=== PATIENT | female | born 1990 | race Caucasian/White ===

== ENCOUNTER 2021-01-18 16:24 | Outpatient (REF) | payer BC, SELFPAY ==
[2021-01-20 11:24] LABS: COVID-19 RT-PCR UVMMC Result Negative (Negative)
== END 2021-01-18 16:25 | disposition home or self-care (01) ==
LOC: LBN 16:24
PROVIDERS: Visit Provider Nurse Practitioner Family
DX: Z20.822 Contact with and (suspected) exposure to COVID-19 (principal); J00 Acute nasopharyngitis [common cold]
CPT/HCPCS: U0003

== ENCOUNTER 2021-05-15 11:37 | Outpatient (REF) | payer BC, SELFPAY ==
--- NOTE | 2021-05-15 11:15 | PAPFT_PTH ---
PATIENT: Thao Garzon LOC: [facility] U#:[id number] AGE/SX: 30/F ROOM: RE05/15/[address]: Shayla Fish NP : [id number] BED: DIS: 05/15/2021 SPEC #: [id number] RECD: 05/15/21 13:07 STATUS: ZAC REPadma #: [id number] ARSENIO: 05/15/21 11:[address]: Shayla Fish NP DEPT: [facility] Cytology RECD BY: Ambreen Ratliff ENTERED: 05/15/21 13:07 SP TYPE: PAPFT OT DR: Unknown,Unknown Tissues: 1 - CX/ENDOCX FOR PAP SMEARS Procedures: PAP THIN PREP/UVM Screening HPV DNA PROBE Comments: [id number]
== END 2021-05-15 11:38 | disposition home or self-care (01) ==
LOC: LBN 11:37
PROVIDERS: Visit Provider Nurse Practitioner Women's Health
DX: Z12.4 Encounter for screening for malignant neoplasm of cervix (principal); Z11.51 Encounter for screening for human papillomavirus (HPV)
CPT/HCPCS: 88142; 87624

== ENCOUNTER 2022-05-28 01:52 | Outpatient (CLI) | payer BC, SELFPAY ==
[2022-05-28 16:14] LABS: Abs Immature Grans 0.02 10^3/uL (0.0-0.06); Absolute Basophil Count 0.03 10^3/uL (0.0-0.2); Absolute Lymphocyte Count 1.54 10^3/uL (1.2-3.4); Absolute Monocyte Count 0.47 10^3/uL (0.1-0.8); Basophils % 0.4; Eosinophils % 2.7; HCT 37.7 % (36.0-46.0); HGB 13.3 g/dL (11.2-15.7); Immature Grans % 0.3; Lymphocytes % 20.9; MCH 29.4 pg (27.0-33.0); MCHC 35.3 % (32.0-36.0); MCV 83 fL (80-95); MPV 9.6 fL (8.0-11.0); Monocytes % 6.4; Neutrophils % 69.3; Platelet Count 224 10^3/uL (130-400); RBC 4.52 10^6/uL (3.93-5.22); RDW 11.9 % (11.7-14.6); RDW-SD 35.9 fL; WBC 7.36 10^3/uL (4.4-10.8)
[2022-05-29 20:01] LABS: Hepatitis B Surface Ag Negative (Negative)
[2022-05-29 20:31] LABS: Hepatitis C Ab w Rflx HCV PCR Negative (Negative)
[2022-05-29 20:33] LABS: HIV-1/2 Ag & Ab Screen Negative (Negative)
[2022-05-30 11:17] LABS: Varicella IgG Antibody Positive (See Note)
[2022-05-30 11:22] LABS: Rubella IgG Ab (UVM) Positive (See Note)
[2022-05-31 14:24] LABS: Syphilis IgG w/Reflex Nonreactive (Nonreactive)
== END 2022-05-28 01:53 | disposition home or self-care (01) ==
LOC: LBO 01:53
PROVIDERS: Visit Provider Advanced Practice Midwife
DX: Z34.91 Encounter for supervision of normal pregnancy, unspecified, first trimester (principal)
CPT/HCPCS: 36415; 86787; 86803; 86850; 86900; 86901; 87340; 87389; 85025; 86762; 86780

== ENCOUNTER 2022-05-28 16:00 | Outpatient (REF) | payer BC, SELFPAY ==
[2022-05-30 13:40] LABS: Chlamydia Result Negative (Negative); GC Result Negative (Negative)
== END 2022-05-28 16:01 | disposition home or self-care (01) ==
LOC: LBN 16:00
PROVIDERS: Visit Provider Advanced Practice Midwife
DX: Z34.91 Encounter for supervision of normal pregnancy, unspecified, first trimester (principal); Z3A.11 11 weeks gestation of pregnancy; Z11.3 Encounter for screening for infections with a predominantly sexual mode of transmission
CPT/HCPCS: 87491; 87591; 87086

== ENCOUNTER 2022-06-13 02:32 | Outpatient (CLI) | payer BC, SELFPAY ==
[2022-06-13 08:42] LABS: Panorama Kit Sent via Fed Ex
== END 2022-06-13 02:33 | disposition home or self-care (01) ==
LOC: LBO 02:32
PROVIDERS: Visit Provider Advanced Practice Midwife
DX: Z34.91 Encounter for supervision of normal pregnancy, unspecified, first trimester (principal); Z3A.13 13 weeks gestation of pregnancy
CPT/HCPCS: 36415

== ENCOUNTER 2022-09-27 05:01 | Outpatient (CLI) | payer BC, SELFPAY ==
[2022-09-27 11:13] LABS: HCT 32.2 % (36.0-46.0); HGB 11.3 g/dL (11.2-15.7); MCH 30.5 pg (27.0-33.0); MCHC 35.1 % (32.0-36.0); MCV 87 fL (80-95); MPV 9.3 fL (8.0-11.0); Platelet Count 145 10^3/uL (130-400); RDW 12.6 % (11.7-14.6); RDW-SD 39.1 fL; WBC 7.62 10^3/uL (4.4-10.8)
[2022-09-27 11:40] LABS: Glucose,1 Hr (Glucola) 116 mg/dL (80-140)
== END 2022-09-27 05:02 | disposition home or self-care (01) ==
LOC: LBO 05:01
PROVIDERS: Visit Provider Advanced Practice Midwife
DX: Z34.93 Encounter for supervision of normal pregnancy, unspecified, third trimester (principal); Z3A.28 28 weeks gestation of pregnancy
CPT/HCPCS: 36415; 82950; 85027

== ENCOUNTER 2023-12-26 22:55 | Outpatient (REF) | payer OTHER, SELFPAY ==
[2023-12-26 14:21] LABS: Abs Immature Grans 0.01 10^3/uL (0.0-0.06); Absolute Basophil Count 0.06 10^3/uL (0.0-0.2); Absolute Eosinophil Count 0.31 10^3/uL (0.0-0.7); Absolute Lymphocyte Count 2.45 10^3/uL (1.2-3.4); Absolute Monocyte Count 0.35 10^3/uL (0.1-0.8); Absolute Neutrophil Count 2.62 10^3/uL (1.2-6.7); Eosinophils % 5.3 %; HCT 39.2 % (36.0-46.0); HGB 13.7 g/dL (11.2-15.7); Immature Grans % 0.2 %; Lymphocytes % 42.2 %; MCHC 34.9 % (32.0-36.0); MCV 83 fL (80-95); MPV 9.9 fL (8.0-11.0); Neutrophils % 45.3 %; Platelet Count 313 10^3/uL (130-400); RBC 4.72 10^6/uL (3.93-5.22); RDW 11.6 % (11.7-14.6); RDW-SD 34.7 fL
[2023-12-26 14:26] LABS: ESR 5 mm/hr (0-20)
[2023-12-26 15:29] LABS: ALT 20 U/L (14-59); AST 15 U/L (15-37); Albumin 4.2 g/dL (3.4-5.0); Alkaline Phosphatase 67 U/L (46-116); BUN 12 mg/dL (7-18); Bilirubin, Total 0.94 mg/dL (0.2-1.0); CREATININE 0.7 mg/dL (0.55-1.02); Calcium 9.5 mg/dL (8.5-10.1); Chloride 105 mmol/L (98-107); Estimated GFR 115.59 (mL/min/1.73m2); Glucose 94 mg/dL (74-106); Potassium 4.3 mmol/L (3.5-5.1); Sodium 143 mmol/L (136-145); TSH (W/Ref FT4) 0.98 uIU/mL (0.36-3.74); Total Protein 7.4 g/dL (6.4-8.2)
[2023-12-26 15:31] LABS: C-Reactive Protein < 0.50 mg/dL (<or=0.5)
--- OUTSIDE RECORDS SUMMARY | 2023-12-26 22:56 | XMS_ITS | Encounter Summary ---
Author Organization [facility] Address [facility] [place] [address] Care Team Providers Care Director Perioperative Name Role Phone Sruthi Zurita APRN Primary Care Provider [phone] Encounter Details Date Type Department Care Team (Latest Contact Info) Description 12/18/2022 Encounter Social History Tobacco Use Types Packs/Day Years Used Date Smoking Tobacco: Never Smokeless Tobacco: Never Overall Financial Resource Strain (CARDIA) Answe r Date Recorded How hard is it for you to pa y for the very basics like food, housing, medical care, and heating? Not hard at all 11/02/2022 Hunger Vital Sign Answer Date Recorded Within the past 12 months, y ou worried that your food would run out before you got the money to buy more. Never true 11/03/19 23 Within the past 12 months, t he food you bought just didn't last and you didn't have money to get more. Never true 11/02/2022 PRAPARE - Transportation Answer Date Re corded In the past 12 months, has l ack of transportation kept you from medical appointments or from getting medications? No 10/13 In the past 12 months, has l ack of transportation kept you from meetings, work, or from getting things needed for daily living? No 11/02/2022 Housing Stability Vital Sign Answer Sergey e Recorded In the last 12 months, was t here a time when you were not able to pay the mortgage or rent on time? No 11/02/2022 In the last 12 months, how many places have you lived? 1 11/02/2022 In the last 12 months, was t here a time when you did not have a steady place to sleep or slept in a half-way (including now)? No 11/02/2022 Sex and Gender Information Value Date Recorded Sex Assigned at Not on file Gender Identity Not on file Sexual Orientation Not on file documented as of this encounter Miscellaneous Notes * Note - Alba Cheatham RN - 12/18/2022 11:55 AM EST This note was copied from a baby's chart. Services Note: S/O 09:00 Met with mom Thao this morning. ANNE Cates present and supportive. She reports baby Rey had some cluster feeding sessions overnight. She reports she is still experiencing a sad feeling that is intense a short time after baby latches on. She recalls this did occur with breast feeding her older daughter as well. 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 She also has Raynaud Syndrome and has not been experiencing nipple discomfort with breast feeding this baby. She reports some cold sensitivity to her nipples with color change and discomfort with her first baby. She reports she still has some right sided nipple pain that occurs sharply for baby's first few sucks and then resolves as feeding continues. Left side is not really having much discomfort at all. On exam right nipple face has pinpoint scabbed red area at about 1 o'clock. She is applying [employer] nipple butter and also has hydrogel pads which are both providing relief. Offered to support latch session but Thao declined and felt they would be leaving shortly. She will call out for support if she wishes. A Experienced breast feeding mom experiencing feelings of sadness a short time after baby latches on, likely dysphoric milk ejection reflex, also has Raynaud Syndrome but is not having any nipple color change with feedings thus far. P Offered support and encouragement. Reviewed management of breast engorgement symptoms and nipple pain management. Encouraged Thao to reach out for follow up visit on 6L if she felt shewould like additional support. Feeding Plan: Offer breast feeding every two to three hours at early feeding cues. 20 minutes spent providing support and education, Thao verbalized understanding of information provided. Alba Cheatham RN IBCLC [facility] Services documented in this encounter Plan of Treatment Not on file documented as of this encounter Visit Diagnoses Not on filedocumented in this encounter Care Teams Director Perioperative Relationship Specialty Start Date End Date Sruthi Zurita, DOOR BUILDER [employer] [facility] [address] PCP - General Family Medicine 07/30/22 documented as of this encounter
--- OUTSIDE RECORDS SUMMARY | 2023-12-26 22:56 | XMS_ITS | Encounter Summary ---
Author Organization [facility] Address [facility] [place] [address] Care Team Providers Care Enzyme Chemist Name Role Phone Sruthi Zurita APRN Primary Care Provider [phone] Encounter Details Date Type Department Care Team (Late st Contact Info) Description 12/18/2022 Notes Only Obstetrics and Gynecology at [facility] [place] [id number] Kate Saenz, CCMA Social History Tobacco Use Types Packs/Day Years [...] place to sleep or slept in a halfway (including now)? No 11/02/2022 Sex and Gender Information Value Date Recorded Sex Assigned at Not on file Gender Identity Not on file Sexual Orientation Not on file documented as of this encounter Progress Notes * Kate Saenz CCMA - 12/18/2022 10:31 AM EST [facility] paperwork filled out and scanned into patients chart. documented in this encounter Plan of Treatment Not on file documented as of this encounter Visit Diagnoses Not on filedocumented in this encounter Care Teams Enzyme Chemist Relationship Specialty Start Date End Date Sruthi Zurita APRN [facility] [place] [address] PCP - General Family Medicine 07/30/22 documented as of this encounter
--- OUTSIDE RECORDS SUMMARY | 2023-12-26 22:56 | XMS_ITS | Encounter Summary ---
Author Organization [facility] Address [facility] [place] [address] Care Team Providers Care Freelance Web Designer Name Role Phone Sruthi Zurita APRN Primary Care Provider [phone] Encounter Details Date Type Department Care Team (Late st Contact Info) Description 01/01/2023 Telephone [place] [phone] [facility] [place] [address] Social History Tobacco Use Types Packs/Day Years [...] place to sleep or slept in a snf (including now)? No 11/02/2022 DH IPV Inpatient Questions Answer Date Recorded Does Anyone Try to Keep You From Having Contact with Others or Doing Things Outside Your Home? no 01/18/2023 Feels Threatened by Someone no 09/2022 Feels Unsafe at Home or Work/School no 01/18/2023 Physical Signs of Abuse Present no 01/18/2023 Sex and Gender Information Value Date Recorded Sex Assigned at Not on file Gender Identity Not on file Sexual Orientation Not on file documented as of this encounter Miscellaneous Notes * Telephone Encounter - Susu Alcocer - 01/07/2023 3:00 PM EST I called and left a message for patient to call [phone] directly and schedule surgery with Dr. STEPHEN . * Telephone Encounter - Susu Alcocer - 01/01/2023 1:52 PM EST I called and left a message for patient to call [phone] directly and schedule surgery with Dr. STEPHEN. documented in this encounter Plan of Treatment Not on file documented as of this encounter Visit Diagnoses Not on filedocumented in this encounter Care Teams Freelance Web Designer Relationship Specialty Start Date End Date [place] [address] PCP - General Family Medicine 07/30/22 documented as of this encounter
--- OUTSIDE RECORDS SUMMARY | 2023-12-26 22:56 | XMS_ITS | Encounter Summary ---
Author Organization [facility] Address [facility] [place] [address] Care Team Providers Care Meteorology Teacher Name Role Phone Sruthi Zurita APRN Primary Care Provider [phone] Encounter Details Date Type Department Care Team (Latest Contact Info) Description 12/27/2022 Travel Social History Tobacco Use Types Packs/Day Years [...] place to sleep or slept in a jail (including now)? No 11/02/2022 Sex and Gender Information Value Date Recorded Sex Assigned at Not on file Gender Identity Not on file Sexual Orientation Not on file documented as of this encounter Plan of Treatment Not on file documented as of this encounter Visit Diagnoses Not on filedocumented in this encounter Care Teams Meteorology Teacher Relationship Specialty Start Date End Date Sruthi Zurita, BELT MOLDER [address] [place] [address] PCP - General Family Medicine 07/30/22 documented as of this encounter
--- OUTSIDE RECORDS SUMMARY | 2023-12-26 22:56 | XMS_ITS | Encounter Summary ---
Author Organization [facility] Address [facility] [place] [address] Care Team Providers Care Venue Attendant Name Role Phone Sruthi Zurita APRN Primary Care Provider [phone] Reason for Referral * Physical Therapy (Routine) - Closed Specialty Diagnoses / Procedures Referred By Contac t Referred To Contact Physical Therapy Diagnoses Encounter for routine follow-up Pelvic Mario Hayward MD [facility] [place] [address] [address] [place] [address] Referral ID Status Reason Start Date Expiration Date V isits Requested Visits Authorized [id number] Closed Evaluate and Treat 01/30/2023 01/30/2024 12 12 Reason for Visit * Reason Comments Care Encounter Details Date Type Department Care Team (Latest Contact Info) Description 01/30/2023 2:30 PM EST Visit Obstetrics [place] [address] Mario Hayward MD [facility] OBSTET[facility] [place] [address] Encounter for routine follow-up Social History Tobacco Use Types Packs/Day Years Used Date Smoking Tobacco: Never Smokeless Tobacco: Never Alcohol Use Standard Drinks/Week Comments Not Asked 0 (1 standard drink = 0.6 oz pur e alcohol) 2 - 4 per week [facility] Utilities Answer Date Recorded In the past 12 months has th e electric, gas, oil, or water company threatened to shut off services in your home? No 01/30/2023 Humiliation, Afraid, Rape, and Kick questionnair e Answer Date Recorded Within the last year, have y ou been afraid of your partner or ex-partner? No 01/30/2023 Within the last year, have y ou been humiliated or emotionally abused in other ways by your partner or ex-partner? No Within the last year, have y ou been kicked, hit, slapped, or otherwise physically hurt by your partner or ex-partner? No 01/30/2023 Within the last year, have y ou been raped or forced to have any kind of sexual activity by your partner or ex-partner? No 01/30/2023 Overall Financial Resource Strain (CARDIA) Answe r Date Recorded How hard is it for you to pa y for the very basics like food, housing, medical care, and heating? Not hard at all 01/30/2023 Hunger Vital Sign Answer Date Recorded Within the past 12 months, y ou worried that your food would run out before you got the money to buy more. Never true 01/31/20 Within the past 12 months, t he food you bought just didn't last and you didn't have money to get more. Never true 01/30/2023 PRAPARE - Transportation Answer Date Re corded In the past 12 months, has l ack of transportation kept you from medical appointments or from getting medications? No 01/12 In the past 12 months, has l ack of transportation kept you from meetings, work, or from getting things needed for daily living? No 01/30/2023 Housing Stability Vital Sign Answer Sergey e Recorded In the last 12 months, was t here a time when you were not able to pay the mortgage or rent on time? No 01/30/2023 In the last 12 months, how many places have you lived? 1 01/30/2023 In the last 12 months, was t here a time when you did not have a steady place to sleep or slept in a assisted (including now)? No 01/30/2023 DH IPV Inpatient Questions Answer Date Recorded [...] on file documented as of this encounter Last Filed Vital Signs Vital Sign Reading Time Taken Comments Blood Pressure 105/69 01/30/2023 2:34 PM EST Pulse 67 01/30/2023 2:34 PM EST Temperature 36.2 ??C (97.2 ??F) 01/30/2023 2:34 PM ES T Respiratory Rate 17 01/30/2023 2:34 PM EST Oxygen Saturation 99% 01/30/2023 2:34 PM EST Inhaled Oxygen Concentration - - Weight 54.3 kg (119 lb 12.8 oz) 01/30/2023 2:34 PM EST Height 157.5 cm (5' 2) 01/30/2023 2:34 PM EST Body Mass Index 21.91 01/30/2023 2:34 PM EST documented in this encounter Progress Notes * Mario Hayward MD - 01/30/2023 2:30 PM EST 32 yo now about 6 weeks s/p at 40w1d vy VAVD for deep variables. PP course has been complicated by progressive carpal tunnel syndrome. Had surgery on 01/18/23. Improved symptoms. Previously used Nuva Ring. Contraception plan: Nuva Ring Had abnormal pap 9 years ago. Received HPV vaccine. Several normal PAPs. Probably last 2-3 years. Desires to have regular [employer] perform pap smear. Interested in pospartum Pelvic floor PT - Referral placed. PAP smear deferred today. VSS, Afebrile Abd soft, NT. Uterus not palpable on abdominal exam. A/P: Doing well. Nuva Ring script sent Referral to pelvic floor PT. MD Floresita documented in this encounter Plan of Treatment Scheduled Referrals Name Type Priority Associated Diagnoses Orde r Schedule Referral to Physical Therapy Outpatient Referral Routine Encounter for routine follow-up Ordered: 01/30/2023 documented as of this encounter Visit Diagnoses Diagnosis Encounter for routine follow-up Routine follow-up documented in this encounter Care Teams Venue Attendant Relationship Specialty Start Date End Date Sruthi Zurita, CONRAD [address] [place] [address] PCP - General Family Medicine 07/30/22 documented as of this encounter
--- OUTSIDE RECORDS SUMMARY | 2023-12-26 22:56 | XMS_ITS | Encounter Summary ---
Author Organization [facility] Address [facility] [place] [address] Care Team Providers Care Animal Keeper Head Name Role Phone Sruthi Zurita APRN Primary Care Provider [phone] Encounter Details Date Type Department Care Team (Late st Contact Info) Description 12/28/2022 Notes Only Obstetrics and Gynecology at [facility] [place] [phone] Ibeth Monson LPN Social History Tobacco Use Types Packs/Day Years [...] place to sleep or slept in a group home (including now)? No 11/02/2022 Sex and Gender Information Value Date Recorded Sex Assigned at Not on file Gender Identity Not on file Sexual Orientation Not on file documented as of this encounter Progress Notes * Ibeth Gonzales CMA - 12/28/2022 1:25 PM EST Breast pump order filled out and [facility] to [facility] at [phone] Ibeth Gonzales CMA documented in this encounter Plan of Treatment Not on file documented as of this encounter Visit Diagnoses Not on filedocumented in this encounter Care Teams Animal Keeper Head Relationship Specialty Start Date End Date Sruthi Zur[place] [address] PCP - General Family Medicine 07/30/22 documented as of this encounter
--- OUTSIDE RECORDS SUMMARY | 2023-12-26 22:56 | XMS_ITS | Encounter Summary ---
Author Organization [facility] [place] [address] Care Team Providers Care Coding Quality Analyst Name Role Phone Sruthi Zurita APRN Primary Care Provider [phone] Reason for Visit * Auth/Cert (Routine) Specialty Diagnoses / Procedures Referred By Contac t Referred To Contact Diagnoses Labor and delivery, indication for care Procedures VAGINAL DELIVERY Africa Osorio MD [facility] [place] [address] [facility] Referral ID Status Reason Start Date Expiration Date Visits Re quested Visits Authorized [id number] 1 1 Encounter Details Date Type Department Care Team (Latest Contact Info) Description 12/16/2022 2:18 AM EST - 12/18/2022 11:55 AM [facility] Hospital [place] [address] Africa Osorio MD [facility] [place] [address] Vacuum-assisted vaginal delivery Discharge Disposition: Home Social History Tobacco Use Types Packs/Day Years [...] place to sleep or slept in a fdc (including now)? No 11/02/2022 Sex and Gender Information Value Date Recorded Sex Assigned at Not on file Gender Identity Not on file Sexual Orientation Not on file documented as of this encounter Last Filed Vital Signs Vital Sign Reading Time Taken Comments Blood Pressure 117/78 12/18/2022 8:46 AM EST Pulse 71 12/18/2022 8:46 AM EST Temperature 36.8 ??C (98.2 ??F) 12/18/2022 8:46 AM ES T Respiratory Rate 16 12/18/2022 8:46 AM EST Oxygen Saturation 99% 12/18/2022 8:46 AM EST Inhaled Oxygen Concentration - - Weight - - Height - - Body Mass Index - - documented in this encounter Discharge Summaries * Winsome Perez MD - 12/18/2022 11:55 AM EST Images from the original note were not included. Discharge Summary Patient Name: Thao Garzon Patient Age: 32 y.o. Language: Luxembourgish Race: White Ethnicity: Not nor Admit date: 12/16/2022 Discharge date and time: 12/18/2022 Attending Physician: No att. providers found Discharge Physician: Mario Hayward MD Care Provider: GIOVANY Referring Hospital: N/a Follow-up Recommendations for Providers: - Routine 6 week visit Inpatient Provider Contact Information: [facility] [employer] Department, Discharge Diagnoses (Hospital Problems) and Secondary Diagnoses (Chronic Problems) Active Hospital Problems Diagnosis Labor and delivery, indication for care Resolved Hospital Problems No resolved problems to display. Active Non-Hospital Problems Diagnosis Encounter for supervision of other normal , third trimester Raynaud's syndrome Dyspareunia in female Operations/Major Procedures: : CHARLES Indication for Admission: active labor History of Presentation: Thao Garzon is a 32 y.o. at 40w1d gestation being admitted for labor management. Admission History HPI: Thao presents to the [facility] due to concern for SROM. Approximately half an hour ago experienced a gush of clear fluid with some tinges of blood. Continues to leak copious amounts of clear fluid. Very much wants epidural, is flori painfully. Is scheduled for an elective induction today given advanced cervical dilation and proximity to hospital. Her has been complicated by: -- History of vacuum-assisted vaginal delivery for indeterminate status Review of Systems: Negative to complete review except as noted in the HPI. Hospital Course Including Delivery and Events The patient was admitted through OB triage for spontaneous rupture of membranes. Her cervix was checked and it was noted to be 5 cm. Due to some deep variable decelerations in the second stage of labor, a discussion was had about the use of a vacuum to assist in delivery. She consented to this and it was completed without complication. There was one pop off and two pulls. She subsequently underwent spontaneous vaginal delivery with epidural for analgesia. She had an EBL of 250 cc without complication. She delivered a liveborn male infant with APGARs of 7 and 9, and weight of 4080 gm. She had a second degree laceration that was repaired with 3-0 vicryl suture. Her course was otherwise uneventful. Her pain was well controlled with oral pain medications. She was tolerating a regular diet, was ambulating and voiding without difficulty, and was passing flatus. Her fundal exam was as expected, and her lochia was within normal limits. She was establishing breast feeding of her . Patient planned Nuva Ring at 6 weeks for contraception. She was discharged to home on PPD#2 with plans for follow up in clinic as above. Delivery Information Information for the patient's : Rey Garzon [[id number]] INFORMATION Rey Garzon 12/16/2022 8:10 AM by Vaginal, Vacuum (Extractor) Sex: male Gestational Age: 40w1d Measurements: Weight: 8 lb 15.9 oz (4080 g) APGARS One Minute Five Minutes Ten Minutes Totals: 7 9 Blood Loss: OB OR Quantitative Blood Loss Totals 12/15/22 1602 - 12/16/22 0302 None Vital signs at Discharge: BP: 117/78, Heart Rate: 71, Temp: 36.8 ??C (98.2 ??F), Resp: 16, Functional and Cognitive status: stable Important Studies and Lab Data: Labs: Last 3 wbc, hgb, hct plt Recent Labs 12/16/22 0405 11/02/22 1118 WBC 7.1 9.8* HGB 11.6* 12.2 HCT 34.6* 36.4 PLATELET 181 216 No results found for this or any previous visit (from the past 72 hour(s)). Studies: N/a Pending Studies and Lab Data: None Discharge Conditions/Prognosis: good Discharge to: Home Contraceptive Plans: Considering NuvaRing at 6 weeks Allergies at Discharge: Allergies Allergen Reactions Cephalosporins Rash NA Rash Grass Pollen Other (See Comments) Seasonal allergies, allergic rhinitis Sulfa (Sulfonamide Antibiotics) Rash Rash Other reaction(s): Rash NA Rash Sulfasalazine Rash Immunizations Given this Hospitalization: Immunization History Administered Date(s) Administered HPV, Quadrivalent 12/22/2013, 01/29/2014, 08/02/2014 Hepatitis B Vaccine, Ped/adol 03/03/1996, 05/18/1997, 05/26/1998 Hib Prp-omp 10/17/1989 Hib, Unspecified Formulation 10/17/1989 Inactivated Polio Vaccine 1988, 1988, 01/14/1989, 08/18/1993 Influenza Vaccine, Unspecified Formulation 11/16/2016 MMR Vaccine, Live 10/17/1989, 05/18/1997 Meningococcal Polysaccharide (A,C,Y,W-135) Diphtheria Toxoid Conjugate (MCV4P) 01/07/2007 Meningococcal polysaccharide (groups A, C, Y, W-135) TT conjugate 01/07/2007 Moderna Covid-19 Monovalent 12Yr+ (Master Plumber 100mcg) 02/10/2020, 03/15/2020 Td Vaccine, Adult, Unspecified Formulation 05/18/1997 Tdap Vaccine 06/30/2007 Tuberculin Skin Test, PPD 04/21/2016, 04/25/2016 Discharge Medications: Your Medications New Medications Dose Details acetaminophen 325 mg tablet Commonly known as: Tylenol Take 2 tablets by mouth every 6 hours as needed for Pain. 650 mg Refills: 0 ibuprofen 600 mg tablet Commonly known as: Advil Take 1 tablet by mouth every 6 hours as needed for Pain. 600 mg Refills: 0 Continued medications, unchanged Dose Details escitalopram 10 mg tablet Commonly known as: Lexapro Take 10 mg by mouth daily. 10 mg Refills: 0 1+1 ORAL Take by mouth. Refills: 0 Smoking Status at Discharge: Social History Tobacco Use Smoking Status Never Smokeless Tobacco Never Instructions Given to Patient at Discharge: There are no outpatient Patient Instructions on file for this admission. General Instructions Nurse Inpatient Note - Vaginal Delivery Follow-ups: ? 2 week and 6 week visit will be scheduled with your primary OB provider ? 6 week visit will be scheduled with your primary OB provider ? please call to schedule your 6 week visit with your primary OB provider Maternal Discharge Instructions Rest: Although it may seem impossible to get enough rest, simple planning will help. Plan to rest, and/or sleep when your baby does. Limiting visitors also helps. Other family members can help by doing housework, caring for other children and/or helping limit visitors. Activity: Exercise can be gradually increased following your delivery, depending on the doctor's recommendation. It is recommended that you do not swim until the vaginal bleeding stops or perform anyheavy lifting for six weeks. ???Aim to stay active for 20-30 minutes a day. When you first start exercising after childbirth, try simple exercises that help strengthen major muscle groups, including abdominal and backmuscles. Gradually add moderate- intensity exercise. Remember, even 10 minutes of exercise benefits your body. If you exercised vigorously before or you are a adult school counselor, you can work up to vigorous-intensity activity. Stop exercising if you feel pain.?? https://www.acog.org/Patients/FAQs/Wgajponu-Feyug-Fchlsasqm?IsMobileSet=false#ho w Nutrition: Your diet following the of your baby is as important as it was before the baby wasborn. Drinking a minimum of 6-8 glasses of water a day will help keep you hydrated. Continue takingyour vitamins until you are no longer . Do not attempt to lose weight during the first six weeks. Sweating. Hormonal changes following delivery frequently cause night sweats which are normal over the next 6 weeks. Sleeping on towels and using a fan may make you more comfortable. Lochia: (Flow) Your flow should be no heavier than a normal period. It will be bright red and then transition to pink, brown, yellow, and finally colorless. This may last a few weeks. If your vaginalbleeding becomes bright red again, decrease your activity. We recommend pelvic rest until your bleeding and spotting stops and your episiotomy or vaginal tearhas healed. This may take up to six weeks. Pelvic rest includes activities such as douching, use oftampons/menstrual cups or sexual intercourse. Bladder: For the next 2 weeks, empty your bladder every 2 hours while awake and at least every 4 hours at night. Perineum: For about a week continue to rinse yourself with warm water when you use the toilet. A sitz bath with Epsom salt taken 2 times a day and use of witch lee ann may help relieve soreness. Kegel exercise, done regularly throughout the day, will help tighten the perineal muscles and speed recovery. If you received any stitches, these will dissolve on their own and do not need to be removed. If you had a 3rd degree or 4th degree vaginal laceration continue taking stool softeners as recommended by the doctor. Breast Care for mothers: Practice careful positioning and frequent feeding as demonstrated in the hospital. The printed information in your packet covers this in detail. For More Information: https://www.acog.org/Patients or refer to ACOG's Your and Childbirth: Month to Month book which you may have received from the OB Clinic. Medications: Please take your medication exactly as prescribed. Read all instructions that come with your medication. Using narcotic pain medication (such as oxycodone, hydromorphone (Dilaudid), morphine, fentanyl, ortramadol) may cause addiction. While addiction is more common in people with a personal or family history of addiction, it can occur in anyone. Taking more than the prescribed amount of medication or using with alcohol or other drugs can causeyou to stop breathing resulting in coma, brain damage, or . Opioids (oxycodone, hydromorphone/Dilaudid, morphine, fentanyl, tramadol) can slow reaction time, cause drowsiness, or cloud judgement. It is unsafe for you to drive or operate heavy machinery while taking this medication. Opioids (oxycodone, hydromorphone/Dilaudid, morphine, fentanyl, tramadol) are at risk of being diverted by anyone with access to your home. Opioids should be stored in a safe and secure place, such as a locked cabinet or safe. Unused opioids (oxycodone, hydromorphone/Dilaudid, morphine, fentanyl, tramadol) should be disposedof according to the label or patient information. If there are no specific instructions, medications may be returned to a take-back location or mixed with a small amount of water and an undesirable waste substance such as coffee grounds or cat litter. If you were taking opioids like heroin, methadone, Percocet and buprenorphine during and you stopped for any period of time, you are now more sensitive to this drug. That means that your old dose will be too strong, and you will be at risk for overdose if you take it. As we all are aware, opioid use is a concern in [place] and [place]. We recommend that families with any member at risk for overdose have a prescription for naloxone to reverse an overdose. Your providers would be happy to give you one. Depression occurs in a large percentage of women. It often occurs after 2 weeks and can last weeks or months. This is different than ??? blues?? which can occur during the firstfew days after you deliver. https://www.acog.org/Patients/FAQs/-Depression Signs of depression: Feeling sad, hopeless or losing interest in daily activities. Having a hard time falling asleep or sleeping too much; feeling tired even after a good sleep. Eating too much or too little. Writing, talking or thinking about hurting yourself or someone else. Call your provider or nurse as soon as you notice any of these signs or feel overwhelmed. Emergency Resources National Suicide Hotlines: or [place]: Call/Text [facility] Mental Health Crisis Hotline: Call/Text [facility] Health Hotline: Call/Text Call your doctor or md urologist for: Seizure (call 911) Headache which isn't relieved with Tylenol Headache with visual changes Pain in your chest Shortness of breath Pain in upper right abdomen Fever more than 100.4 F Breast with hot, hard, tender areas plus flu-like symptoms including muscle aches and feeling unwell all over Increased abdominal pain, nausea, shaking chills Increased pain in the area of stitches outside your vagina Heavy bleeding that saturates a pad an hour Clots larger than an egg Red or swollen leg which is painful or warm to the touch Feeling of bladder fullness or pain Unable to urinate when feeling the urge Pain or bleeding with urination Urinary leakage without coughing or sneezing Urinary urgency or increased frequency Keep your follow up appointment. You may call the [facility] at any time for guidance or for answers to questions that come up prior to you follow up appointment. Your [facility] Provider can be reached during office hours at [facility] AFTER OFFICE HOURS for the ceramic maker demonstrator or md urologist coordinator of rehabilitation services Post- Warning Signs Most women who give recover without problems. But any woman can have complications after the of a baby. Learning to recognize these POST- warning signs and knowing what to do can save your life. These post- warning signs can become life-threatening if you don't receive medical care right away because: Pain in chest, obstructed breathing or shortness of breath (trouble catching your breath) may mean you have a blood clot in your lung or a heart problem Seizures may mean you have a condition called eclampsia Thoughts or feelings of wanting to hurt yourself or your baby may mean you have depression Bleeding (heavy), soaking more than one pad in an hour or passing an egg-sized clot or bigger may mean you have an obstetric hemorrhage Incision that is not healing, increased redness or any pus from episiotomy or C- section site may mean you have an infection Redness, swelling, warmth, or pain in the calk area of your leg may mean you have a blood clot Temperature of 100.4??F or higher, bad smelling vaginal blood or discharge may mean you have an infection Headache (very painful), vision changes, or pain in the upper right area of your belly may mean youhave high blood pressure or post preeclampsia Provider electronic signature confirms that discharge instructions were reviewed with the patient. A copy was printed and given to the patient. Future Appointments and Orders Future Appointments and Orders Future Appointments Provider Department Dept Phone 01/29/2023 10:15 AM Mario Hayward MD Obstetrics and Gynecology at [facility] Arrive at: [employer] [facility] [phone] Future Orders Complete By Expires Follow-up [ROL282 Custom] As directed Process Instructions: Scheduling Instructions: Comments: - gestational diabetic counseling with manager real estate at the time of the visit if there is a diagnosis of gestational diabetes. Questions: Discharge References/Attachments None documented in this encounter Discharge Instructions * Discharge Instructions* Jennifer Minaya RN - 12/18/2022 10:01 AM EST Images from the original note were not included. Nurse Inpatient Note - Vaginal Delivery Follow-ups: ? 2 week and 6 week visit will be scheduled with your primary OB provider ? 6 week visit will be scheduled with your primary OB provider ? please call to schedule your 6 week visit with your primary OB provider Maternal Discharge Instructions Rest: Although it may seem impossible to get enough rest, simple planning will help. Plan to rest, and/or sleep when your baby does. Limiting visitors also helps. Other family members can help by doing housework, caring for other children and/or helping limit visitors. Activity: Exercise can be gradually increased following your delivery, depending on the doctor's recommendation. It is recommended that you do not swim until the vaginal bleeding stops or perform anyheavy lifting for six weeks. ???Aim to stay active for 20-30 minutes a day. When you first start exercising after childbirth, try simple exercises that help strengthen major muscle groups, including abdominal and backmuscles. Gradually add moderate- intensity exercise. Remember, even 10 minutes of exercise benefits your body. If you exercised vigorously before or you are a adult school counselor, you can work up to vigorous-intensity activity. Stop exercising if you feel pain.?? https://www.acog.org/Patients/FAQs/Schbeiny-Slpbl-Rlrnfbczl?IsMobileSet=false#ho w Nutrition: Your diet following the of your baby is as important as it was before the baby wasborn. Drinking a minimum of 6-8 glasses of water a day will help keep you hydrated. Continue takingyour vitamins until you are no longer . Do not attempt to lose weight during the first six weeks. Sweating. Hormonal changes following delivery frequently cause night sweats which are normal over the next 6 weeks. Sleeping on towels and using a fan may make you more comfortable. Lochia: (Flow) Your flow should be no heavier than a normal period. It will be bright red and then transition to pink, brown, yellow, and finally colorless. This may last a few weeks. If your vaginalbleeding becomes bright red again, decrease your activity. We recommend pelvic rest until your bleeding and spotting stops and your episiotomy or vaginal tearhas healed. This may take up to six weeks. Pelvic rest includes activities such as douching, use oftampons/menstrual cups or sexual intercourse. Bladder: For the next 2 weeks, empty your bladder every 2 hours while awake and at least every 4 hours at night. Perineum: For about a week continue to rinse yourself with warm water when you use the toilet. A sitz bath with Epsom salt taken 2 times a day and use of witch lee ann may help relieve soreness. Kegel exercise, done regularly throughout the day, will help tighten the perineal muscles and speed recovery. If you received any stitches, these will dissolve on their own and do not need to be removed. If you had a 3rd degree or 4th degree vaginal laceration continue taking stool softeners as recommended by the doctor. Breast Care for mothers: Practice careful positioning and frequent feeding as demonstrated in the hospital. The printed information in your packet covers this in detail. For More Information: https://www.acog.org/Patients or refer to ACOG's Your and Childbirth: Month to Month book which you may have received from the OB Clinic. Medications: Please take your medication exactly as prescribed. Read all instructions that come with your medication. Using narcotic pain medication (such as oxycodone, hydromorphone (Dilaudid), morphine, fentanyl, ortramadol) may cause addiction. While addiction is more common in people with a personal or family history of addiction, it can occur in anyone. Taking more than the prescribed amount of medication or using with alcohol or other drugs can causeyou to stop breathing resulting in coma, brain damage, or . Opioids (oxycodone, hydromorphone/Dilaudid, morphine, fentanyl, tramadol) can slow reaction time, cause drowsiness, or cloud judgement. It is unsafe for you to drive or operate heavy machinery while taking this medication. Opioids (oxycodone, hydromorphone/Dilaudid, morphine, fentanyl, tramadol) are at risk of being diverted by anyone with access to your home. Opioids should be stored in a safe and secure place, such as a locked cabinet or safe. Unused opioids (oxycodone, hydromorphone/Dilaudid, morphine, fentanyl, tramadol) should be disposedof according to the label or patient information. If there are no specific instructions, medications may be returned to a take-back location or mixed with a small amount of water and an undesirable waste substance such as coffee grounds or cat litter. If you were taking opioids like heroin, methadone, Percocet and buprenorphine during and you stopped for any period of time, you are now more sensitive to this drug. That means that your old dose will be too strong, and you will be at risk for overdose if you take it. As we all are aware, opioid use is a concern in [place] and [place]. We recommend that families with any member at risk for overdose have a prescription for naloxone to reverse an overdose. Your providers would be happy to give you one. Depression occurs in a large percentage of women. It often occurs after 2 weeks and can last weeks or months. This is different than ??? blues?? which can occur during the firstfew days after you deliver. https://www.acog.org/Patients/FAQs/-Depression Signs of depression: Feeling sad, hopeless or losing interest in daily activities. Having a hard time falling asleep or sleeping too much; feeling tired even after a good sleep. Eating too much or too little. Writing, talking or thinking about hurting yourself or someone else. Call your provider or nurse as soon as you notice any of these signs or feel overwhelmed. Emergency Resources [place] Suicide Hotlines: or [place]: Call/Text [facility] Mental Health Crisis Hotline: Call/Text [facility] Health Hotline: Call/Text Call your doctor or md urologist for: Seizure (call 911) Headache which isn't relieved with Tylenol Headache with visual changes Pain in your chest Shortness of breath Pain in upper right abdomen Fever more than 100.4 F Breast with hot, hard, tender areas plus flu-like symptoms including muscle aches and feeling unwell all over Increased abdominal pain, nausea, shaking chills Increased pain in the area of stitches outside your vagina Heavy bleeding that saturates a pad an hour Clots larger than an egg Red or swollen leg which is painful or warm to the touch Feeling of bladder fullness or pain Unable to urinate when feeling the urge Pain or bleeding with urination Urinary leakage without coughing or sneezing Urinary urgency or increased frequency Keep your follow up appointment. You may call the [facility] at any time for guidance or for answers to questions that come up prior to you follow up appointment. Your [facility] Provider can be reached during office hours at [facility] AFTER OFFICE HOURS for the ceramic maker demonstrator or md urologist coordinator of rehabilitation services Post- Warning Signs Most women who give recover without problems. But any woman can have complications after the of a baby. Learning to recognize these POST- warning signs and knowing what to do can save your life. These post- warning signs can become life-threatening if you don't receive medical care right away because: Pain in chest, obstructed breathing or shortness of breath (trouble catching your breath) may mean you have a blood clot in your lung or a heart problem Seizures may mean you have a condition called eclampsia Thoughts or feelings of wanting to hurt yourself or your baby may mean you have depression Bleeding (heavy), soaking more than one pad in an hour or passing an egg-sized clot or bigger may mean you have an obstetric hemorrhage Incision that is not healing, increased redness or any pus from episiotomy or C- section site may mean you have an infection Redness, swelling, warmth, or pain in the calk area of your leg may mean you have a blood clot Temperature of 100.4??F or higher, bad smelling vaginal blood or discharge may mean you have an infection Headache (very painful), vision changes, or pain in the upper right area of your belly may mean youhave high blood pressure or post preeclampsia Provider electronic signature confirms that discharge instructions were reviewed with the patient. A copy was printed and given to the patient. documented in this encounter Medications at Time of Discharge Medication Sig Dispensed Refills Start Date End Date ibuprofen (Advil) 600 mg tablet Take 1 tablet by mouth every 6 hours as needed for Pain. 12/18/2022 escitalopram (Lexapro) 10 mg tablet Take 10 mg by mouth daily. 10/12/2022 vit/iron fum/folic ac ( 1+1 ORAL) Take by mouth. acetaminophen (Tylenol) 325 mg tablet Take 2 tablets by mouth every 6 hours as needed for Pain. 12/18/2022 documented as of this encounter Progress Notes * Winsome Perez MD - 12/18/2022 6:43 AM EST Vaginal Delivery Note Patient ID: Thao Garzon is a 32 y.o. PPD#2 after VAVD at 40w1d gestation. Delivery otherwise uncomplicated. S: Thao is feeling well this AM. Pain: well controlled with oral medications Diet: tolerating regular diet without n/v Ambulating: without assistance Voiding: without problems Lochia: minimal; improved yesterday afternoon O: Last value Range last 24 hrs Temperature Temp: 37.1 ??C (98.8 ??F) Temp: [36.7 ??C (98.1 ??F)-37.1 ??C (98.8 ??F)] Heart Rate Heart Rate: 71 Heart Rate: [64-71] Blood Pressure BP: 112/71 BP: (111-112)/(71-74) Respiratory Rate Resp: 16 Resp: [16-18] SpO2 SpO2: 100 % SpO2: [99 %-100 %] No intake or output data in the 24 hours ending 12/18/22 0643 Exam: Gen: NAD Abdomen: soft, undus firm 2cm below umbilicus. Extremities: nontender, no LE edema. Neuro: grossly intact Labs: Recent Labs 12/16/22 0405 WBC 7.1 HGB 11.6* HCT 34.6* PLATELET 181 Assessment/Plan: Thao Garzon is a 32 y.o. s/p VAVD, doing well this morning. General Care Pt meeting appropriate milestones. Continue routine care. EBL 250. Pt asymptomatic for acute blood loss anemia. Continue to monitor for signs or symptoms of worsening anemia. VTE prophylaxis: ambulating Immunization needs: Rh +, rubella immune is going well Contraception plan: natural family planning; contemplating starting NuvaRing at 6 weeks Anticipate discharge on PPD#2 This patient was seen and discussed on rounds. Winsome Perez MD, PGY4 12/18/2022 * Marisol Durbin RN - 12/17/2022 7:02 AM EST Thao did well overnight, VSS, bleeding normal, taking motrin/tylenol for pain. Some blister damage to nipples. Worked on getting a deeper latch overnight. Encouraged the pt to call for feeds. WCTM. * Hazel Medina MD - 12/17/2022 6:29 AM EST Vaginal Delivery Note Patient ID: Thao Garzon is a 32 y.o. PPD#1 after VAVD at 40w1d gestation. Delivery otherwise uncomplicated. S: Thao is feeling well this AM. Pain: well controlled with oral medications, but noting some hand swelling Diet: tolerating regular diet without n/v Ambulating: without assistance Voiding: without problems Lochia: moderate, no blood clots O: Last value Range last 24 hrs Temperature Temp: 36.8 ??C (98.2 ??F) Temp: [36.4 ??C (97.5 ??F)-36.8 ??C (98.2 ??F)] Heart Rate Heart Rate: 59 Heart Rate: [59-79] Blood Pressure BP: 118/70 BP: (112-129)/(68-87) Respiratory Rate Resp: 16 Resp: [15-18] SpO2 SpO2: 97 % SpO2: [97 %-98 %] Intake/Output Summary (Last 24 hours) at 12/17/2022 0630 Last data filed at 12/16/2022 1100 Gross per 24 hour Intake 1300 ml Output 975 ml Net 325 ml Exam: Constitutional: Pleasant and conversant, appears well, NAD Cardiac: regular rate, well perfused Pulmonary: No increased work of breathing HEENT: normocephalic, atraumatic GI: Non-distended Abdomen: soft, NT/ND, no rebound or guarding, fundus firm 2cm below umbilicus. Extremities: nontender, no LE edema. Mild BL hand edema Neuro: grossly intact Labs: Recent Labs 12/16/22 0405 WBC 7.1 HGB 11.6* HCT 34.6* PLATELET 181 Assessment/Plan: Thao Garzon is a 32 y.o. s/p , doing well this morning. General Care Pt meeting appropriate milestones. Continue routine care. EBL 250. Pt asymptomatic for acute blood loss anemia. Continue to monitor for signs or symptoms of worsening anemia. VTE prophylaxis: ambulating Immunization needs: Rh +, rubella immune is going well Contraception plan: natural family planning Anticipate discharge on PPD#1-2 This patient was seen and discussed on rounds. Hazel Eivers, MD PGY-1 12/17/2022 Associated attestation - Mario Hayward MD - 12/18/2022 6:54 AM EST Patient seen, chart reviewed, discussed with team and agree with resident note. Doing well. Anticipate discharge home tomorrow. MD Floresita * Kulwant Blum MD - 12/16/2022 3:56 AM EST Intrapartum Progress Note S: Thao continues to report intermittent and sharp pain even with contractions, even with epidural in place . O: Last value Range last 8 hrs Temperature Temp: 36.6 ??C (97.9 ??F) Temp: [36.6 ??C (97.9 ??F)] Heart Rate Heart Rate: 91 Heart Rate: [78-118] Blood Pressure BP: 102/78 BP: (89-132)/(53-78) Respiratory Rate Resp: 22 Resp: [22] SpO2 SpO2: 96 % SpO2: [96 %] Cervical Exam: Dilation: 7 (12/16/22 0346) Effacement: 100 Station: +1 OB Examiner: Kulwant Blum FHR Baseline 125 /Moderate variability/ + accels/no decels [place]: Ctx q2-3 mins A/P: .32 y.o. at 40w1d in spontaneous labor, in active phase, will consider re-paging anesthesia for further epidural relief. Continue with expectant management anticipate Labor course and assessment: Cat 1 GBS status: neg Analgesia: epidural PPH risk: low Patient seen and discussed with Dr. Osorio, attending OBGYN Kulwant Blum MD, PGY3 Obstetrics and Gynecology 12/16/2022 Associated attestation - Africa Osorio MD - 12/16/2022 5:21 AM EST FHT and labor course reviewed. Agree with plan for expectant management Agree with plan to re-contact Anesthesia if patient still uncomfortable over the next 30 minutes. AFRICA OSORIO MD documented in this encounter H&P Notes * Kulwant Blum MD - 12/16/2022 2:46 AM EST Obstetrical Term Admission Note Thao Garzon is a 32 y.o. at 40w1d gestation being admitted for labor management. HPI: Thao presents to the [facility] due to concern for SROM. Approximately half an hour ago experienced a gush of clear fluid with some tinges of blood. Continues to leak copious amounts of clear fluid. Very much wants epidural, is flori painfully. Is scheduled for an elective induction today given advanced cervical dilation and proximity to hospital. Her has been complicated by: -- History of vacuum-assisted vaginal delivery for indeterminate status Review of Systems: Negative to complete review except as noted in the HPI. Obstetric Review of Systems Total Weight Gain this : 12.4 kg (27 lb 4.8 oz) Movement: normal Contractions: regular, every 3-4 minutes Leaking: approximately 2am? Bleeding: none Preeclampsia signs and symptoms: None Active Hospital Problems Diagnosis Labor and delivery, indication for care Resolved Hospital Problems No resolved problems to display. Active Non-Hospital Problems Diagnosis Encounter for supervision of other normal , third trimester Raynaud's syndrome Dyspareunia in female No past medical history on file. No past surgical history on file. OB History 2 Para 1 Term 1 AB Living 1 SAB IAB Ectopic Multiple Live Births 1 # Outc Date GA Lbr Doug/2nd Wgt Sex Del Anes PTL Lv 1 Term 04/2020 40w6d 03:59 / 00:28 3.355 kg (7 lb 6.3 oz) F Vag-Vacuum EPI No Living 2 Current Medications Prior to Admission Medication Sig Dispense Refill Last Dose escitalopram (Lexapro) 10 mg tablet Take 10 mg by mouth daily. vit/iron fum/folic ac ( 1+1 ORAL) Take by mouth. Allergies Allergen Reactions Cephalosporins Rash NA Rash Grass Pollen Other (See Comments) Seasonal allergies, allergic rhinitis Sulfa (Sulfonamide Antibiotics) Rash Rash Other reaction(s): Rash NA Rash Sulfasalazine Rash No family history on file. Social History Occupational History Not on file Tobacco Use Smoking status: Never Smokeless tobacco: Never Vaping Use Vaping Use: Never used Substance and Sexual Activity Alcohol use: Not on file Drug use: Not on file Sexual activity: Not on file Immunization History Immunization History Administered Date(s) Administered HPV, Quadrivalent 12/22/2013, 01/29/2014, 08/02/2014 Hepatitis B Vaccine, Ped/adol 03/03/1996, 05/18/1997, 05/26/1998 Hib Prp-omp 10/17/1989 Hib, Unspecified Formulation 10/17/1989 Inactivated Polio Vaccine 1988, 1988, 01/14/1989, 08/18/1993 Influenza Vaccine, Unspecified Formulation 11/16/2016 MMR Vaccine, Live 10/17/1989, 05/18/1997 Meningococcal Polysaccharide (A,C,Y,W-135) Diphtheria Toxoid Conjugate (MCV4P) 01/07/2007 Meningococcal polysaccharide (groups A, C, Y, W-135) TT conjugate 01/07/2007 Moderna Covid-19 Monovalent 12Yr+ (Master Plumber 100mcg) 02/10/2020, 03/15/2020 Td Vaccine, Adult, Unspecified Formulation 05/18/1997 Tdap Vaccine 06/30/2007 Tuberculin Skin Test, PPD 04/21/2016, 04/25/2016 Last Set of Vitals: There were no vitals taken for this visit. Physical Exam Gen: AAO, breathing thru ctx Cardio: nl rhythm, S1, S2, no M/C/R/G Pulm: CTA BL, no W/C/R Abd: soft, NT, ND, gravid Ext: warm, well-perfused, no SNEHAL or calf tenderness Neuro: grossly intact Uterine Size: S=D Clinical EFW: 8# Sterile Speculum: not indicated Cervix Exam: 5/100/0/soft/ant/cephalic Pelvis: proven to 7#6 Presentations: confirmed cephalic by BSUS Heart Rate Interpretation: Baseline: 135, Variability: moderate, Accels: yes, Decels: none, [place]: difficult to trace ABO/RH AB Pos, neg Hgb/Hct 12.2/36.4 Platelets 216k Varicella Immune Rubella Immune Syphillis GC/Chlam Neg, Neg Urine Culture HepBsAg Neg HepC Neg HIV Neg 1 hr GTT wnl 3 hr GTT GBS Neg Most Recent Growth Ultrasound 07/30/2022 detailed morph Normal anatomy EFW 407g Variable presentation Posterior placenta Assessment & Plan Thao Garzon is a 32 y.o. at 40w1d being admitted for labor management Heart Rate Assessment: Category 2 (no accels, not yet full 20 mins NST) Labor State: active labor Labor management: expectant management GBS Management: negative, no ppx required Hemorrhage Risk: low Contraception: discussion deferred given active labor and desire for epidural This patient was seen and discussed with Dr. Osorio, Attending PLANT MAINTENANCE ENGINEER. Kulwant Blum MD, PGY3 Obstetrics and Gynecology 12/16/2022 Associated attestation - Africa Osorio MD - 12/16/2022 4:11 AM EST I have seen and evaluated the patient and reviewed the above history with Dr. Blum. I agree with thedetails as written. The assessment and plan were formulated in discussion with me and I agree with them as documented. 32 year old at 40w1d presents in spontaneous labor at term with spontaneous rupture of membranes with clear fluid. PNC at [facility] and recent transfer to with plan to deliver here. PMHx: Raynaud's, ow negative No PSHx Past OB: presented in spontaneous labor at term. Progressed rapidly to full dilation. Used epidural. Pushed for about 10 min, had vacuum assisted vaginal due to changes in heart tracing. Exam here with normal blood pressure and vital signs Clinical EFW 3200 gm FHT 130, moderate monika, +accels Cvx as above Ctx q3 min Agree with plan for admission for labor management and epidural as desired. Anticipate . MD AFRICA KRUSE MD documented in this encounter Miscellaneous Notes * Plan of Care - Jennifer Minaya RN - 12/18/2022 11:31 AM EST Pt discharged home in stable condition. VSS, fundus, lochia WDL. Pt verbalizes understanding of printed discharge instructions and when to notify the provider. Pt agrees to follow-up. Pt ambulated off unit with support person. * Plan of Care - Alexsandra Montague RN - 12/18/2022 5:33 AM EST OUTCOME EVALUATION NOTE: OUTCOME SUMMARY: Patient has been doing well overnight. Bonding with baby and independently. VSS and lochia remains WNL. Pain well controlled and managed per plan. Voiding well independently. Family-centered care provided. PLAN MOVING FORWARD: Continue to assess VS, fundus, and lochia per orders and PRN. Treat pain as needed. Assist with and encourage bonding/rooming-in. INDIVIDUALIZED FALL PREVENTION INTERVENTIONS: Patient-specific fall risk factors per assessment: [current deficits]: None. Assistance [level of assistance required for transfers and ambulation]: Independent. Supervision [direct monitoring required during toileting and ADLs]: Independent. Will call prn for help OOB if feeling dizzy or weak. Surveillance [continuous indirect monitoring]: Rounding by RN. Call jordan within reach. Aware of when to call nurse. Patient-specific fall prevention interventions for sensory deficits provided, if applicable: [X] N/A CPG GOAL OUTCOME EVALUATION: * Note - Alba Cheatham RN - 12/17/2022 4:30 PM EST This note was copied from a baby's chart. ASSESSMENT INPATIENT Encounter Date/Time: 12/17/2022 / 12:00 Baby's name: Ashley Le : 12/16/[birth year]22 Time of : 8:10 AM Mode of Delivery: Vaginal, Vacuum (Extractor) Gestational Age: Gestational Age: 40w1d Baby age: 32 hours Birthweight: 8 lb 15.9 oz (4080 g) Weights since : Patient Vitals for the past 168 hrs: Weight 12/17/22 0300 3.89 kg (8 lb 9.2 oz) 12/16/22 0810 4.08 kg (8 lb 15.9 oz) Overall weight loss: -5% MATERNAL INFO: Thao Garzon [id number] 1990 G 2 P 2 Significant History: Previous experience: Yes--BF her previous baby for 9 months. Initial challenges with needed to pump to offer supplementation as baby was jaundiced and re-admitted for phototherapy. She also had early mastitis and struggled with latching baby on her right side after that. Breast Surgery: None Breast Changes During : Yes Breast Exam : Size: Medium large Shape: Rounded Venous Pattern: Within Normal Limits Milk Production: Colostral Phase Normal Encouraged breast massage and manual expression of milk to help baby remove the thicker colostrum with nursing sessions. Nipple Exam : Normal larger size Color: Vanderwagen/brown Compressible: Yes Trauma: Right side has line of compression with small blisters noted to nipple face, has been more painful than left, typically more uncomfortable as baby first latches on and discomfort lessens as baby feeds. Left slight redness slight latch discomfort when baby first latches on that improves as baby feeds Nipple Care Management: Work to achieve an asymmetric chin led latch making sure baby's lower lip and gum line are farther out on the maternal areolar area and not right at the base of the maternal nipple. Nipple Wound Care: 1. Cleanse nipples 2-3 times per day with mild soap, rinse well and pat dry 2. Apply thin layer of Earth Mama or natural ointment containing Calendula to nipple cracks after cleansing and after each or breast pumping session. There is no need to wash ointment off nipples prior to feeding or pumping. 3. Apply hydrogel pad to nipples after ointment for protection and to promote healing, remove hydrogel pads and rinse gel residue from maternal nipples with warm water and blot dry gently, then latchbaby. May re-apply hydrogel pads for 24 hours. 4. Notify your provider if breasts become hot, reddened, painful, your temperature rises above 100.5 or you experience flu-like symptoms (body aches, headache, fatigue). OBSERVATION: INFANT ASSESSMENT: Oral Motor Examination/Function: Mouth: Normal Jaw: Normal Lips: Normal tends to tuck lips under gum line at latch, encouraged Thao to gently flange them outwards. Gums: Normal Tongue: Normal resting position Palate: Normal with slightly high palatal arch Frenulum: Not assessed this session, it does not appear to be anteriorly placed. Coordination of Infant Suck: Smooth/rhythmic Position: Right: Laid back self attachment, cradle Left: Laid back self attachment, cradle Rooting: Normal Attachment: Adequate Swallow: Normal/Coordination Suck:Swallow Ratio: WNL for current colostrum supply Sucking Burst Pattern: Nutritive: Mature WNL Thao reports she has feelings of sadness as her baby begins his breast feeding sessions. She reports she had these feelings with her first baby as well. Discussed this may a dysphoric milk ejection reflex and likely is related to her dopamine levels decreasing as she experiences milk letdown Provided handout on D-DELFINO from the web-site D-DELFINO.org which discusses ways to help ease those symptoms such as drinking ice water when latching baby during the milk letdown phase, distraction, focusing on baby and breast feeding goals. This site also recommended vitamin B complex, vitamin D, Probioticsand Magnesium supplementation so recommended Thao speak to her obstetric provider for recommendations. PATIENT EDUCATION AND RECOMMENDATIONS: Benefits of frequent maternal- Skin to Skin (STS) contact at early feeding cues every 2 - 3 hours, awaken as needed Optimal positioning: [id number]-bk-[id number] positioning Zevv-bg-clkte technique Nutritive vs non-nutritive sucking Importance of consistently breaking suction, if infant does not self-detach Breast massage and manual expression techniques reviewed and encouraged around breast feeding sessions. Breast massage during , alternated with breast compression during pauses to help keep baby engaged in feedings if he becomes sleepy Alternative stimulation techniques/waking techniques/consoling techniques Principles of baby-led feedings/finish first breast first/attempt to BF on both sides at each feed (assess interest/satiety cues) Ventral/Recumbent with infants self-attachment encouraged to help Thao achieve a deeper asymmetric chin led latch Strategies to manage physiological engorgement Written contact information for [facility] Services prn Pamphlets Provided Feeding Log Your Guide to Breast Massage and Hand Expression Breast/Chest Engorgement Cracked or Abraded nipples [facility] Services Card with Community Resources On-going Concerns: Maternal history of Raynaud's Syndrome, taking Escitalopram and vitamins during .Mom verbalizing feelings of sadness as baby first latches on at breast feeding sessions that subsides as baby feeds, had this issue with her older baby as wells suspect Dysphoric Milk Ejection Reflex. Vacuum assisted vaginal delivery due to non-reassuring state- though baby delivered rapidly per parents, SROM clear amniotic fluid but baby was bulb suctioned and then deep suctioned for large amount of meconium stained secretions. Sore maternal nipples - improved comfort with deeper latch Monitor infant growth and nutrition closely Discharge Planning: -Follow-up with infant's PCP after discharge -VNA follow-up PRN -[facility] Services post-discharge, Mother will call if she desires further assistance -Local IBCLC support after discharge home, prn, parents are from [facility] -Feeding Plan: Offer breast feeding every two to three hours at early feeding cues Mom does not want to pump her breast milk for Le. Does not have a breast pump for use at home but knows she is eligible for one through insurance if she changes her mind. Offered support and education around dysphoric milk ejection reflex. -Keep a Feeding Log the first few weeks: record times/duration, pumping volumes, any supplement given, and infant stools/wet diapers; this journal can be helpful to review with the careprovider, VNA or reservoir engineering consultant. -Report difficulty waking, poor nursing and/or irritability to your provider 40 minutes were spent with this family, providing assessment, assistance, education, and support. Mother voices understanding of education and recommendations. Alba Cheatham RN, IBCLC [facility] Services * L&D Delivery Note - Winsome Perez MD - 12/16/2022 8:56 AM EST Vaginal Delivery Note Thao Garzon is a 32 y.o. year old woman at 40w1d weeks gestational age, who was admittedon 12/15 in spontaneous labor with spontaneous rupture of membranes. Her was otherwise notable for hx of VAVD. Her labor course was uncomplicated. She used epidural for analgesia. She was found to be complete at 0740 with the presenting part at +1 station. The FHR during the second stage was notable for some deep variables. Discussed benefits of vacuum with patient and family including shortening length of second stage due to FHR concerns. Patient agreed with procedure. center maker hand and ICN team notified. The head position was found to be +3. The Kiwi suction cup was applied over the sagittal suture about 3cm in front of the posterior fontenelle toward the face. Vacuum pressure was created with hand pump and established at 500mm Hg. The edge of the vacuum cup was carefully examined, and no maternal tissue was entrapped under the cup. With the left hand applying counter pressure on the vacuumcup to prevent pop-off, right hand applied gentle downward traction in coordination with uterine contraction and maternal pushing. Progressive descent was noted with each pull and the handle of the vacuum device was gradually elevated when the perineum began to bulge. There was 1 pop-off and 2 pulls. The cup was removed after the head delivery. Total time of vacuum application was less than 1 minute. The infant's head was delivered in a controlled fashion. There was no nuchal cord. The body was delivered without incident. Delivery occurred at 0810. A viable male infant was placed on maternal chest and had APGARS of 7 and 9 at 1 and 5 minutes and had a weight of 4080g. The cord was clamped in 2 places and transected. Cord blood was taken and cord gases were obtained. The fundus became firm with massage and pitocin. The placenta delivered spontaneously at 0816 and a 3-vessel cord was noted. Inspection of the vagina and perineum revealed a 2nd degree laceration which was repaired with 3-0 vicryl suture. The sulci were examined and found to be intact. No complications. Estimated blood loss was performed because amniotic fluid was not quantified immediately after delivery. EBL 250mL immediately following the delivery. Total blood loss including blood loss is pending. The patient was in stable condition after delivery. The remained in stable condition at the bedside. Dr. Vasquez, attending physician was present for the entire delivery without conflicting clinical responsibilities. Winsome Perez MD PGY4 12/16/2022 Information for the patient's : Ashley Garzon [[id number]] DELIVERY SUMMARY FOR Ashley Garzon (please note there is a separate summary for each fetus) 12/16/2022 8:10 AM by Vaginal, Vacuum (Extractor) Sex: male Gestational Age: 40w1d Labor Events labor?: No GBS colonized: negative steroids: None Rupture identifier: Rupture 1 Rupture date/time: 12/16/2022 0200 Rupture type: spontaneous rupture of membranes Fluid color: clear Labor onset type: spontaneous onset of labor Augmentation: None Labor onset date/time: 12/16/2022 0300 Labor Event Times Labor onset date/time: 12/16/2022 030 Dilation complete date/time: 12/16/2022 0740 Start pushing date/time: 12/16/2022 0747 Mother Delivery Perineal lacerations: 2nd Repaired: Yes Surgical or additional est. blood loss (mL): 0 Combined est. blood loss (mL): 0 Repair suture: Synthetic Delayed Absorbable Number of repair packets: 1 OB OR Quantitative Blood Loss Totals 12/16/220 - 12/16/22 1124 [facility] Hospital Encounter 85 mL Vaginal [facility] Hospital Encounter 340 mL Total 425 Delivery ([place]) Delivery Date: 12/16/22 Delivery Time: 8:10:00 AM Sex: Male Presentation: Vertex Position: Right Occiput Anterior Attempted ?: No Delivery Type: Operative Vaginal Delivery Type (Specific): Vaginal, Vacuum (Extractor) Major Indications - Operative Delivery: non-reassuring state Contributing Factors - Operative Vaginal: none Pre Vaginal Count?: Yes Post Vaginal Count?: Yes Count Correct?: Yes Total Number of Pulls:: 2 Total Time Vacuum Applied: 1 minute Numberof Popoffs: 1 Shoulder Dystocia Shoulder dystocia present?: No Delivery Information Delivery Location: delivery room Delivering Clinician: Winsome Perez MD ICN Staff Present: Yes Other Personnel: Provider Role Qing Grant, station engineer Nurse Dian Vasquez MD [employer]ressed [employer] Equipment Mechanic Marietta Carey, station engineer Assist Leidy Ivy, station engineer Nurse Anesthesia Method: Epidural Cord Vessels: 3 Vessels Complications: None Gases Sent?: Yes Cord Insertion: eccentric Assessment & APGARS Living status: Living Apgars 1 Minute: 5 Minute: 10 Minute 15 Minute 20 Minute Skin Color: 0 1 Heart Rate: 2 2 Reflex Irritability: 2 2 Muscle Tone: 2 2 Respiratory Effort: 1 2 Total: 7 9 Apgars Assigned By: RADHA URIARTE APRN Resuscitation Method: Suctioning Suctioning Method: bulb syringe, NG catheter Resuscitation Comment: Term infant born wtih HR>100, initial cry, placed on mother's chest, cordcut, placed on warmer, dried, stimulated & bulb suctioned. Deep suctioned for large amount meconium stained secretions. [place]. No open areas seen on scalp, no crepitous felt over clavicles. Placedback skin to skin with mother Maternal Feeding and Skin to Skin Maternal Choice for [place](s) Feeding on Admission: Skin to skin initiated date/time: 12/16/2022 Skin to skin with: Mother Reason skin to skin not initiated: [place] Acuity Medications [place] Medications Given: vitamin K, erythromycin Measurements Weight: 4080 g Length: 0.533 m Head circumference: 0.35 m Placenta Date and Time: 12/16/2022 8:16:00 AM Removal: Spontaneous Appearance: Intact Labor Length No data filed Associated attestation - Dian Vasquez MD - 12/16/2022 8:03 PM EST I was present for the entire delivery and repair and agree with above. Thao was found to be fully and began pushing. Upon pushing, recurrent deep variable decelerations were noted with slow returnto baseline. Given recurrent decels, vacuum assisted delivery was recommended. Thao and her partner agreed. Remainder of delivery uncomplicated. Dian Vasquez MD documented in this encounter Plan of Treatment Not on file documented as of this encounter Procedures Procedure Name Priority Date/Time Associated Diagnosis Comments SPECIMEN TO PATHOLOGY Routine 12/16/2022 8:56 AM EST TYPE AND SCREEN VALIDITY STAT 12/16/2022 4:05 AM EST ABORH RECHECK STATUS STAT 12/16/2022 4:05 AM EST HEMOGRAM STAT 12/16/2022 4:05 AM EST DIFFERENTIAL, AUTOMATED STAT 12/16/2022 4:05 AM EST ABO/RH TYPING STAT 12/16/2022 4:05 AM EST CBC (WITH DIFF) STAT 12/16/2022 4:05 AM EST ANTIBODY SCREEN STAT 12/16/2022 4:05 AM EST TYPE AND SCREEN ([facility]) STAT 12/16/2022 4:05 AM EST documented in this encounter Results * Specimen to Pathology (12/16/2022 8:56 AM EST) AP Specimen 12/16/2022 8:56 AM EST 12/16/2022 8:56 AM EST Narrative [facility] - 12/16/2022 8:56 AM EST Specimen requisition ordered. ??Separate Pathology report to follow Africa Osorio MD PATHOLOGY/CYTOLOGY O RDERABLES [facility] [place] [address] * Type and Screen Validity (12/16/2022 4:05 AM EST) T&S only valid at [facility] Comment:This Type and Screen result is only valid at the [facility] Blood 12/16/2022 4:05 AM EST 12/16/2022 4:21 AM EST Narrative Resulting Agency Comment Spec In Lab Kulwant Blum MD BLOOD BANK LAB ORDER YUKO Performing Organization Address City/[facility]/ZIP Co de Phone Number [facility] [place] [address] * ABORH Recheck Status (12/16/2022 4:05 AM EST) ABORH Type Recheck Completed [facility] Blood 12/16/2022 4:05 AM EST 12/16/2022 4:21 AM EST Narrative Resulting Agency Comment Spec In Lab Kulwant Blum MD BLOOD BANK LAB ORDER YUKO Performing Organization Address City/[facility]/ZIP Co de Phone Number [facility] [place] [address] * Antibody screen (12/16/2022 4:05 AM EST) Ab Screen Interp Negative [facility] Expires at 2359 on: 12/19/2022 [facility] Blood 12/16/2022 4:05 AM EST 12/16/2022 4:21 AM EST Narrative Resulting Agency Comment Spec In Lab Kulwant Blum MD BLOOD BANK LAB ORDER YUKO Performing Organization Address City/[facility]/[place] [address] * ABO/Rh Typing (12/16/2022 4:05 AM EST) ABORH Type AB Pos [facility] Blood 12/16/2022 4:05 AM EST 12/16/2022 4:21 AM EST Narrative Resulting Agency Comment Spec In Lab Kulwant lBum MD BLOOD BANK LAB ORDER YUKO Performing Organization Address [facility] Co de Phone Number [facility] [place] [address] * Differential, Automated (12/16/2022 4:05 AM EST) Neutrophil % 57.0 % [facility] Neutrophil Absolute 4.04 1.70 - 6.10 x10(3)/[facility] Lymph % 35.6 % [facility] Lymphocytes Abs 2.5 0.9 - 3.2 x10(3)/[facility] Monocyte % 5.6 % [facility] Monocyte Abs 0.4 0.3 - 0.9 x10(3)/[facility] Eos % 1.1 % [facility] Eosinophils Abs 0.1 0.0 - 0.4 x10(3)/[facility] Basophil % 0.4 % [facility] Baso Absolute 0.0 0.0 - 0.1 x10(3)/[facility] Immature Gran % 0.30 % [facility] Comment: Immature granulocytes(IG's)percentage and absolute count will include metamyelocytes, myelocytes, and promyelocytes. Blood smears from CBCs yielding IG's will be scanned manually for concordance. If this scan disagrees with the automated IG or if promyelocytes are noted, a manual differential will be performed. Immature Gran Absolute 0.02 0.00 - 0.04 x10(3)/mcL [facility] Blood 12/16/2022 4:05 AM EST 12/16/2022 4:20 AM EST Narrative Resulting Agency Comment Spec In Lab Kulwant Blum MD HEMATOLOGY ORDERABLE S [facility] [place] [address] * (ABNORMAL) Hemogram (12/16/2022 4:05 AM EST) White Blood Cell 7.1 4.0 - 9.5 x10(3)/mc L [facility] Red Blood Cell 4.36 4.00 - 5.21 x10(6)/mc L [facility] Hemoglobin 11.6(L) 11.7 - 15.5 g/dL [facility] Hematocrit 34.6(L) 35.7 - 45.8 % [facility] Mean Cell Volume 79.4(L) 82.6 - 94.4 fL [facility] Mean Cell Hemoglobin 26.6(L) 27.1 - 32.0 pg [facility] Mean Cell Hemoglobin Concentration 33.5 31.7 - 35.0 g/dL [facility] Platelet 181 145 - 357 x10(3)/mc L [facility] RDW Standard Deviation 37.3 37.0 - 46.0 fL [facility] RDW coefficient of variation 13.3 11.5 - 14.1 % [facility] Mean Platelet Volume 10.5 7.6 - 12.9 fL [facility] NRBC% auto 0.0 % [facility] NRBC Absolute 0.000 0.000 - 0.000 x10(3)/mc L [facility] Blood 12/16/2022 4:05 AM EST 12/16/2022 4:20 AM EST Narrative Resulting Agency Comment Spec In Lab Kulwant Blum MD HEMATOLOGY ORDERABLE S [facility] [place] [address] documented in this encounter Visit Diagnoses Diagnosis Labor and delivery, indication for care- Primary Unspecified indication for care or intervention related to labor and delivery, unspecified as to episode of care Vacuum-assisted vaginal delivery documented in this encounter Admitting Diagnoses Diagnosis Labor and delivery, indication for care Unspecified indication for care or intervention related to labor and delivery, unspecified as to episode of care documented in this encounter Administered Medications Inactive Administered Medications - up to 3 most recent administrations Medication Order MAR Action Action Date Dose Rate Site acetaminophen (Tylenol) tablet 650 mg 650 mg, Oral, EVERY 6 HOURS PRN, Starting on Sat12/16/22 at 0855, Until Sat12/18/22 at 1355, Pain, Maximum dose of acetaminophen is 4,000 mg from all sources in 24 hours. Both acetaminophen and ibuprofen, if ordered, should be given even when other ordered pain medications are indicated., Routine Given 12/18/2022 11:28 AM EST 650 mg Given 12/18/2022 5:21 AM EST 650 mg Given 12/17/2022 3:11 PM EST 650 mg escitalopram (Lexapro) tablet 10 mg 10 mg, Oral, DAILY, First dose on Sat12/17/22 at 0900, Until Discontinued, Routine Given 12/17/2022 8:56 PM EST 10 mg fentaNYL (pf) (2 mcg/mL), BUpivacaine (pf) 0.1% in sodium chloride 0.9% 250 mL epidural Epidural, Epidural Type: Continuous + PCEA, Continuous Rate: 12 mL/hr, PCEA Dose: 6 mL, PCEA Frequency: Every 20 minutes, 1 Hour Limit: 24 mL/hr, Maximum rate for continuous infusion is 14 mL per hour Maximum intermittent bolus is 12 mL Continuous = basal rate for epidural infusion PCEA (Patient Controlled Epidural Analgesia) = bolus from infusion delivered after patient presses demand button PIEB (Programmed Intermittent Epidural Bolus) = bolus from infusion delivered on a programmed frequency New Bag 12/16/2022 3:16 AM EST 250 mLs ibuprofen (Advil) tablet 600 mg 600 mg, Oral, EVERY 6 HOURS PRN, Starting on Sat12/16/22 at 0856, Until Sat12/18/22 at 1355, Pain, Administer orally with milk or food to minimize GI irritation. Maximum dose of 3,200 mg from all sources in 24 hours Both acetaminophen and ibuprofen, if ordered, should be given even when other ordered pain medications are indicated, Routine Given 12/18/2022 8:58 AM EST 600 mg Given 12/17/2022 9:02 PM EST 600 mg Given 12/17/2022 1:44 PM EST 600 mg lactated Ringers 500 mL IV bolus at 500 mL/hr, Intravenous, ONCE PRN, 1 dose, Starting on 12/16/22 at 0244, Until Sat12/16/22 at 0345, Prior to epidural placement or concerning heart rate pattern or maternal condition. New Bag 12/16/2022 2:45 AM EST 500 mL/hr lactated ringers infusion 100 mL/hr, Intravenous, CONTINUOUS, Starting on 12/16/22 at 0345, Until Sat12/16/22 at 0855, Maximum 125 mL in one hour. New Bag 12/16/2022 6:57 AM EST 100 mL/hr 100 mL/hr New Bag 12/16/2022 3:45 AM EST 100 mL/hr 100 mL/hr ondansetron (pf) (Zofran) (2 mg/mL) injection 4 mg 4 mg, Intravenous, EVERY 8 HOURS PRN, Starting on Sat12/16/22 at 1109, Until 12/18/22 at 1355, Nausea, Routine Given 12/16/2022 11:27 AM EST 4 mg oxytocin (Pitocin) (0.06 units/mL) in sodium chloride 0.9% 500 mL infusion 30 Units (500 mL), Intravenous, Administer over 1 Hours, ONCE PRN, 1 dose, Starting on 12/16/22 at 0244, Until 12/16/22 at 0855, At the discretion of the provider following delivery., . , Routine New Bag 12/16/2022 8:13 AM EST 30 Units polyethylene glycoL (Miralax) packet 17 g 17 g, Oral, DAILY, First dose on 12/16/22 at 0945, Until Discontinued, Routine documented in this encounter Active and Recently Administered Medications Due to Daylight Saving Time, this section may contain times in both EDT and EST. Scheduled Medication Order 12/16/2022 12/17/2022 12/18/2022 escitalopram (Lexapro) tablet 10 mg 10 mg, Oral, DAILY, First dose on 12/17/22 at 0900, Until Discontinued, Routine 2055 (Given - Provider: Alexsandra Montague RN) polyethylene glycoL (Miralax) packet 17 g 17 g, Oral, DAILY, First dose on 12/16/22 at 0945, Until Discontinued, Routine 0945 (Hold - Provider: Qing Grant RN - Reason: Patient/family refused) 0900 (Not Given - Provider: Keena Lam RN - Reason: Patient/family refused) 0858 (Not Given - Provider: Jennifer Minaya RN - Reason: Patient/family refused) Continuous Medication Order 12/16/2022 12/17/2022 12/18/2022 fentaNYL (pf) (2 mcg/mL), BUpivacaine (pf) 0.1% in sodium chloride 0.9% 250 mL epidural (CANCELED)(Linked Group 1) Epidural, Epidural Type: Continuous + PCEA, Continuous Rate: 12 mL/hr, PCEA Dose: 6 mL, PCEA Frequency: Every 20 minutes, 1 Hour Limit: 24 mL/hr, Maximum rate for continuous infusion is 14 mL per hour Maximum intermittent bolus is 12 mL Continuous = basal rate for epidural infusion PCEA (Patient Controlled Epidural Analgesia) = bolus from infusion delivered after patient presses demand button PIEB (Programmed Intermittent Epidural Bolus) = bolus from infusion delivered on a programmed frequency 0316 (New Bag - Provider: Leonel Nolasco RN)0834 (Stopped - Provider: Qing Grant RN) lactated ringers infusion (CANCELED) 100 mL/hr, Intravenous, CONTINUOUS, Starting on 12/16/22 at 0345, Until 12/16/22 at 0855, Maximum 125 mL in one hour. 0345 (New Bag - Provider: Leonel Nolasco RN)0657 (New Bag - Provider: Leonel Nolasco RN)0855 (Stopped - Provider: Qing Grant RN) PRN Medication Order 12/16/2022 12/17/2022 12/18/2022 acetaminophen (Tylenol) tablet 650 mg 650 mg, Oral, EVERY 6 HOURS PRN, Starting on 12/16/22 at 0855, Until 12/18/22 at 1355, Pain, Maximum dose of acetaminophen is 4,000 mg from all sources in 24 hours. Both acetaminophen and ibuprofen, if ordered, should be given even when other ordered pain medications are indicated., Routine 1555 (Given - Provider: Keena Lam RN)2304 (Given - Provider: Marisol Durbin, [place]) 0656 (Given - Provider: Marisol Durbin, [place])1511 (Given - Provider: Keena Lam RN) 0521 (Given - Provider: Alexsandra Montague, RN)1128 (Given - Provider: Jennifer Minaya, RN) ibuprofen (Advil) tablet 600 mg 600 mg, Oral, EVERY 6 HOURS PRN, Starting on 12/16/22 at 0856, Until Sat12/18/22 at 1355, Pain, Administer orally with milk or food to minimize GI irritation. Maximum dose of 3,200 mg from all sources in 24 hours Both acetaminophen and ibuprofen, if ordered, should be given even when other ordered pain medications are indicated, Routine 1127 (Discarded - Provider: Qing Grant RN)1138 (Given - Provider: Qing Grant RN)1834 (Given - Provider: Keena Lam RN) 0204 (Given - Provider: Marisol Durbin RN)0914 (Given - Provider: Keena Lam RN)1344 (Given - Provider: Kenia Duffy RN)2102 (Given - Provider: Alexsandra Montague, [place]) 0858 (Given - Provider: Jennifer Minaya, [place]) lactated Ringers 500 mL IV bolus (COMPLETED) at 500 mL/hr, Intravenous, ONCE PRN, 1 dose, Starting on Sat12/16/22 at 0244, Until Sat12/16/22 at 0345, Prior to epidural placement or concerning heart rate pattern or maternal condition. 0245 (New Bag - Provider: Leonel Nolasco, [place])0345 (Stopped - Provider: Leonel Nolasco, [place]) ondansetron (pf) (Zofran) (2 mg/mL) injection 4 mg 4 mg, Intravenous, EVERY 8 HOURS PRN, Starting on 12/16/22 at 1109, Until Sat12/18/22 at 1355, Nausea, Routine 1127 (Given - Provider: Qing Grant RN) oxytocin (Pitocin) (0.06 units/mL) in sodium chloride 0.9% 500 mL infusion (CANCELED) 30 Units (500 mL), Intravenous, Administer over 1 Hours, ONCE PRN, 1 dose, Starting on 12/16/22 at 0244, Until 12/16/22 at 0855, At the discretion of the provider following delivery., . , Routine 0813 (New Bag - Provider: Qing Grant RN)0855 (Stopped - Provider: Qing Grant RN - Comment: Time automatically adjusted from order being discontinued) Linked Groups Order Group 1: fentaNYL (pf) (2 mcg/mL), BUpivacaine (pf) 0.1% in sodium chloride 0.9% 250 mL epidural (CANCELED)Jump to med Epidural, Epidural Type: Continuous + PCEA, Continuous Rate: 12 mL/hr, PCEA Dose: 6 mL, PCEA Frequency: Every 20 minutes, 1 Hour Limit: 24 mL/hr, Maximum rate for continuous infusion is 14 mL per hour Maximum intermittent bolus is 12 mL Continuous = basal rate for epidural infusion PCEA (Patient Controlled Epidural Analgesia) = bolus from infusion delivered after patient presses demand button PIEB (Programmed Intermittent Epidural Bolus) = bolus from infusion delivered on a programmed frequency And Neuraxial shift total and Settings verification (CANCELED) Epidural, 2 Times Daily- Neuraxial Shift Total, First dose on 12/16/22 at 0600, Until Discontinued And Neuraxial (Epidural) martinez (CANCELED) Epidural, CONTINUOUS PRN, Starting on 12/16/22 at 0313, Until 12/16/22 at 0855 documented in this encounter Care Teams Coding Quality Analyst Relationship Specialty Start Date End Date Sruthi Zurita, MANAGER OF OPERATIONS [place] [place] [address] PCP - General Family Medicine 07/30/22 documented as of this encounter
--- OUTSIDE RECORDS SUMMARY | 2023-12-26 22:56 | XMS_ITS | Encounter Summary ---
Author Organization [facility] [place] [address] Care Team Providers Care Labor Relations Representative Name Role Phone Sruthi Zurita APRN Primary Care Provider [phone] Reason for Visit * Auth/Cert (Routine) Specialty Diagnoses / Procedures Referred By Contac t Referred To Contact Diagnoses Labor and delivery, indication for care Procedures VAGINAL DELIVERY Rosa Isela Montemayor MD [facility] [address] OBSTET[place]ICS [place] [address] [facility] Referral ID Status Reason Start Date Expiration Date Visits Re quested Visits Authorized [id number] 1 1 Encounter Details Date Type Department Care Team (Late st Contact Info) Description 12/16/2022 3:11 AM EST Anesthesia [place] [address] Tomas Watts MD [facility] [place] [address] Anesthesia Record Procedure Summary Procedure Name Responsible Anesthesiologist Anesthesia Start Time Anesthesia Stop Time Labor Analgesia (proc) Events Date Time Event Comment 12/16/2022 0300 AN Verify 0311 Labor Neuraxial Meds * Agents No agents on file. * Blood No blood administrations on file. Lines, Drains, and Airways Type Details Placement Removal Supraglottic Mask Ventilation: Ea sy (1); LMA Type: iGel; LMA Size: 3; Inserted by: KERRIE Villeda 01/18/23 1027 by Jennifer Headley CRNA Incision 01/18/23; 1033; Righ t, anterior; wrist 01/18/23 1033 by Aster Webb, [place] Incision 01/18/23; 1044; Left , anterior; wrist 01/18/23 1044 by Aster Webb RN Epidural 12/16/22; 0300 (jyotsna jain via procedure documentation); Taken out by anesthesia; 12/16/22; 1600 12/16/22 0300 by Tomas Watts MD 12/16/22 1600 by Keena Lam RN documented in this encounter Social History Tobacco Use Types Packs/Day Years [...] place to sleep or slept in a custodial (including now)? No 11/02/2022 Sex and Gender Information Value Date Recorded Sex Assigned at Not on file Gender Identity Not on file Sexual Orientation Not on file documented as of this encounter OR Notes * Anesthesia Postprocedure Evaluation - Richard Juarez MD - 12/18/2022 10:50 AM EST Department of Anesthesiology Post-procedure Note Patient: Thao Garzon Procedure Summary Date: 12/16/22 Room / Location: Anesthesia Start: Anesthesia Stop: Procedure: Labor Analgesia (proc) Diagnosis: Scheduled Providers: Responsible Provider: Anesthesia Type: epidural ASA Status: 2 All Anesthesia Providers: No anesthesia staff entered. Vitals Value Taken Time BP Temp Pulse Resp SpO2 Pain Level Patient Location: Floor Level of Consciousness: Awake and Alert Pain Management: Satisfactory Analgesia PONV: None Cardiovascular Status: At Baseline and Hemodynamically Stable Respiratory Status: At Baseline and Room Air Postoperative Fluid Status: Intravascular EUvolemia Possible Anesthetic Complications: NONE apparent at time of evaluation Final Primary Anesthesia Type: Epidural (The anesthetic type performed was the same as planned.) Comments: No complaints today. Denies headache or residual motor / sensory deficits. Ambulating andvoiding without difficulty. Insertion site without warmth, erythema, tenderness, induration, fluctuance or discharge. Richard Juarez MD * Anesthesia Preprocedure Evaluation - Tomas Watts MD - 12/16/2022 3:14 AM EST Pre-Anesthesia Evaluation for: Thao Garzon a 32 y.o. female. * No procedures listed * Patient Active Problem List Diagnosis Date Noted ??? *Labor and delivery, indication for care 12/16/2022 ??? Encounter for supervision of other normal , third trimester 11/02/2022 ??? Raynaud's syndrome 03/04/2018 ??? Dyspareunia in female 01/11/2017 No past medical history on file. No past surgical history on file. Social History Tobacco Use ??? Smoking status: Never ??? Smokeless tobacco: Never Substance Use Topics ??? Alcohol use: Not on file Social History Substance and Sexual Activity Drug Use Not on file Allergies Allergen Reactions ??? Cephalosporins Rash NA Rash ??? Grass Pollen Other (See Comments) Seasonal allergies, allergic rhinitis ??? Sulfa (Sulfonamide Antibiotics) Rash Rash Other reaction(s): Rash NA Rash ??? Sulfasalazine Rash Medications: MAR and/or home medications have been reviewed. Physical Exam: Preprocedure Vitals Current as of 12/16/22 0314 No BP, pulse, respiration, SpO2, or temperature recorded. Height: 157.5 cm (5' 2) (11/02/22) Weight: 62.3 kg (137 lb 4.8 oz) (12/14/22) BMI: 25.11 IBW: 50.1 kg (110 lb 7.8 oz) Airway Assessment: Mallampati: I TM distance: >3 FB Neck ROM: full Cardiovascular Assessment: system normal Pulmonary Assessment: Dental Assessment: - normal exam Misc Assessment: Last Filed Perioperative Cognitive Screening None Anesthesia Plan: ASA 2 epidural, 32 yo female 40 wks in labor requesting labor epidural. Informed Consent: Anesthesia Screening * Anesthesia Procedure Notes - Tomas Watts MD - 12/16/2022 3:12 AM EST Associated Order(s): Neuraxial for Labor Only Procedure: Labor Analgesia Neuraxial Block Labor Analgesia Type: Epidural The patient was greeted. The sedation plan, its benefits, risks and alternatives were discussed with the patient. The patient has consented to the procedure. The medical history and chart were reviewed. The timeout was performed. Start time: 12/16/2022 3:00 AM End time: 12/16/2022 3:12 AM Patient Location: [facility] Patient Prep Position: Sitting Prep: Patient Draped, Hand Hygiene, Hat, Mask, Sterile Gloves and Povidone-iodine Injection technique: continuous Procedure Technique Level of needle insertion: L3-4 Needle approach: midline Needle Type: Tuohy Gauge: 17 Needle length: 3.5 in Needle insertion depth when VIVIENNE achieved: 4 cm Technique for Loss of Resistance: VIVIENNE saline A 19G Flex-Tip epidural catheter was inserted into the space Catheter at skin depth: 9 cm Dressing/Secured with: Chlorhexidine Tegaderm Number of attempts: 1 Test dose Lidocaine 1.5% w/Epinephrine 1:2000,000 3mL Events/Notes Events: None Performed by: Resident/PRICING ACTUARY: Richard Juarez MD Attending Physician: Tomas Watts MD Authorized by: Tomas Watts MD ~~~~~~~~~~~~~~~~~~~~~~~~~~~~~~~~~~~~~~~~~~~~~~~~~~~~~~~~~~~~ documented in this encounter Plan of Treatment Not on file documented as of this encounter Procedures Procedure Name Priority Date/Time Associated Diagnosis Comments [id number] Routine 12/16/2022 3:12 AM EST documented in this encounter Results * [id number] (12/16/2022 3:12 AM EST) Narrative Tomas Watts MD - 12/16/2022 3:12 AM EST Tomas Watts MD ? 12/16/2022 ??3:12 AM Procedure: ?? Labor Analgesia Neuraxial Block Labor Analgesia Type: Epidural The patient was greeted. The sedation plan, its benefits, risks and alternatives were discussed with the patient. ??The patient has consented to the procedure. ??The medical history and chart were reviewed. ??The timeout was performed. Start time: 12/16/2022 3:00 AM End time: 12/16/2022 3:12 AM Patient Location: [facility] Patient Prep Position: Sitting Prep: Patient Draped, Hand Hygiene, Hat, Mask, Sterile Gloves and Povidone-iodine Injection technique: continuous Procedure Technique Level of needle insertion: L3-4 Needle approach: midline Needle Type: Tuohy Gauge: 17 Needle length: 3.5 in Needle insertion depth when VIVIENNE achieved: 4 cm Technique for Loss of Resistance: VIVIENNE saline A 19G Flex-Tip epidural catheter was inserted into the space Catheter at skin depth: 9 cm Dressing/Secured with: Chlorhexidine Tegaderm Number of attempts: 1 Test dose Lidocaine 1.5% w/Epinephrine 1:2000,000 3mL Events/Notes Events: ??None Performed by: ?? Resident/PRICING ACTUARY: ? Richard Juarez MD ?? Attending Physician: ? Tomsa Watts MD Authorized by: Tomas Watts MD ?? ~~~~~~~~~~~~~~~~~~~~~~~~~~~~~~~~~~~~~~~~~~~~~~~~~~~~~~~~~~~~ Tomas Watts MD [employer] [facility] documented in this encounter Visit Diagnoses Not on filedocumented in this encounter Care Teams Labor Relations Representative Relationship Specialty Start Date End Date Sruthi Zurita APRN [address] [place] [address] PCP - General Family Medicine 07/30/22 documented as of this encounter
--- OUTSIDE RECORDS SUMMARY | 2023-12-26 22:56 | XMS_ITS | Encounter Summary ---
Author Organization [facility] Address [facility] [place] [address] Care Team Providers Care Bottling Machine Operator Name Role Phone Sruthi Zurita APRN Primary Care Provider [phone] Reason for Visit * Reason Comments Post Op 01/18/2023 [facility] Encounter Details Date Type Department Care Team (Late st Contact Info) Description 01/30/2023 1:40 PM EST Office Visit [place] [id number] Tamiko Dalton PA [facility] [place] [address] S/P bilateral endoscopic carpal tunnel release 01/18/23 Dr. Stephen Social History Tobacco Use Types Packs/Day Years Used Date Smoking Tobacco: Never Smokeless Tobacco: Never Alcohol Use Standard Drinks/Week Comments Not Asked 0 (1 standard drink = 0.6 oz pur e alcohol) 2 - 4 per week [facility] Utilities Answer Date Recorded In the past 12 months has [employer], oil, or water [employer] threatened to shut off services in your [...] money to buy more. Never true 01/31/20 23 Within the past 12 months, t [...] slept in a halfway (including now)? No 01/30/2023 IPV Inpatient Questions Answer Date Recorded Does [...] Sign Reading Time Taken Comments Blood Pressure - - Pulse - - Temperature - - Respiratory Rate - - Oxygen Saturation - - Inhaled Oxygen Concentration - - Weight 52.2 kg (115 lb) 01/30/2023 1:47 PM EST Height 157.5 cm (5' 2) 01/30/2023 1:47 PM EST Body Mass Index 21.03 01/30/2023 1:47 PM EST documented in this encounter Progress Notes * Tamiko Dalton PA - 01/30/2023 1:40 PM EST PATIENT NAME: Thao Garzon AGE: 32 y.o. MR#: [id number] DATE OF VISIT: 01/30/2023 DATE OF SURGERY: 01/18/2023 SURGERY DESCRIPTION: Endoscopic bilateral carpal tunnel decompressions SURGEON: Dr. Stephen CHIEF COMPLAINT: 12 days S/P above procedure HISTORY OF PRESENT ILLNESS: Ms. Garzon is a 32 y.o. female who presents 12 days s/p the above procedures for office follow up. She has been doing well since surgery. She is not having much pain at this point. She has noticed some soreness over the volar aspect of her left forearm, but this has beentolerable. Her carpal tunnel symptoms have completely resolved. Ms. Garzon denies fever or chills. PHYSICAL EXAM: Ms. Garzon is a 32 y.o. female who is in no apparent distress, alert, and cooperative. Inspection: Healing surgical incisions without evidence of infection ROM/Strength: She is able to flex and extend all of her digits without triggering or significant stiffness. Wrist range of motion remains intact. She has some slight discomfort over the volar aspect of the left wrist over the flexor tendons. She also has some mild pillar pain and repair tech weakness bilat erally. Neurovascular: She no longer has any numbness or tingling in the median distribution bilaterally. Hands are well-perfused SURVEY RESPONSES: 01/30/2023 [facility] Surgical Postop Visit PROMIS-10 General Health Very Good PROMIS-10 Quality of Life Excellent PROMIS-10 Physical Health Very Good PROMIS-10 Mental Health Very Good PROMIS-10 Social Activity Very Good PROMIS-10 Everyday Activities Mostly PROMIS-10 Pain 3 PROMIS-10 Fatigue Mild PROMIS-10 Social Roles Very Good PROMIS-10 Anxious or Depressed Rarely PROMIS PHYSICAL HEALTH SCORE 50.8 PROMIS MENTAL HEALTH SCORE 56 Problems with surgical incision/wound after surgery No Gone to ER since knee surgery No Admitted to hospital since recent ortho surgery No Additional surgery on same body part No Satisfaction with Treatment Satisfied Choose Same Treatment Again Definitely yes ASSESSMENT: 12 days s/p above procedure PLAN: The patient's sutures were removed today and Steri-strips were applied without complication. Now that her suture has been removed, she may continue with ROM and gradual return to activity. She may shower and get the incision wet. She was instructed to perform scar massage over the incision. If the patient feels that she is having difficulty with pain or stiffness, we will refer her for formal hand therapy as needed. We discussed that pain over the palm and forearm and repair tech weakness are common after carpal tunnel surgery and should continue to improve over time. If this continues to persist we can arrange for hand therapy as needed. Overall, she is very pleased with her outcome. The patient understands to contact us if she has any other questions or concerns. The patient will follow up as needed. The above documentation was completed using [employer] voice recognition software. documented in this encounter Plan of Treatment Not on file documented as of this encounter Visit Diagnoses Diagnosis S/P bilateral endoscopic carpal tunnel release 01/18/23 Dr. Stephen Other postprocedural status documented in this encounter Care Teams Bottling Machine Operator Relationship Specialty Start Date End Date Sruthi Zurita APRN [address] [place] [address] PCP - General Family Medicine 07/30/22 documented as of this encounter
--- OUTSIDE RECORDS SUMMARY | 2023-12-26 22:56 | XMS_ITS | Encounter Summary ---
Author Organization [facility] Address [facility] [place] [address] Care Team Providers Care Apparel Designer Name Role Phone Sruthi Zurita APRN Primary Care Provider [phone] Encounter Details Date Type Department Care Team (Late st Contact Info) Description 12/31/2022 [place] [address] Fallon Mcclelland PA [facility] [place] [address] Bilateral hand numbness Social History Tobacco Use Types Packs/Day Years [...] place to sleep or slept in a prison (including now)? No 11/02/2022 Sex and Gender Information Value Date Recorded Sex Assigned at Not on file Gender Identity Not on file Sexual Orientation Not on file documented as of this encounter Plan of Treatment Not on file documented as of this encounter Visit Diagnoses Diagnosis Bilateral hand numbness Disturbance of skin sensation documented in this encounter Care Teams Apparel Designer Relationship Specialty Start Date End Date Sruthi Zurita [place] [address] PCP - General Family Medicine 07/30/22 documented as of this encounter
--- OUTSIDE RECORDS SUMMARY | 2023-12-26 22:56 | XMS_ITS | Encounter Summary ---
Author Organization [facility] Address [facility] [place] [address] Care Team Providers Care Smudger Name Role Phone Sruthi Zurita APRN Primary Care Provider [phone] Reason for Referral * Consultation (Routine) - Closed Specialty Diagnoses / Procedures Referred By Contac t Referred To Contact Orthopaedics Diagnoses Carpal tunnel syndrome, bilateral Mario Hayward MD [facility] OBSTET[place] [address] [facility] [address] [place] [address] Referral ID Status Reason Start Date Expiration Date V isits Requested Visits Authorized [id number] Closed Consult, Test & Treat 12/25/2022 12/25/2023 1 1 Encounter Details Date Type Department Care Team (Late st Contact Info) Description 12/25/2022 Orders Only Obstetrics [place] [phone] Mario Hayward MD [facility] OBSTETRICS [place] [address] Carpal tunnel syndrome, bilateral Social History Tobacco Use Types Packs/Day Years [...] place to sleep or slept in a long-term (including now)? No 11/02/2022 Sex and Gender Information Value Date Recorded Sex Assigned at Not on file Gender Identity Not on file Sexual Orientation Not on file documented as of this encounter Plan of Treatment Scheduled Referrals Name Type Priority Associated Diagnoses Orde r Schedule Referral to Hand Clinic Outpatient Referral Routine Carpal tunnel syndrome, bilateral Ordered: 12/25/2022 documented as of this encounter Visit Diagnoses Diagnosis Carpal tunnel syndrome, bilateral Carpal tunnel syndrome documented in this encounter Care Teams Smudger Relationship Specialty Start Date End Date Sruthi Zurita [place] [address] PCP - General Family Medicine 07/30/22 documented as of this encounter
--- OUTSIDE RECORDS SUMMARY | 2023-12-26 22:56 | XMS_ITS | Encounter Summary ---
[place] [address] Care Team Providers Care Buffing Wheel Presser Name Role Phone Sruthi Zurita APRN Primary Care Provider [phone] Reason for Visit * Auth/Cert (Routine) Specialty Diagnoses / Procedures Referred By Lane whitehead Referred To Contact Diagnoses Carpal tunnel syndrome, bilateral Bilateral hand numbness carpal tunnel syndrome bilateral Procedures PRO ENDOSCOPIC WRIST SURG RELEASE TRANSVERSE CARPAL LIGAMENT ENDOSCOPY WRIST W/ RELEASE TRANSVERSE CARPAL LIGAMENT (WRVU 6.39) Christopher Stephen MD [facility] [place] [address] [facility] Referral ID Status Reason Start Date Expiration Date Visits Re quested Visits Authorized [id number] 1 1 Encounter Details Date Type Department Care Team (Late st Contact Info) Description 01/18/2023 10:21 AM EST Anesthesia Event [place] [address] David Le MD [facility] [place] [address] Milton Cardozo MD [facility] [place] [address] Anesthesia Record Procedure Summary Procedure Name Responsible Anesthesiologist Anesthesia Start Time Anesthesia Stop Time ENDOSCOPY WRIST W/ RELEASE TRANSVERSE CARPAL LIGAMENT (WRVU 6.39) (Bilateral: Wrist) David Le MD 01/18/23 1021 01/18/23 1101 Events Date Time Event Comment 01/18/2023 0956 1021 AN Verify 1021 Start 1021 An Start Data 1026 An Induction 1027 An Intubation 1029 Anesthesia Ready 1034 Procedure Start 1057 an stop data 1101 Recovery or ICU Handoff Bee ent care was transferred to the destination unit staff after review of the patient's medical history, current anesthetic/surgical status and plan, according to the Provider Handoff Checklist. 1101 Stop Meds Name Total Midazolam 2 mg fentaNYL 50 mcg IV Lidocaine 50 mg Propofol 250 mg Propofol INF 114.84 mg Dexmedetomidine 4 mcg Dexamethasone 8 mg Ondansetron 8 mg ePHEDrine 15 mg lactated ringers infusion 0 mL * Agents Name O2 * Blood No blood administrations on file. Lines, Drains, and Airways Type Details Placement Removal Supraglottic Mask Ventilation: Angel duncan (1); LMA Type: iGel; LMA Size: 3; Inserted by: KERRIE Villeda 01/18/23 1027 by Jennifer Headley CRNA Incision 01/18/23; 1033; Righ t, anterior; wrist 01/18/23 1033 by Aster Webb, [place] Incision 01/18/23; 1044; Left , anterior; wrist 01/18/23 1044 by Aster Webb RN PIV 01/18/23; 1017; prps-glt-krejvh catheter system; 22 gauge; great saphenous vein (medial side of leg), left; Dr. Le; distraction, tolerated well, appears comfortable, intradermal injection; 01/18/23; 1149 01/18/23 1017 by Lorena Galeas V RN 01/18/23 1149 by Hazel Quiroga, RN documented in this encounter Social History [...] in a half-way (including now)? No 11/02/2022 DH IPV Inpatient [...] OR Notes * Anesthesia Postprocedure Evaluation - David Le MD - 01/18/2023 1:50 PM EST Department of Anesthesiology Post-procedure Note Patient: Thao Garzon Procedure Summary Date: 01/18/23 Room / Location: [facility] [place] OR [address] [place] [address] OSC Anesthesia Start: 1021 Anesthesia Stop: 110 Procedure: ENDOSCOPY WRIST W/ RELEASE TRANSVERSE CARPAL LIGAMENT (WRVU 6.39) (Bilateral: Wrist) Diagnosis: Bilateral hand numbness (carpal tunnel syndrome bilateral) Surgeons: Christopher Stephen MD Responsible Provider: David Le MD Anesthesia Type: general ASA Status: 2 All Anesthesia Providers: Anesthesiologist: David Le MD NURSE RESEARCHER: Jennifer Headley CRNA Vitals Value Taken Time BP 135/68 01/18/23 1145 Temp 36 ??C (96.8 ??F) 01/18/23 1059 Pulse 66 01/18/23 1146 Resp 16 01/18/23 1145 SpO2 95 % 01/18/23 1145 Pain Level 0 01/18/23 1145 Vitals shown include unfiled device data. Patient Location: PACU/[facility] Level of Consciousness: Awake and Alert Pain Management: Satisfactory Analgesia PONV: None Cardiovascular Status: At Baseline and Hemodynamically Stable Respiratory Status: At Baseline and Room Air Postoperative Fluid Status: Intravascular EUvolemia Possible Anesthetic Complications: NONE apparent at time of evaluation Final Primary Anesthesia Type: General (The anesthetic type performed was the same as planned.) Comments: * Anesthesia Preprocedure Evaluation - David Le MD - 01/18/2023 9:54 AM EST Pre-Anesthesia Evaluation for: Thao Garzon a 32 y.o. female. Procedure(s): ENDOSCOPY WRIST W/ RELEASE TRANSVERSE CARPAL LIGAMENT (WRVU 6.39) Patient Active Problem List Diagnosis Date Noted S/P bilateral endoscopic carpal tunnel release 01/18/23 Dr. Stephen 01/18/2023 Bilateral hand numbness 12/27/2022 Labor and delivery, indication for care 12/16/2022 Encounter for supervision of other normal , third trimester 11/02/2022 Raynaud's syndrome 03/04/2018 Dyspareunia in female 01/11/2017 History reviewed. No pertinent past medical history. History reviewed. No pertinent surgical history. Social History Tobacco Use Smoking status: Never Smokeless tobacco: Never Substance Use Topics Alcohol use: Not on file Social History Substance and Sexual Activity Drug Use Not on file Allergies Allergen Reactions Cephalosporins Rash NA Rash Grass Pollen Other (See Comments) Seasonal allergies, allergic rhinitis Sulfa (Sulfonamide Antibiotics) Rash Rash Other reaction(s): Rash NA Rash Sulfasalazine Rash Medications: MAR and/or home medications have been reviewed. Physical Exam: Preprocedure Vitals Current as of 01/18/23 0954 BP: 148/66 Pulse: 83 Resp: 18 SpO2: 97 Temp: 37 ??C (98.6 ??F) Height: 157.5 cm (5' 2) (01/18/23) Weight: 52.2 kg (115 lb) (01/18/23) BMI: 21.03 IBW: 50.1 kg (110 lb 7.8 oz) Last edited 01/18/23 09 by CL Airway Assessment: Mallampati: I TM distance: >3 FB Neck ROM: full Cardiovascular Assessment: system normal Pulmonary Assessment: unlabored breathing Dental Assessment: - normal exam Misc Assessment: IV access: Peripheral line Last Filed Perioperative Cognitive Screening None Anesthesia Plan: ASA 2 general, with a(n) intravenous induction Thao Garzon is a 32 y.o. female who presents for bilateral carpal tunnel release PMH: sean. Anesth Hx: recent labor epidural for (12/2022). METS > 4, denies card/pulm hx or symptoms. Labs: 12/16/22 11/02/22 0405 1118 WBC 7.1 9.8* HGB 11.6* 12.2 HCT 34.6* 36.4 PLATELET 181 216 No results for input(s): NA, K, CL, CO2, BUN, CREATININE in the last 7068 hours. No results for input(s): AST, ALT, ALKPHOS, BILITOT, BILIDIR in the last 7068 hours. No results for input(s): PT, INR, PTT in the last 168 hours. Lab Results Component Value Date ABORH AB Pos 12/16/2022 Pt is appropriately NPO Anesthetic Plan GA with LMA Standard ASA monitors, IV access Region - Other Informed Consent: Anesthetic plan and risks discussed with patient. Plan discussed with attending. Anesthesia Screening documented in this encounter Plan of Treatment Not on file documented as of this encounter Visit Diagnoses Not on filedocumented in this encounter Administered Medications Inactive Administered Medications - up to 3 most recent administrations Medication Order MAR Action Action Date Dose Rate Site dexAMETHasone (Decadron) injection Intravenous, PRN, Starting on Sat01/18/23 at 1029, Until Sat01/18/23 at 1103, Anesthesia Intra-op, Routine Given 01/18/2023 10:29 AM EST 8 mg dexmedeTOMIDine (Precedex) (4 mcg/mL) bolus injection (Anesthsia) Intravenous, PRN, Starting on Sat01/18/23 at 1036, Until Sat01/18/23 at 1103, Anesthesia Intra-op, Routine Given 01/18/2023 10:36 AM EST 4 mcg ePHEDrine sulfate (5 mg/mL) multi-dose injection Intravenous, PRN, Starting on Sat01/18/23 at 1040, Until Sat01/18/23 at 1103, Anesthesia Intra-op, Routine Given 01/18/2023 10:41 AM EST 5 mg Given 01/18/2023 10:40 AM EST 10 mg fentaNYL (pf) (50 mcg/mL) multi-dose injection Intravenous, PRN, Starting on Sat01/18/23 at 1034, Until Sat01/18/23 at 1103, Anesthesia Intra-op, Routine Given 01/18/2023 10:36 AM EST 25 mcg Given 01/18/2023 10:34 AM EST 25 mcg lactated ringers infusion 1,000 mL, at 100 mL/hr, Intravenous, CONTINUOUS, Starting on Sat01/18/23 at 1015, Until Sat01/18/23 at 1152, Day of Surgery (Day of Procedure) Restarted 01/18/2023 10:21 AM EST New Bag 01/18/2023 10:17 AM EST 1,000 mLs 100 mL/hr lidocaine (pf) (Xylocaine) (20 mg/mL) 2% injection syringe Intravenous, PRN, Starting on Sat01/18/23 at 1026, Until Sat01/18/23 at 1103, Anesthesia Intra-op, Routine Given 01/18/2023 10:26 AM EST 50 mg midazolam (pf) (Versed) (1 mg/mL) multi-dose injection Intravenous, PRN, Starting on Sat01/18/23 at 1025, Until Sat01/18/23 at 1103, Anesthesia Intra-op, Routine Given 01/18/2023 10:25 AM EST 2 mg ondansetron (pf) (Zofran) (2 mg/mL) injection Intravenous, PRN, Starting on Sat01/18/23 at 1029, Until Sat01/18/23 at 1103, Anesthesia Intra-op, Routine Given 01/18/2023 10:44 AM EST 4 mg Given 01/18/2023 10:29 AM EST 4 mg propofoL (Diprivan) (10 mg/mL) infusion Intravenous, CONTINUOUS PRN, Starting on Sat01/18/23 at 1029, Until Sat01/18/23 at 1103, Anesthesia Intra-op, Routine Rate/Dose Change 01/18/2023 10:41 AM EST 100 mcg/kg/min 31.32 mL/hr Rate/Dose Change 01/18/2023 10:34 AM EST 200 mcg/kg/min 62 .64 mL/hr New Bag 01/18/2023 10:29 AM EST 100 mcg/kg/min 31.32 mL /hr propofoL (Diprivan) 10 mg/mL bolus injection (Anesthesia) Intravenous, PRN, Starting on Sat01/18/23 at 1026, Until Sat01/18/23 at 1103, Anesthesia Intra-op Given 01/18/2023 10:34 AM EST 50 mg Given 01/18/2023 10:26 AM EST 200 mg documented in this encounter Care Teams Buffing Wheel Presser Relationship Specialty Start Date End Date Sruthi Zurita, MEDICAL RECORDS ANALYST [place] [address] PCP - General Family Medicine 07/30/22 documented as of this encounter
--- OUTSIDE RECORDS SUMMARY | 2023-12-26 22:56 | XMS_ITS | Clinical Summary ---
Author Organization [facility] Address [facility] [place] [address] Care Team Providers Care Production Zone Leader Name Role Phone Sruthi Zurita APRN Primary Care Provider [phone] Allergies Active Allergy Reactions Criticality Noted Date Comments Cephalosporins Rash Low 01/23/2016 NA Rash Grass Pollen Other (See Comments) Low 03/04/2018 Seasonal allergies, allergic rhinitis Sulfa (Sulfonamide Antibiotics) Rash Low 01/23/2016 Rash Other reaction(s): Rash NA Rash Sulfasalazine Rash Low 02/14/2015 Medications Medication Sig Dispensed Refills Start Date End Date Status escitalopram (Lexapro) 10 mg tablet Take 10 mg by mouth daily. 10/12/2022 Active vit/iron fum/folic ac ( 1+1 ORAL) Take by mouth. A ctive acetaminophen (Tylenol) 325 mg tablet Take 2 tablets by mouth every 6 hours as needed for Pain. 12/18/2022 Active Additional Information Patient not taking.Reported on 01/30/2023 ibuprofen (Advil) 600 mg tablet Take 1 tablet by mouth every 6 hours as needed for Pain. 12/18/2022 Active etonogestreL-ethinyl estradioL (NuvaRing) 0.12-0.015 mg/24 hr Ring Insert vaginally and leave in place for 3 consecutive weeks, then remove for 1 week. 1 each 12 01/30/2023 Active Active Problems Problem Noted Date Diagnosed Date S/P bilateral endoscopic car pal tunnel release 01/18/23 Dr. Stephen 01/18/2023 Bilateral hand numbness 12/27/2022 Labor and delivery, indication for care 12/17/19 Raynaud's syndrome 03/04/2018 Dyspareunia in female 01/11/2017 Overview (07/30/2022): Overview: Resolved Problems Problem Noted Date Diagnosed Date Resolved Date Encounter for supervision of other normal , third trimester 11/02/2022 02/17/2023 Immunizations Name Administration Dates Next Due Covid-19 Monovalent (Moderna Spikevax) 12yrs+ (2150-2323) 03/15/2020,02/10/2020 HPV, Quadrivalent (Gardasil) 08/02/2014,01/30/20 14,12/22/2013 Hepatitis B Pediatric/Adoles cant (Engerix-B, Recombivax) 05/26/1998,05/18/1997,03/03/1996 Hib PRP-OMP Conjugate (PedvaxHIB) 10/17/1989 Hib, Unspecified Formulation 10/17/1989 Influenza Unspecified Formulation 11/16/2016 MMR Vaccine LIVE 05/18/1997,10/17/1989 Meningococcal ACWY Polysacch aride Conjugate (MenQuadfi) 01/07/2007 Meningococcal ACWY Polysacch aride Conjugate (Menactra) 01/07/2007 Polio Inactivated (IPOL) 08/18/1993,05/1988,1988,08/30 Td Adult, Unspecified Formulation 05/18/1997 Tdap (Adacel, Boostrix) 06/30/2007 Tuberculin Skin Test, PPD 04/25/2016,04/21/2016 Social History Tobacco Use Types Packs/Day Years Used Date Smoking Tobacco: Never Smokeless Tobacco: Never Tobacco Cessation:Counseling Given: Not Answered Alcohol Use Standard Drinks/Week Comments Not Asked 0 (1 standard drink = 0.6 oz pur e alcohol) 2 - 4 per week [facility] Utilities Answer Date Recorded In the past 12 months has e [employer], gas, oil, or water [employer] threatened to shut off services in your [...] on file Sexual Orientation Not on file Last Filed Vital Signs Vital Sign Reading [...] Mass Index 21.91 01/30/2023 2:34 PM EST Plan of Treatment Health Maintenance Due Date Last Done Comments HIV screen 2006 Hepatitis C Screening 2006 Tetanus/Diphtheria/Pertussis Vaccines (3 - Td or Tdap) 06/29/2017 06/30/2007, 05/18/1997 HPV test 2018 PAP Smear 2018 Covid-19 Vaccine (3 - 2023-2 5 season) 2023 03/15/2020, 02/10/2020 Influenza (Flu) vaccine (1 o f 1 - Influenza standard series) 10/13/2023 11/16/2016 Hepatitis B vaccine (0-59 yrs) Completed 0 05/26/1998, 05/18/1997, 03/03/1996 HPV vaccine Completed 08/02/2014, 01/11, 12/22/2013 Advance Directives * Attempt Cardiopulmonary Resuscitation - Inpatient (Latest Code Status on File) Date Activated Date Inactivated Comments 12/16/2022 11:14 AM 12/18/2022 2:00 PM Question Answer Comments Code Status decision made by: Patient * Attempt Cardiopulmonary Resuscitation - Inpatient Date Activated Date Inactivated Comments 12/16/2022 2:45 AM 12/16/2022 8:55 AM Question Answer Comments Code Status decision made by: Patient Care Teams Production Zone Leader Relationship Specialty Start Date End Date Sruthi Zurita, SEALING MACHINE OPERATOR [address] [place] [address] PCP - General Family Medicine 07/30/22
--- OUTSIDE RECORDS SUMMARY | 2023-12-26 22:56 | XMS_ITS | Encounter Summary ---
Author Organization [facility] Address [facility] [place] [address] Care Team Providers Care Grant Specialist Name Role Phone Sruthi Zurita APRN Primary Care Provider [phone] Encounter Details Date Type Department Care Team (Late st Contact Info) Description 12/16/2022 Telephone Obstetrics [place] [address] Kulwant Blum MD [facility] DR OBSTETRICS & [place] [address] Social History Tobacco Use Types Packs/Day Years [...] place to sleep or slept in a chcf (including now)? No 11/02/2022 Sex and Gender Information Value Date Recorded Sex Assigned at Not on file Gender Identity Not on file Sexual Orientation Not on file documented as of this encounter Miscellaneous Notes * Telephone Encounter - Kulwant Blum MD - 12/16/2022 2:06 AM EST Telephone Phone Note Thao Garzon is a 32 y.o. at 40w1d who calls with concern that she has broken her water. Has felt a gush a fluid mixed in with some blood. Is 1 minute away from Emergency Room. Advised patient will see [facility]. Kulwant Blum MD, PGY3 Obstetrics and Gynecology 12/16/2022 documented in this encounter Plan of Treatment Not on file documented as of this encounter Visit Diagnoses Not on filedocumented in this encounter Care Teams Grant Specialist Relationship Specialty Start Date End Date Sruthi Zurita [place] [address] [place] [address] PCP - General Family Medicine 07/30/22 documented as of this encounter
--- OUTSIDE RECORDS SUMMARY | 2023-12-26 22:56 | XMS_ITS | Encounter Summary ---
Author Organization [facility] Address [facility] [place] [address] Care Team Providers Care Dog Breeder Name Role Phone Sruthi Zurita APRN Primary Care Provider [phone] Encounter Details Date Type Department Care Team (Late st Contact Info) Description 12/31/2022 Telephone Orthopaedics at [facility] [place] [id number] Fallon Mcclelland PA [facility] DR ORTHOPAED[place] [address] Social History Tobacco Use Types Packs/Day Years [...] encounter Miscellaneous Notes * Telephone Encounter - Fallon Mcclelland PA - 12/31/2022 4:05 PM EST ----- Message from Tiffani Winston sent at 12/28/2022 4:26 PM EST ----- Regarding: FW: Surgery Contact: ----- Message ----- From: Thao Garzon Sent: 12/28/2022 1:29 PM EST To: [facility] Subject: Surgery Matias Lehman, I???ve decided to go ahead with the surgery. I would like to do both hands at once. I am just wondering if I can still breastfeed after the meds I will be getting for the surgery? Or if there???s a period of time when my son will have to bottle feed. I???m fine with either, just trying to plan. Let me know what other information you need from me! Thao documented in this encounter Plan of Treatment Not on file documented as of this encounter Visit Diagnoses Diagnosis Bilateral hand numbness Disturbance of skin sensation documented in this encounter Care Teams Dog Breeder Relationship Specialty Start Date End Date Sruthi Zurita APRN [address] [place] [address] PCP - General Family Medicine 07/30/22 documented as of this encounter
--- OUTSIDE RECORDS SUMMARY | 2023-12-26 22:56 | XMS_ITS | Encounter Summary ---
Author Organization [facility] Address [facility] [place] [address] Care Team Providers Care Master Control Engineer Name Role Phone Sruthi Zurita APRN Primary Care Provider [phone] Encounter Details Date Type Department Care Team (Latest Contact Info) Description 12/14/2022 Travel Social History Tobacco Use Types Packs/Day [...] place to sleep or slept in a alf (including now)? No 11/02/2022 Comments Yes Sex and Gender Information Value Date Recorded Sex Assigned at Not on file Gender Identity Not on file Sexual Orientation Not on file documented as of this encounter Plan of Treatment Not on file documented as of this encounter Visit Diagnoses Not on filedocumented in this encounter Care Teams Master Control Engineer Relationship Specialty Start Date End Date Sruthi Zurita, CONRAD [address] [place] [address] PCP - General Family Medicine 07/30/22 documented as of this encounter
--- OUTSIDE RECORDS SUMMARY | 2023-12-26 22:56 | XMS_ITS | Encounter Summary ---
[facility] Organization [facility] [place] [address] Care Team Providers Care Industrial Machine System Technician Name Role Phone Sruthi Zurita APRN Primary Care Provider [phone] Reason for Visit * Auth/Cert (Routine) Specialty Diagnoses / Procedures Referred By Lane t Referred To Contact Diagnoses Carpal tunnel syndrome, bilateral Bilateral hand numbness carpal tunnel syndrome bilateral Procedures PRO ENDOSCOPIC WRIST SURG RELEASE TRANSVERSE CARPAL LIGAMENT ENDOSCOPY WRIST W/ RELEASE TRANSVERSE CARPAL LIGAMENT (WRVU 6.39) Lyly Stephen MD [facility] [place] [address] [facility] Referral ID Status Reason Start Date Expiration Date Visits Re quested Visits Authorized [id number] 1 1 Encounter Details Date Type Department Care Team (Latest Contact Info) Description 01/18/2023 9:23 AM EST - 01/18/2023 11:58 AM [facility] Hospital Encounter [place] [address] Lyly Stephen MD [facility] [place] [address] Bilateral hand numbness Discharge Disposition: Home Social History Tobacco Use [...] place to sleep or slept in a detention (including now)? No 11/02/2022 DH IPV Inpatient [...] Sign Reading Time Taken Comments Blood Pressure 135/68 01/18/2023 11:45 AM EST Pulse 65 01/18/2023 11:45 AM EST Temperature 36 ??C (96.8 ??F) 01/18/2023 10:59 AM EST Respiratory Rate 16 01/18/2023 11:45 AM EST Oxygen Saturation 95% 01/18/2023 11:45 AM EST Inhaled Oxygen Concentration - - Weight 52.2 kg (115 lb) 01/18/2023 9:55 AM EST Height 157.5 cm (5' 2) 01/18/2023 9:55 AM EST Body Mass Index 21.03 01/18/2023 9:55 AM EST documented in this encounter Discharge Instructions * Discharge Instructions* Lorena Galeas RN - 01/18/2023 10:06 AM EST Moderate Sedation You may have received medication before and/or during your procedure, which affects your judgement and reaction time. Do not drive, operate machinery, drink alcoholic beverages, or make any legal decisions for 24 hours. Be careful on stairs, as you may be unsteady on your feet. You may eat a regular diet as tolerated. Do not smoke if you are alone. IV site -- slight redness, or tenderness is normal, you can use a warm compress. If tenderness and redness increases or foul drainage occurs, please contact your M. D. Questions or problems after 5pm or on a weekend: Call the [facility] cell room operator and ask for the physician transportation superintendent covering for your doctor. * Patient Instructions* Lima Erickson PA - 01/18/2023 8:08 AM EST Orthopaedic Hand Surgery Same Day Discharge Instructions: General Activities Diet: Start light and progress as tolerated. No alcoholic beverages on the day of surgery or while taking narcotics. If taking narcotics, make sure you are getting plenty of fluids and fiber. In general, care should be taken the first several days following surgery to limit strenuous activity. You want to avoid any activities that you may lose your balance, slip, trip, fall or re-injure your surgery. You may shower tomorrow. Cover your dressing/cast with a plastic bag to keep it dry. No driving while taking narcotic medications or wearing a device (splint, cast, sling, brace) that limits joint mobility. When you feel you can safely control your vehicle and respond to unpredictable situations you may resume driving. Hand Use Decreased sensation for several hours following surgery is often from the local anesthesia used during the procedure. This will resolve on its own. If a regional anesthetic was used, wear your sling until you regain full function of your limb, andkeep a close eye on the positioning of your arm and hand. When you have regained function and sensation you may then remove the sling. Do not use your operative hand for any lifting, pushing or pulling. You may move your elbow and shoulder as tolerated. Gentle exercises with any exposed fingers are encouraged and gently opening and closing the digits will keep the joints flexible. Specific activities and exercises will be discussed at your first postoperative visit. Ice and elevation Some swelling is expected after surgery. Ice and elevation are the best remedies to reduce swellingand pain. Keep your hand properly elevated above the level of the heart i.e., fingers above palm, palm above the wrist, wrist above the elbow. Use pillows to increase elevation. Intermittently apply ice to the outside of the dressing for 20 minutes 6-8 times a day. You will want to ice and elevate for 5-7 days after surgery or as long as it hurts. For proper elevation while walking around place your surgical hand on your opposite shoulder. Dressing/ Wound: The post-op dressing, splint or cast is a very important part of your treatment. If you have any questions please call us for clarification. If your dressing becomes wet or damaged please call the office. No creams, lotions or ointments on your incision. Keep your dressing on and dry for 48 hours then you may remove. Cover your suture/incision with a Band-Aid and change as needed. Keep your incision clean and dry until follow-up appointment. Pain Management If tolerated, please take Tylenol three times a day in conjunction with the narcotic as they complement each other. Once pain is better controlled, you may simply take extra strength Tylenol, one to two tablets every six hours as needed. Do not exceed 3,000 mg in 24 hours. To minimize constipation, drink plenty of fluids, eat a high fiber diet with plenty of fruits and vegetables, and take a stool softener or laxative as needed. You may take an anti-inflammatory medication such as Ibuprofen/Advil/Motrin or Naproxen/Aleve. Refer to the medication bottles for daily allowance and dosing. Discontinue if it causes stomach upset. Contact Information: During clinic hours M-F 8-4:30 please call [phone] If it is after 5:00PM on a weekday or a weekend and it is of an urgent nature please call [phone] and ask for the on-call orthopaedic resident. Call if: You have a fever greater than 101 F or experience chills Increased drainage from incision Redness or extreme swelling around incision Increased pain or change in pain that is not controlled with elevation, ice and your pain medication. Any questions concerns related to surgery Future Appointments Date Time Provider Department Center 01/30/2023 1:40 PM Tamiko Dalton PA [facility] ORTH 3A [facility] 01/30/2023 2:30 PM Mario Hayward MD [facility] OBG 5L [facility] documented in this encounter Medications at Time [...] as of this encounter Progress Notes * Hazel Quiroga RN - 01/18/2023 11:52 AM EST Patient arrived to post op with LMA airway in place, and on 6L O2 via simple mask. Airway removed at 1115. Once awake patient denies having any pain or nausea, and tolerated sips of PO fluids. Dressings on RUE and LUE are clean dry and intact, and CMST bilaterally are WNL- warm exposed fingers, brisk cap refill and intact sensation. IV removed prior to d/c, and replaced with pressure, gauze and aband-aid. Discharge instructions and medications reviewed with patient and , Darryn. All questions answered and written copy of AVS and ice packs sent home with patient. Patient ambulated to car for discharge accompanied by [facility] staff member. documented in this encounter H&P Notes * Lyly Stephen MD - 01/18/2023 10:06 AM EST I met Thao Duran in the preoperative holding area. She has bilateral severe carpal tunnel syndrome with progressive weakness and severe dysesthesias. She was offered the options of corticosteroid injection or simply observation and splinting but she strongly prefers to treat this with carpal tunnel decompression. This was partially based on the fact that her mother had a similar presentation during which led to long-term problems because she did not have her carpal tunnel syndrome addressed at the time. She is aware that her carpal tunnel releases will likely be done endoscopically although there is a possibility that an open procedure may need to be done. She is aware that with such surgery there are potential risks which include but are not limited to infection,neurovascular or tendon injury, incomplete or no relief of neurogenic symptoms, pillar pain, field organizer weakness, and recurrence of carpal tunnel syndrome. Her questions were solicited and answered and shewishes to proceed with bilateral carpal tunnel decompressions to be done today. Source Note - Fallon Mcclelland PA - 12/27/2022 1:00 PM EST Images from the original note were not included. PATIENT NAME: Thao Garzon AGE: 32 y.o. MR#: [id number] DATE OF VISIT: 12/27/2022 DATE OF INJURY/ONSET: 2 months CHIEF COMPLAINT: Bilateral hand numbness HISTORY OF PRESENT ILLNESS: Ms. Garzon is a right hand dominant 32 y.o. female who comes into clinic today for evaluation of bilateral hands. The patient has a history significant for giving on12/16/22. The patient reports bilateral hand numbness involving digits 1-4 bilaterally. She reports difficulty with fine motor and field organizer strength weakness. The symptoms developed approximately 2 months ago with continued worsening. She reports worsening at night and with driving a car. She has tried splinting on 1 occasion without improvement. Medications and Allergies were reviewed in [facility] PAST MEDICAL HX: No past medical history on file. PAST SURGICAL HX: No past surgical history on file. FAMILY HX: No family history on file. SOCIAL HX: Social History Occupational History Not on file Tobacco Use Smoking status: Never Smokeless tobacco: Never Vaping Use Vaping Use: Never used Substance and Sexual Activity Alcohol use: Not on file Drug use: Not on file Sexual activity: Not on file ROS: Constitutional: Denies fevers, chills Respiratory: Denies shortness of breath, cough Cardiac: Denies chest pain, palpitations GI: denies abdominal pain, nausea, vomiting Skin: Denies new rashes or lesions Neuro: Positive for numbness, tingling, and weakness Musculoskeletal: as above in HPI 12/27/2022 General Health, Prior Treatments, PreExisting Condition, Health Habits, About You PROMIS-10 General Health Excellent PROMIS-10 Quality of Life Very Good PROMIS-10 Physical Health Very Good PROMIS-10 Mental Health Very Good PROMIS-10 Social Activity Very Good PROMIS-10 Everyday Activities Mostly PROMIS-10 Pain 4 PROMIS-10 Fatigue Mild PROMIS-10 Social Roles Very Good PROMIS-10 Anxious or Depressed Rarely PROMIS PHYSICAL SCORE (range 16-68) 47.7 PROMIS MENTAL SCORE (range 21-68) 53.3 Treatments Tried Heat and ice therapy Brace Over the counter anti-inflammatory drugs (e.g Advil, Aspirin, Aleve) Alzheimers or dementia No Cirrohosis or liver disease No HIV/AIDS No Pain in more than one joint in legs No Back or neck pain No Heart attack No Heart failure No Unclog/bypass leg arteries No Stroke, blood clot, TIA No Asthma Yes Take medication for asthma No Emphysema, chronic bronchities, or COPD No Stomach ulcers/peptic ulcer disease No Diabetes No Poor kidney function No Rheumatic condtions No Cancer No Weight (lbs) 110 Height (feet) 5 feet Height (Inches) 2 BMI 20.12 (Normal) Ever used tobacco products No Ever used alcoholic beverages Yes Alcohol frequency Never WHO - Alcohol Advice 0 (You are at low risk of health and other problems from your current pattern of use.) Live Alone No Marital situation Schooling 4 - year college Combined Household Income $75,000 or more # People Supported 3 Slovenian, , No, not Slovenian// Race White Health Literacy Extremely Currently working Yes Current job situation Part-time for other reasons Employment status before injury Currently working Returned to previous employment Yes Working at same capacity as before injury No Spending time in inpatient rehab facility No Rate overall condition today 8 No data to display No data to display PHYSICAL EXAM: Ms. Garzon is a 32 y.o. female General appearance: in no acute distress, alert, cooperative Psych: cooperative with exam, appropriate Head: normocephalic, atraumatic EENT: EOMI grossly intact Neck: supple, trachea midline Cardiac: regular rate and rhythm by peripheral pulse Lungs: non-labored respirations Musculoskeletal: BUE Inspection: No thenar atrophy. Palpation: No tenderness to palpation ROM: Full finger and wrist range of motion. Orthopedic testing: Positive Tinel's, Liam's, Phalen's bilaterally. Neurovascular: SGILT R/M/U/Ax nerve distributions; AIN/PIN/U nerves fire; 2+ radial pulse ASSESSMENT: Bilateral carpal tunnel syndrome PLAN: -Patient was counseled that this is most consistent with carpal tunnel syndrome. She was counseled that we can get confirmatory testing with either an EMG with neurology versus a median nerve ultrasound, although given her CTS 6 score of 21.5, this is extremely likely to be carpal tunnel syndrome. The patient was counseled on management options including nocturnal carpal tunnel bracing versus a trial of a corticosteroid injection of the carpal tunnel on 1 side versus surgical carpal tunnel release. After extensive discussion of benefits and risks of each of the above listed options and answering the patient's questions, the patient would like to continue to consider her options and will letus know when she makes a decision. She was counseled that her symptoms may improve on their own given that she is 10 days . - She will return for follow up PRN. - The patient understands to contact us if they have any other questions or concerns. Fallon Mcclelland PA-C Department of Orthopaedics [facility] * Lima Erickson PA - 01/18/2023 10:06 AM EST Patient Name: Thao Garzon Patient Age: 32 y.o. Birthdate: 1990 Admit date: 01/18/2023 Attending Physician: Lyly Stephen MD Pre-op H&P: The patient's history and physical exam have been reviewed and completed. There has been no interval change from that of the pre-operative history and physical exam done within the last 30 days. Physical Exam: General: NAD CV: RRR Pulm: Non-labored respiration. Chest rise equal bilaterally. Operative site: Marked Patient eligible to proceed to the OR as planned. MADHU Kruse, 01/18/2023, 1006 documented in this encounter Miscellaneous Notes * Op Note - Lyly Stephen MD - 01/18/2023 10:33 AM EST [facility] Operative Note Patient Name: Thao Garzon : [id number] MR#: [id number] Case Date: 01/18/2023 Surgeon: Surgeon(s) and Role: * Lyly Stephen MD - Primary * Lima Erickson PA - Physician Clamp Operator Preoperative diagnosis: Bilateral carpal tunnel syndrome Postoperative diagnosis: Bilateral carpal tunnel syndrome Procedures: Endoscopic bilateral carpal tunnel decompressions Anesthesia: General/local OPERATIVE INDICATION: The patient is a 32 y.o.-year-old Female with peripartum carpal syndrome withsevere and progressive symptoms which have been refractory to conservative treatment. She was brought to the operating room for endoscopic bilateral carpal tunnel decompressions. This procedure was done with a physicians assistant district attorney because there was no qualified resident available to assist. SUMMARY OF PROCEDURE: After general anesthesia was performed, the patient's bilateral upper extremities were prepped with Hibiclens scrub and ChloraPrep. Her arms were draped in a sterile fashion. A preoperative time-out was performed as per [facility] protocol. Right carpal tunnel decompression was done first. Her right arm was then exsanguinated with an Esmarch bandage. A brachial tourniquet was inflated to 220 mmHg. A transverse incision was made at the palmar wrist crease in line with the ring finger ray. Subcutaneous spreading was performed in a blunt fashion down to the level of the investing fascia of the palmar surface of the forearm. Throughout this dissection, care was taken to avoid injury to subcutaneous neurovascular structures. The investing fascia was incised. It was elevated as a distally based flap which allowed for entry into the carpal tunnel. A synovial elevator was then used to dissect synovium from the undersurface of the transverse carpal ligament. A hamate finder was inserted into the carpal tunnel to confirm the proper level of entry. The MicroAire endoscopic carpal tunnel releasedevice was inserted into the carpal tunnel. It was passed distally until the distal edge of the transverse carpal ligament was well visualized. The blade was elevated and the device was withdrawn, transecting the transverse carpal ligament. The device was reinserted and complete release of the transverse carpal ligament was confirmed. Under direct vision, the investing fascia at of the palmar surface of forearm was released well proximal to the wrist incision site using tenotomy scissors. The incision was irrigated and was closed with 4-0 nylon suture. 5mL of 2% lidocaine with epinephrine buffered with sodium bicarbonate was injected over the median nerve at the level of the wrist as well as over the palmar side of the patient's right hand. A sterile soft dressing was applied. The tourniquet was released with a total tourniquet time of 4 minutes. All digits rapidly became pink and warm with brisk capillary refill. Endoscopic left carpal tunnel decompression was done next. Her left arm was then exsanguinated withan Esmarch bandage. A brachial tourniquet was inflated to 220 mmHg. A transverse incision was made at the palmar wrist crease in line with the ring finger ray. Subcutaneous spreading was performed yessi blunt fashion down to the level of the investing fascia of the palmar surface of the forearm. Thro ughout this dissection, care was taken to avoid injury to subcutaneous neurovascular structures. The investing fascia was incised. It was elevated as a distally based flap which allowed for entry into the carpal tunnel. A synovial elevator was then used to dissect synovium from the undersurface of the transverse carpal ligament. The hamate finder was inserted into the carpal tunnel to confirm theproper level of entry. The MicroAire endoscopic carpal tunnel release device was inserted into the carpal tunnel. It was passed distally until the distal edge of the transverse carpal ligament was well visualized. The blade was elevated. The device was withdrawn, transecting the transverse carpal ligament. The device was reinserted and complete release of the transverse carpal ligament was confirmed. Under direct vision, the investing fascia at of the palmar surface of forearm was released wellproximal to the wrist incision site using tenotomy scissors. The incision was irrigated and was closed with 4-0 nylon suture. 5mL of 2% lidocaine with epinephrine buffered with sodium bicarbonate wasinjected over the median nerve at the level of the wrist as well as over the palmar side of the patient's right hand. A sterile soft dressing was applied. The tourniquet was released with a total tourniquet time of 4 minutes. All digits rapidly became pink and warm with brisk capillary refill. She was then extubated and transferred to the recovery room in stable condition. Estimated blood loss was minimal. IV fluid replacement was 600 mL of crystalloid. She tolerated the procedures well without apparent complications. Attestation: Case Date: 01/18/2023 I performed this procedure without the involvement of a resident. LYLY STEPHEN MD 01/18/2023 * Brief Op Note - Lyly Stephen MD - 01/18/2023 10:12 AM EST Brief Operative Note Patient Name: Thao Garzon : [id number] MR#: [id number] Case Date: 01/18/2023 Surgeon: Surgeon(s) and Role: * Lyly Stephen MD - Primary * Lima Erickson PA - Physician Clamp Operator Preoperative diagnosis: Bilateral carpal tunnel syndrome Postoperative diagnosis: Bilateral carpal tunnel syndrome Procedure(s) (LRB): ENDOSCOPY WRIST W/ RELEASE TRANSVERSE CARPAL LIGAMENT (WRVU 6.39) (Bilateral) Modifiers: : MADHU/CONRAD assistant district attorney surgeon (no qualified resident available) Anesthesia: General/local Complications: None Intake: 600cc crystalloid Output: Estimated Blood Loss: None Drains: None Specimens removed during surgery: None Disposition: awakened from anesthesia, extubated and taken to the recovery room in a stable condition, having suffered no apparent untoward event. Condition: doing well without problems Attestation: Case Date: 01/18/2023 I performed this procedure without the involvement of a resident. documented in this encounter Plan of Treatment Not on file documented as of this encounter Procedures Procedure Name Priority Date/Time Associated Diagnosis Comments Endoscopic Wrist Surg Release Transverse Carpal Ligament (66586) 01/18/2023 10:20 AM EST Bilateral hand numbness ARTHROSCOPY WRIST W/ RELEASE TRANSVERSE CARPAL LIGAMENT Routine 01/18/2023 9:37 AM EST Bilateral hand numbness documented in this encounter Visit Diagnoses Diagnosis Bilateral hand numbness Disturbance of skin sensation S/P bilateral endoscopic carpal tunnel release 01/18/23 Dr. Stephen Other postprocedural status documented in this encounter Administered Medications Inactive Administered Medications - up to 3 most recent administrations Medication Order MAR Action Action Date Dose Rate Site lactated ringers infusion 1,000 mL, at 100 mL/hr, Intravenous, CONTINUOUS, Starting on Sat01/18/23 at 1015, Until Sat01/18/23 at 1152, Day of Surgery (Day of Procedure) Restarted 01/18/2023 10:21 AM EST New Bag 01/18/2023 10:17 AM EST 1,000 mLs 100 mL/hr documented in this encounter Active and Recently Administered Medications Times are shown in EST. Continuous Medication Order 01/16/2023 01/17/2023 01/18/2023 lactated ringers infusion (CANCELED) 1,000 mL, at 100 mL/hr, Intravenous, CONTINUOUS, Starting on Sat01/18/23 at 1015, Until Sat01/18/23 at 1152, Day of Surgery (Day of Procedure) 1017 (New Bag - Prov ider: Lorena Aleman RN)1020 (Paused - Provider: Jennifer Headlye CRNA - Comment: Switch to gravity)1021 (Restarted - Provider: Jennifer Headley CRNA) PRN Medication Order 01/16/2023 01/17/2023 01/18/2023 lidocaine-EPINEPHrine (pf) (2% - 1:200,000) injection (CANCELED) PRN, Starting on Sat01/18/23 at 1047, Until Sat01/18/23 at 1402, Intra-Operative (Intra-Procedure), Routine 1047 (Given - Provid er: Lyly Stephen MD - Comment: 2 mL sodium bicarb mixed with 20 mL 2% lido with epi 1:200,000) sodium bicarbonate 8.4 % (1 meq/ml) IV solution (CANCELED) PRN, Starting on Sat01/18/23 at 1033, Until Sat01/18/23 at 1402, Intra-Operative (Intra-Procedure), Routine 1047 (Given - Provid er: Lyly Stephen MD - Comment: 2 mL sodium bicarb mixed with 20 mL 2% lido with epi 1:200,000) documented in this encounter Care Teams Industrial Machine System Technician Relationship Specialty Start Date End Date Sruthi Zurita, BATTER MIXER [facility] [place] [address] PCP - General Family Medicine 07/30/22 documented as of this encounter
--- OUTSIDE RECORDS SUMMARY | 2023-12-26 22:56 | XMS_ITS | Encounter Summary ---
[facility] Organization [facility] [place] [address] Care Team Providers Care Tapper Shank Name Role Phone Sruthi Zurita APRN Primary Care Provider [phone] Reason for Visit * Auth/Cert (Routine) Specialty Diagnoses / Procedures Referred By Lane whitehead Referred To Contact Diagnoses Carpal tunnel syndrome, bilateral Bilateral hand numbness carpal tunnel syndrome bilateral Procedures PRO ENDOSCOPIC WRIST SURG RELEASE TRANSVERSE CARPAL LIGAMENT ENDOSCOPY WRIST W/ RELEASE TRANSVERSE CARPAL LIGAMENT (WRVU 6.39) Lyly Stephen MD [facility] [place] [address] [facility] Referral ID Status Reason Start Date Expiration Date Visits Re quested Visits Authorized [id number] 1 1 Encounter Details Date Type Department Care Team (Late st Contact Info) Description 01/18/2023 10:41 AM EST - 01/18/2023 11:51 AM EST Surgery [place] [address] Lyly Stephen MD [facility] [place] [address] ENDOSCOPY WRIST W/ RELEASE TRANSVERSE CARPAL LIGAMENT (WRVU 6.39) Social History Tobacco Use Types Packs/Day Years [...] place to sleep or slept in a senior living (including now)? No 11/02/2022 DH IPV Inpatient [...] 5pm or on a weekend: Call the [facility] single ending machine operator and ask for the physician division supervisor covering for your doctor. * Patient Instructions* [...] During clinic hours M-F 8-4:30 please call [phone] If it is after 5:00PM on a weekday or a weekend and it is of an urgent nature please call [phone] and ask for the on-call orthopaedic resident. [...] Center 01/30/2023 1:40 PM Tamiko Dalton PA [facility] ORTH 3A [facility] 01/30/2023 2:30 PM Mario Hayward MD [facility] OBG 5L [facility] documented in this encounter Medications at Time [...] 01/18/2023 10:06 AM EST I met Thao Garzon in the preoperative holding area. She has [...] no relief of neurogenic symptoms, pillar pain, telecommunications network planner weakness, and recurrence of carpal tunnel syndrome. Her questions were solicited and answered and shewishes to proceed with bilateral carpal tunnel decompressions to be done today. Source Note - Fallon Mcclelland PA - 12/27/2022 1:00 PM EST Images from the original note were not included. PATIENT NAME: Thao Garzon AGE: 32 y.o. MR#: [id number] DATE OF VISIT: 12/27/2022 DATE OF INJURY/ONSET: [...] She reports difficulty with fine motor and telecommunications network planner strength weakness. The symptoms developed approximately 2 [...] $75,000 or more # People Supported 3 Niuean, , No, not Niuean// Race White Health Literacy Extremely Currently working [...] concerns. Fallon Mcclelland PA-C Department of Orthopaedics [facility] * Lima Erickson PA - 01/18/2023 [...] Stephen MD - 01/18/2023 10:33 AM EST [facility] Operative Note Patient Name: Thao Garzon : [id number] MR#: [id number] Case Date: 01/18/2023 Surgeon: Surgeon(s) and Role: * Lyly Stephen MD - Primary * Lima Erickson PA - Physician Door Opener Preoperative diagnosis: Bilateral carpal tunnel syndrome Postoperative [...] This procedure was done with a physicians embroidery assistant because there was no qualified resident available to assist. SUMMARY OF PROCEDURE: After general anesthesia was performed, the patient's bilateral upper extremities were prepped with Hibiclens scrub and ChloraPrep. Her arms were draped in a sterile fashion. A preoperative time-out was performed as per [facility] protocol. Right carpal tunnel decompression was done [...] Operative Note Patient Name: Thao Garzon : [id number] MR#: [id number] Case Date: 01/18/2023 Surgeon: Surgeon(s) and Role: * Lyly Stephen MD - Primary * Lima Erickson PA - Physician Door Opener Preoperative diagnosis: Bilateral carpal tunnel syndrome Postoperative diagnosis: Bilateral carpal tunnel syndrome Procedure(s) (LRB): ENDOSCOPY WRIST W/ RELEASE TRANSVERSE CARPAL LIGAMENT (WRVU 6.39) (Bilateral) Modifiers: : MADHU/CONRAD embroidery assistant surgeon (no qualified resident available) Anesthesia: General/local [...] Endoscopic Wrist Surg Release Transverse Carpal Ligament (02412) 01/18/2023 10:20 AM EST Bilateral hand numbness ARTHROSCOPY WRIST W/ RELEASE TRANSVERSE CARPAL LIGAMENT Routine 01/18/2023 9:37 AM EST Bilateral hand numbness documented in this encounter Visit Diagnoses Diagnosis Bilateral hand numbness Disturbance of skin sensation S/P bilateral endoscopic carpal tunnel release 01/18/23 Dr. Stephen Other postprocedural status Bilateral hand numbness Disturbance of skin sensation documented in this encounter Administered Medications Inactive [...] 10:17 AM EST 1,000 mLs 100 mL/hr lidocaine-EPINEPHrine (pf) (2% - 1:200,000) injection PRN, Starting on Sat01/18/23 at 1047, Until Sat01/18/23 at 1402, Intra-Operative (Intra-Procedure), Routine Given 01/18/2023 10:47 AM EST 8 mLs 19- Surgical Site sodium bicarbonate 8.4 % (1 meq/ml) IV solution PRN, Starting on Sat01/18/23 at 1033, Until Sat01/18/23 at 1402, Intra-Operative (Intra-Procedure), Routine Given 01/18/2023 10:47 AM EST 2 mEq 19- Surgical Site documented in this encounter Active and Recently Administered Medications Times are shown in EST. Continuous Medication Order 01/16/2023 01/17/2023 01/18/2023 lactated ringers infusion (CANCELED) 1,000 mL, at 100 mL/hr, Intravenous, CONTINUOUS, Starting on Sat01/18/23 at 1015, Until Sat01/18/23 at 1152, Day of Surgery (Day of Procedure) 1017 (New Bag - Prov ider: Lorena Aleman RN)1020 (Paused - Provider: Jennifer Headley CRNA - Comment: Switch to gravity)1021 (Restarted [...] 1:200,000) documented in this encounter Care Teams Tapper Shank Relationship Specialty Start Date End Date Sruthi Zurita, FILM RENTAL CLERK [facility] [place] [address] PCP - General Family Medicine 07/30/22 documented as of this encounter
--- OUTSIDE RECORDS SUMMARY | 2023-12-26 22:56 | XMS_ITS | Encounter Summary ---
Author Organization [facility] Address [facility] [place] [address] Care Team Providers Care Manifest/Order Organizer Print Orders Name Role Phone Sruthi Zurita APRN Primary Care Provider [phone] Encounter Details Date Type Department Care Team (Latest Contact Info) Description 01/30/2023 Travel Social History Tobacco Use Types Packs/Day Years Used Date Smoking Tobacco: Never Smokeless Tobacco: Never Alcohol Use Standard Drinks/Week Comments Not Asked 0 (1 standard drink = 0.6 oz pur e alcohol) 2 - 4 per week [facility] Utilities Answer Date Recorded In the past 12 months has [employer], gas, oil, or water [employer] threatened to shut off services in your [...] place to sleep or slept in a longterm (including now)? No 01/30/2023 DH IPV Inpatient [...] on filedocumented in this encounter Care Teams Manifest/Order Organizer Print Orders Relationship Specialty Start Date End Date Sruthi Zurita, BUTTONHOLE MACHINE OPERATOR [employer] [facility] [place] [address] PCP - General Family Medicine 07/30/22 documented as of this encounter
--- OUTSIDE RECORDS SUMMARY | 2023-12-26 22:56 | XMS_ITS | Encounter Summary ---
Author Organization [facility] Address [facility] [place] [address] Care Team Providers Care 21 Dealer Name Role Phone Sruthi Zurita APRN Primary Care Provider [phone] Reason for Visit * Reason Comments Establish Care BILAT CTS * Consultation (Routine) - Closed Specialty Diagnoses / Procedures Referred By Lane t Referred To Contact Orthopaedics Diagnoses Carpal tunnel syndrome, bilateral Mario Hayward MD [facility] OBSTETRICS [place] [address] [facility] Orthopaedics [address] [place] [address] Referral ID Status Reason Start Date Expiration Date V isits Requested Visits Authorized [id number] Closed Consult, Test & Treat 12/25/2022 12/25/2023 1 1 Encounter Details Date Type Department Care Team (Late st Contact Info) Description 12/27/2022 1:00 PM EST Office [place] [phone] [facility] ORTHOPAEDIC [place] [address] Bilateral hand numbness Social History Tobacco Use [...] place to sleep or slept in a [place] [facility] [place] (including now)? No 11/02/2022 Sex and Gender [...] - Inhaled Oxygen Concentration - - Weight 49.9 kg (110 lb) 12/27/2022 12:55 PM EST Height 157.5 cm (5' 2) 12/27/2022 12:55 PM EST Body Mass Index 20.12 12/27/2022 12:55 PM EST documented in this encounter Progress Notes * Fallon Mcclelland PA - 12/27/2022 1:00 PM EST Images from the original note were not included. PATIENT NAME: Thao Garzon AGE: 32 y.o. MR#: [id number] DATE OF VISIT: 12/27/2022 DATE OF INJURY/ONSET: [...] She reports difficulty with fine motor and wellfield technician strength weakness. The symptoms developed approximately 2 [...] $75,000 or more # People Supported 3 Belgian, , No, not Belgian// Race White Health Literacy Extremely Currently working [...] concerns. Fallon Mcclelland PA-C Department of Orthopaedics [facility] documented in this encounter Plan of Treatment Scheduled Referrals Name Type Priority Associated Diagnoses Orde r Schedule Referral to Hand Clinic Outpatient Referral Routine Carpal tunnel syndrome, bilateral Ordered: 12/25/2022 documented as of this encounter Visit Diagnoses Diagnosis Bilateral hand numbness Disturbance of skin sensation documented in this encounter Care Teams 21 Dealer Relationship Specialty Start Date End Date Sruthi Zurita, ATTACHER [address] [place] [address] PCP - General Family Medicine 07/30/22 documented as of this encounter
--- OUTSIDE RECORDS SUMMARY | 2023-12-26 22:57 | XMS_ITS | Encounter Summary ---
Author Organization [facility] Address [address] [place] [address] Care Team Providers Care Straight Line Press Setter Name Role Phone Unavailable Primary Care Provider Unavailabl e Encounter Details Date Type Department Care Team (Late st Contact Info) Description 11/01/2020 Lab Requisition [facility] Pathology & Laboratory Medicine - [facility] [address] [place] [address] Outr Resulting Lab, Provider Social History Tobacco Use Types Packs/Day Years Used Date Smoking Tobacco: Never Assessed Comments Unknown Sex and Gender Information Value Date Recorded Sex Assigned at Not on file Legal Sex Female 15:26 EDT Gender Identity Not on file Sexual Orientation Not on file documented as of this encounter Plan of Treatment Not on file documented as of this encounter Procedures Procedure Name Priority Date/Time Associated Diagnosis Comments HEPATITIS B SURFACE ANTIBODY Routine 11/01/2020 10:29 EDT VARICELLA IGG ANTIBODY Routine 11/01/2020 10:29 EDT documented in this encounter Results * HEPATITIS B SURFACE ANTIBODY (11/01/2020 10:29 EDT) Hep B Surface Ab, Quantitative 132.8 See Note mIU/mL 11/02/2020 8:45 EDT [facility] Comment: Reference Range for Hep B Surface Ab, Quant: Positive: >= 10.0 mIU/mL Negative: ??< 10.0 mIU/mL Patient is presumed to be immune to infection with Hepatitis B Virus. Hep B Surface Ab, Qualitative Positive See Note 11/02/2020 8:45 EDT [facility] Comment: Reference Range for Hep B Surface Ab, Qual: Unvaccinated: ??Negative Vaccinated: ??Positive Blood VENOUS BLOOD / Unknown 11/01/2020 10:29 EDT 11/01/2020 21:57 EDT us Provider Outr Resulting Lab CHEMISTRY & BLOOD GA S ORDERABLES Final Result Performing Organization Address [facility] Co de Phone Number [facility] [address] [place] [address] * VARICELLA IGG ANTIBODY (11/01/2020 10:29 EDT) Varicella IgG Ab Positive See Note 11/02/2020 10:08 EDT [facility] Comment:Presence of detectab le Varicella Zoster virus IgG antibodies. Blood VENOUS BLOOD / Unknown 11/01/2020 10:29 EDT 11/01/2020 21:57 EDT us Provider Outr Resulting Lab IMMUNOLOGY AND SEROL OGY ORDERABLES Final Result Performing Organization Address City/[facility]/ZIP Co de Phone Number [facility] [address] [place] [address] documented in this encounter Visit Diagnoses Not on filedocumented in this encounter
--- OUTSIDE RECORDS SUMMARY | 2023-12-26 22:57 | XMS_ITS | Encounter Summary ---
Author Organization [facility] Address [address] [place] [address] Care Team Providers Care Inspector Final Assembly Electrical Name Role Phone Unavailable Primary Care Provider Unavailabl e Encounter Details Date Type Department Care Team (Late st Contact Info) Description 05/29/2022 Lab Requisition [facility] Pathology & Laboratory Medicine - [facility] [address] [place] [address] Outr Resulting Lab, Provider Social History Tobacco [...] Procedure Name Priority Date/Time Associated Diagnosis Comments RUBELLA IGG ANTIBODY Routine 05/28/2022 15:50 EDT VARICELLA IGG ANTIBODY Routine 05/28/2022 15:50 EDT documented in this encounter Results * VARICELLA IGG ANTIBODY (05/28/2022 15:50 EDT) Varicella IgG Ab Positive See Note 05/30/2022 11:14 EDT [facility] Comment:Presence of detectab le Varicella Zoster virus IgG antibodies. Blood VENOUS BLOOD / Unknown 05/28/2022 15:50 EDT 05/29/2022 17:35 EDT us Provider Outr Resulting Lab IMMUNOLOGY AND SEROL OGY ORDERABLES Final Result [facility] [address] [place] [address] * RUBELLA IGG ANTIBODY (05/28/2022 15:50 EDT) Rubella IgG Ab Positive See Note 05/30/2022 11:18 EDT [facility] Comment:Positive for IgG ant ibodies to Rubella virus. Blood VENOUS BLOOD / Unknown 05/28/2022 15:50 EDT 05/29/2022 17:35 EDT us Provider Outr Resulting Lab CHEMISTRY & BLOOD GA S ORDERABLES Final Result [facility] [address] [place] [address] documented in this encounter Visit Diagnoses Not on filedocumented in this encounter
--- OUTSIDE RECORDS SUMMARY | 2023-12-26 22:57 | XMS_ITS | Encounter Summary ---
Author Organization [facility] Address [address] [place] [address] Care Team Providers Care Platform Supervisor Name Role Phone Unavailable Primary Care Provider Unavailabl e Encounter Details Date Type Department Care Team (Late st Contact Info) Description 11/02/2020 Lab Requisition [facility] Pathology & Laboratory Medicine - [facility] [address] [place], [place] [address] Outr Resulting Lab, Provider Social History Tobacco [...] Procedure Name Priority Date/Time Associated Diagnosis Comments QUANTIFERON MITOGEN (PERFORMABLE) Today 11/01/2020 10:29 EDT QUANTIFERON TB2 (PERFORMABLE) Today 11/01/2020 10:29 EDT QUANTIFERON TB1 (PERFORMABLE) Today 11/01/2020 10:29 EDT QUANTIFERON NIL (PERFORMABLE) Today 11/01/2020 10:29 EDT QUANTIFERON INTERPRETATION (PERFORMABLE) Today 11/01/2020 10:29 EDT QUANTIFERON TB GOLD PLUS Routine 11/01/2020 10:29 EDT documented in this encounter Results * QUANTIFERON INTERPRETATION (PERFORMABLE) (11/01/2020 10:29 EDT) Quantiferon Interpretation Negative Negative 11/03/2020 11:52 EDT [facility] Comment:No interferon-gamma response to M. tuberculosis antigens was detected. ??Infection with M. tuberculosis is unlikely. A single negative result does not exclude infection with M. tuberculosis. ??In patients at high risk for M. tuberculosis infection, a second test should be considered. TB1 Ag minus Nil 0.00 IU/ml 11/04/19 11:52 EDT [facility] TB2 Ag minus Nil 0.01 IU/mL 11/04/19 11:52 EDT [facility] Blood VENOUS BLOOD / Unknown 11/01/2020 10:29 EDT 11/03/2020 11:27 EDT Narrative [facility] - 11/03/2020 11:52 EDT Results were obtained with the [employer] QuantiFERON-TB Gold Plus CLIA. New platform in use 10/19/2020 us Provider Outr Resulting Lab IMMUNOLOGY AND SEROL OGY ORDERABLES Final Result Performing Organization Address [facility] Co de Phone Number [facility] [address] [place] [phone] * QUANTIFERON MITOGEN (PERFORMABLE) (11/01/2020 10:29 EDT) Blood VENOUS BLOOD / Unknown 11/01/2020 10:29 EDT 11/02/2020 21:33 EDT us Provider Outr Resulting Lab IMMUNOLOGY AND SEROL OGY ORDERABLES Final Result Performing Organization Address [facility] Co de Phone Number [facility] [address] [place] [address] * QUANTIFERON TB2 (PERFORMABLE) (11/01/2020 10:29 EDT) Blood VENOUS BLOOD / Unknown 11/01/2020 10:29 EDT 11/02/2020 21:33 EDT us Provider Outr Resulting Lab IMMUNOLOGY AND SEROL OGY ORDERABLES Final Result Performing Organization Address City/[facility]/ZIP Co de Phone Number [facility] [address] [place] [phone] * QUANTIFERON TB1 (PERFORMABLE) (11/01/2020 10:29 EDT) Blood VENOUS BLOOD / Unknown 11/01/2020 10:29 EDT 11/02/2020 21:33 EDT us Provider Outr Resulting Lab IMMUNOLOGY AND SEROL OGY ORDERABLES Final Result Performing Organization Address [facility] Co de Phone Number [facility] [address] [place] [address] * QUANTIFERON NIL (PERFORMABLE) (11/01/2020 10:29 EDT) Blood VENOUS BLOOD / Unknown 11/01/2020 10:29 EDT 11/02/2020 21:34 EDT us Provider Outr Resulting Lab IMMUNOLOGY AND SEROL OGY ORDERABLES Final Result Performing Organization Address City/[facility] Co de Phone Number [facility] [address] [place] [address] documented in this encounter Visit Diagnoses Not on filedocumented in this encounter
--- OUTSIDE RECORDS SUMMARY | 2023-12-26 22:57 | XMS_ITS | Referral Summary ---
Author Organization [facility] Address [address] [place] [address] Care Team Providers Care Upfitter Name Role Phone Unavailable Primary Care Provider Unavailabl e Social History Tobacco Use Types Packs/Day Years Used Date Smoking Tobacco: Never Assessed Comments Unknown Sex and Gender Information Value Date Recorded Sex Assigned at Not on file Legal Sex Female 15:26 EDT Gender Identity Not on file Sexual Orientation Not on file Plan of Treatment Not on file Procedures Procedure Name Priority Date/Time Associated Diagnosis Comments HEPATITIS C AB W REFLEX TO HCV RNA BY PCR Routine 05/28/2022 15:50 EDT from Last 3 Months or Most Recently Relevant to Health Maintenance Results * HEPATITIS C AB W REFLEX TO HCV RNA BY PCR (05/28/2022 15:50 EDT) Hep C Antibody Negative Negative 05/29/2022 20:26 EDT [facility] Blood VENOUS BLOOD / Unknown 05/28/2022 15:50 EDT 05/29/2022 17:35 EDT us Provider Outr Resulting Lab CHEMISTRY & BLOOD GA S ORDERABLES Final Result [facility] [address] [place] [address] from Last 3 Months or Most Recently Relevant to Health Maintenance
--- OUTSIDE RECORDS SUMMARY | 2023-12-26 22:57 | XMS_ITS | Encounter Summary ---
Author Organization [facility] Address [facility] [place] [address] Care Team Providers Care Ict Security Specialist Name Role Phone Sruthi Zurita APRN Primary Care Provider [phone] Encounter Details Date Type Department Care Team (Late st Contact Info) Description 11/21/2022 Orders Only Obstetrics [place] [id number] Mario Hayward MD [facility] [address] OBSTETRICS [place] [address] care in third trimester Social History Tobacco Use Types Packs/Day Years [...] as of this encounter Visit Diagnoses Diagnosis care in third trimester documented in this encounter Care Teams Ict Security Specialist Relationship Specialty Start Date End Date Sruthi Zurita APRN [address] [place] [address] PCP - General Family Medicine 07/30/22 documented as of this encounter
--- OUTSIDE RECORDS SUMMARY | 2023-12-26 22:57 | XMS_ITS | Encounter Summary ---
Author Organization [facility] Address [facility] [place] [address] Care Team Providers Care Gis Manager Name Role Phone Sruthi Zurita APRN Primary Care Provider [phone] Encounter Details Date Type Department Care Team (Latest Contact Info) Description 11/02/2022 Travel Social History Tobacco Use Types Packs/Day [...] place to sleep or slept in a [facility] (including now)? No 11/02/2022 Comments Yes Sex and Gender Information Value Date Recorded Sex Assigned at Not on file Gender Identity Not on file Sexual Orientation Not on file documented as of this encounter Plan of Treatment Not on file documented as of this encounter Visit Diagnoses Not on filedocumented in this encounter Care Teams Gis Manager Relationship Specialty Start Date End Date Sruthi Zurita, CONRAD [address] [place] [address] PCP - General Family Medicine 07/30/22 documented as of this encounter
--- OUTSIDE RECORDS SUMMARY | 2023-12-26 22:57 | XMS_ITS | Encounter Summary ---
Author Organization [facility] Address [facility] [place] [address] Care Team Providers Care Associate Professor Of Automation Name Role Phone Sruthi Zurita APRN Primary Care Provider [phone] Reason for Visit * Reason Comments Initial Visit Encounter Details Date Type Department Care Team (Late st Contact Info) Description 11/02/2022 10:15 AM EDT Initial Obstetrics [place] [address] Mario Hayward MD [facility] OBSTET[place] [address] GA: 33w6d Social History Tobacco Use Types Packs/Day Years Used Date Smoking Tobacco: Never Smokeless Tobacco: Never Tobacco Cessation:Counseling Given: Not Answered Overall Financial Resource Strain (CARDIA) Answe r [...] place to sleep or slept in a fci (including now)? No 11/02/2022 Comments Yes Sex and Gender Information Value Date Recorded Sex Assigned at Not on file Gender Identity Not on file Sexual Orientation Not on file documented as of this encounter Last Filed Vital Signs Vital Sign Reading Time Taken Comments Blood Pressure 100/60 11/02/2022 10:29 AM EDT Pulse - - Temperature - - Respiratory Rate - - Oxygen Saturation - - Inhaled Oxygen Concentration - - Weight 60 kg (132 lb 4.8 oz) 11/02/2022 10:29 AM EDT Height 157.5 cm (5' 2) 11/02/2022 10:30 AM EDT Body Mass Index 24.2 11/02/2022 10:29 AM EDT documented in this encounter Progress Notes * Mario Hayward MD - 11/02/2022 10:15 AM EDT Transfer of care from [place], [place] for this 32 yo at 33w6d Pt has received care at [facility], but wants to deliver here. Seen here after detailedmorphology US on 07/30/22. has generally been going well. Good activity. No bleeding or leaking fluid. Reports bilateral hand symptoms: numbness and weakness. A/P: Normal at 33w6d with likely transient carpal tunnel syndrome. 1) Need recent records from [place] 2) T+S, Hemogram 3) RTO 2 weeks. 4) Consider wrist splints at night for carpal tunnel syndrome. (Pt may have access to this). MD Floresita documented in this encounter Plan of Treatment Not on file documented as of this encounter Results * (ABNORMAL) Hemogram (11/02/2022 11:18 AM EDT) White Blood Cell 9.8(H) 4.0 - 9.5 x10(3)/mc L [facility] Red Blood Cell 4.34 4.00 - 5.21 x10(6)/mc L [facility] Hemoglobin 12.2 11.7 - 15.5 g/dL [facility] Hematocrit 36.4 35.7 - 45.8 % [facility] Mean Cell Volume 83.9 82.6 - 94.4 fL [facility] Mean Cell Hemoglobin 28.1 27.1 - 32.0 pg [facility] Mean Cell Hemoglobin Concentration 33.5 31.7 - 35.0 g/dL [facility] Platelet 216 145 - 357 x10(3)/mc L [facility] RDW Standard Deviation 37.2 37.0 - 46.0 fL [facility] RDW coefficient of variation 12.2 11.5 - 14.1 % [facility] Mean Platelet Volume 10.0 7.6 - 12.9 fL [facility] NRBC% auto 0.0 % [facility] NRBC Absolute 0.000 0.000 - 0.000 x10(3)/ L [facility] Blood 11/02/2022 11:1 8 AM EDT 11/02/2022 11:25 AM EDT Narrative Resulting Agency Comment Spec In Lab Mario Hayward MD HEMATOLOGY ORDERABLE S Performing Organization Address City/State/[facility] Co de Phone Number [facility] [place] [address] documented in this encounter Visit Diagnoses Diagnosis , unspecified gestational age Supervision of normal first , antepartum documented in this encounter Care Teams Associate Professor Of Automation Relationship Specialty Start Date End Date Sruthi Zurita, MICA SPREADER [address] [place] [address] PCP - General Family Medicine 07/30/22 documented as of this encounter
--- OUTSIDE RECORDS SUMMARY | 2023-12-26 22:57 | XMS_ITS | Encounter Summary ---
Author Organization [facility] Address [address] [place] [address] Care Team Providers Care Certified Medication Technician Name Role Phone Unavailable Primary Care Provider Unavailabl e Encounter Details Date Type Department Care Team (Late st Contact Info) Description 05/29/2022 Lab Requisition [facility] Pathology & Laboratory Medicine - [facility] [address], [place] [address] Outr Resulting Lab, Provider Social History Tobacco [...] Procedure Name Priority Date/Time Associated Diagnosis Comments HIV 1/2 ANTIGEN AND ANTIBODY, 4TH GENERATION Routine 05/28/2022 15:50 EDT documented in this encounter Results * HIV 1/2 ANTIGEN AND ANTIBODY, 4TH GENERATION (05/28/2022 15:50 EDT) HIV 1 and 2 Antibody/p24 Antigen, 4th Generation Negative Negative 05/29/2022 20:29 EDT [facility] Comment:If acute HIV-1 infec tion is suspected in a high risk patient, submit plasma specimen for HIV-1 RNA quantitation test. Blood VENOUS BLOOD / Unknown 05/28/2022 15:50 EDT 05/29/2022 17:35 EDT Narrative [facility] - 05/29/2022 20:29 EDT Fourth Generation assay performed on the Siemens Centaur XPT. us Provider Outr Resulting Lab IMMUNOLOGY AND SEROL OGY ORDERABLES Final Result [facility] [address] [place] [address] documented in this encounter Visit Diagnoses Not on filedocumented in this encounter
--- OUTSIDE RECORDS SUMMARY | 2023-12-26 22:57 | XMS_ITS | Encounter Summary ---
Author Organization [facility] Address [facility] [place] [address] Care Team Providers Care Dye Automation Operator Name Role Phone Sruthi Zurita APRN Primary Care Provider [phone] Encounter Details Date Type Department Care Team (Latest Contact Info) Description 11/28/2022 Travel Social History Tobacco Use Types Packs/Day [...] in a halfway (including now)? No 11/02/2022 Comments Yes Sex and Gender Information Value Date Recorded Sex Assigned at Not on file Gender Identity Not on file Sexual Orientation Not on file documented as of this encounter Plan of Treatment Not on file documented as of this encounter Visit Diagnoses Not on filedocumented in this encounter Care Teams Dye Automation Operator Relationship Specialty Start Date End Date Sruthi Zurita, CONRAD [address] [place] [address] PCP - General Family Medicine 07/30/22 documented as of this encounter
--- OUTSIDE RECORDS SUMMARY | 2023-12-26 22:57 | XMS_ITS | Encounter Summary ---
Author Organization [facility] Address [address] [place] [address] Care Team Providers Care Child Care Center Administrator Name Role Phone Unavailable Primary Care Provider Unavailabl e Encounter Details Date Type Department Care Team (Late st Contact Info) Description 05/16/2021 Lab Requisition [facility] Pathology & Laboratory Medicine - [facility] [address] [place] [address] Shayla Fish, INVESTIGATIONS CONSULTANT [address] [place] [address] Encounter for other general examination Social History Tobacco Use Types Packs/Day Years [...] Procedure Name Priority Date/Time Associated Diagnosis Comments PAP TEST Today 05/15/2021 11:15 EDT Encounter for other general examination HPV DNA DETECTION WITH GENOTYPING, PCR Today 05/15/2021 11:15 EDT Encounter for other general examination documented in this encounter Results * HUMAN PAPILLOMAVIRUS (HPV) DETECTION-HIGH RISK TYPES (05/15/2021 11:15 EDT) HPV other High Risk types, PCR Negative Negative 05/22/2021 10:44 EDT [facility] Comment:No E6 or E7 mRNA is detected from HPV types 16,18,31,33,35,39,45,51,52,56,58,59,66, and 68 by collection correspondent mediated amplification. Papanicolaou smear specimen (specimen) CERVIX UTERI STRUCTURE / Unknown 05/15/2021 11:15 EDT 05/18/2021 13:08 EDT Yumaezekiel Fish INVESTIGATIONS CONSULTANT MICROBIOLOGY - GENERAL OR DERABLES Final Result [facility] [address] [place] [address] * PAP TEST (05/15/2021 11:15 EDT) Specimens A. Cervix and/or Endocervix , ThinPrep Imaging System with Manual Evaluation 05/22/2021 10:44 EDT [facility] Specimen Adequacy Satisfactory for Evaluation - transformation zone component present 05/22/2021 10:44 EDT [facility] General Categorization Negative for intraepithelial lesion or malignancy 05/22/2021 10:44 T [facility] Descriptive Diagnosis Fungal organisms present morphologically consistent with Janene species. 05/22/2021 10:44 T [facility] Attestation . 05/22/2021 10:44 T [facility] at 1044 Clinical History See below 05/23/19 10:44 T [facility] HPV The result for the Human Papillomavirus (HPV) Detection-High Risk Types is Negative. No E6 or E7 mRNA is detected from HPV types 16,18,31,33,35,39 ,45,51,52,56,58,5 9,66, and 68 by collection correspondent mediated amplification.Ольга ting was performed on specimen [id number] and was resulted on 05/19/2021 1449 EDT by STARR, LAB INSTRUMENT RESULTS IN 05/22/2021 10:44 EDT [facility] Performing Lab [facility] 05/22/2021 10:44 T [facility] Scanned Images 05/22/2021 10:44 T [facility] Papanicolaou smear specimen (specimen) CERVIX UTERI STRUCTURE / Unknown 05/15/2021 11:15 EDT 05/16/2021 10:53 EDT us Shayla Fish APRN PATHOLOGY ORDERABLES Stefany l Result [facility] [address] [place] [address] documented in this encounter Visit Diagnoses Diagnosis Encounter for other general examination documented in this encounter
--- OUTSIDE RECORDS SUMMARY | 2023-12-26 22:57 | XMS_ITS | Encounter Summary ---
Author Organization [facility] [place] [place] [address] Care Team Providers Care Branding Specialist Name Role Phone Sruthi Zurita APRN Primary Care Provider [phone] Encounter Details Date Type Department Care Team (Late st Contact Info) Description 10/08/2022 Telephone Obstetrics [place] [phone] Monica Washington RN Social History Tobacco Use Types Packs/Day Years Used Date Smoking Tobacco: Never Assessed Comments Yes Sex and Gender Information Value Date Recorded Sex Assigned at Not on file Gender Identity Not on file Sexual Orientation Not on file documented as of this encounter Miscellaneous Notes * Telephone Encounter - Monica Washington RN - 10/08/2022 10:00 AM EDT Return TC to Thao Garzon 32 y.o. relating to new symptoms. Thao reports new swelling that she's noticed in the last week. 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 She is using compression stockings, restingwith her feet elevated, and drinking plenty of water. Denies headaches, vision changes, and RUQ pain. Thao reports consistently low blood pressures (100-110/60-70) and doesn't feel that this is related to her blood pressure, although she will check her pressure at work when she works next. She declines BP check in office at this time. Thao also reports feeling dehydrated often, and reports pain with urination that feels like lightening crotch. Denies burning with urination or difficulty emptying. Discussed UTI symptoms. Thao feels that this might be ligaments stretching rather than a UTI, although she will continue to monitor symptoms and update the clinic if she has worsening symptoms. Adequate movement, denies LOF and vaginal bleeding. Thao will call the clinic with any further concerns. Message sent to scheduling to be placed on the cancellation list for an earlier NOB appt for transfer of care. documented in this encounter Plan of Treatment Not on file documented as of this encounter Visit Diagnoses Not on filedocumented in this encounter Care Teams Branding Specialist Relationship Specialty Start Date End Date Sruthi Zurita APRN [address] [place] [address] PCP - General Family Medicine 07/30/22 documented as of this encounter
--- OUTSIDE RECORDS SUMMARY | 2023-12-26 22:57 | XMS_ITS | Encounter Summary ---
[place] [address] Care Team Providers Care Boat Repairer Name Role Phone Sruthi Zurita APRN Primary Care Provider [phone] Encounter Details Date Type Department Care Team (Late st Contact Info) Description 10/31/2022 Telephone Obstetrics [place] [phone] Yesenia Marcus Social History Tobacco Use Types Packs/Day Years [...] on filedocumented in this encounter Care Teams Boat Repairer Relationship Specialty Start Date End Date Sruthi Zurita [place] [address] PCP - General Family Medicine 07/30/22 documented as of this encounter
--- OUTSIDE RECORDS SUMMARY | 2023-12-26 22:57 | XMS_ITS | Encounter Summary ---
Author Organization [facility] [place] [address] Care Team Providers Care Sheet Rock Nailer Name Role Phone Sruthi Zurita APRN Primary Care Provider [phone] Encounter Details Date Type Department Care Team (Latest Contact Info) Description 07/30/2022 Travel Social History Tobacco Use Types Packs/Day [...] on filedocumented in this encounter Care Teams Sheet Rock Nailer Relationship Specialty Start Date End Date Sruthi Zurita [place] [address] [place] [address] PCP - General Family Medicine 07/30/22 documented as of this encounter
--- OUTSIDE RECORDS SUMMARY | 2023-12-26 22:57 | XMS_ITS | Encounter Summary ---
Author Organization [facility] [place] [address] Care Team Providers Care Production Grip Name Role Phone Sruthi Zurita APRN Primary Care Provider [phone] Encounter Details Date Type Department Care Team (Late st Contact Info) Description 11/20/2022 Telephone Obstetrics [place] [phone] Jodi Rojas RN Social History Tobacco Use Types Packs/Day [...] in a fdc (including now)? No 11/02/2022 Comments Yes Sex and Gender Information Value Date Recorded Sex Assigned at Not on file Gender Identity Not on file Sexual Orientation Not on file documented as of this encounter Miscellaneous Notes * Telephone Encounter - Jodi Rojas RN - 11/20/2022 4:18 PM EDT TC to Thao Ramirezor to let her know that we have the RSV vaccine in the clinic now. Left voicemail message instructing patient call [phone], choose option 1, then option 1 again to speak with a internal control specialist who can help her get scheduled for an appointment. documented in this encounter Plan of Treatment Not on file documented as of this encounter Visit Diagnoses Not on filedocumented in this encounter Care Teams Production Grip Relationship Specialty Start Date End Date Sruthi Zurita APRN [facility] [place] [address] PCP - General Family Medicine 07/30/22 documented as of this encounter
--- OUTSIDE RECORDS SUMMARY | 2023-12-26 22:57 | XMS_ITS | Encounter Summary ---
Author Organization [facility] Address [address] [place] [address] Care Team Providers Care Web User Experience Strategist Name Role Phone Unavailable Primary Care Provider Unavailabl e Encounter Details Date Type Department Care Team (Late st Contact Info) Description 01/19/2021 Lab Requisition [facility] Pathology & Laboratory Medicine - [facility] [address] [place] [address] Outr Resulting Lab, Provider Social History Tobacco [...] Procedure Name Priority Date/Time Associated Diagnosis Comments ZZCOVID-19 TEST [facility] PCR Today 01/18/2021 16:00 EST COVID-19 TESTING Routine 01/18/2021 16:0 0 EST documented in this encounter Results * COVID-19 TEST [facility] PCR (01/18/2021 16:00 EST) Swab 01/18/2021 16:0 0 EST 01/19/2021 17:06 EST us Provider Outr Resulting Lab MICROBIOLOGY - GENER AL ORDERABLES Final Result [facility] [address] [place] [address] * COVID-19 TESTING (01/18/2021 16:00 EST) COVID-19 rt-PCR Result Negative Negative 01/20/2021 11:16 EST [facility] Comment: This test has not been FDA cleared or approved. This test has been authorized by FDA under an EUA for use by authorized laboratories. This test has been authorized only for detection of nucleic acid from 2019-nCoV, not for any other viruses or pathogens. This test is only authorized for the duration of the declaration that circumstances exist justifying the authorization of emergency use of in vitro diagnostic tests for detection and/or diagnosis of 2019-nCoV under section 564(b)(1) of Act, 21 U.S.C ?? 360bbb-3(b) (1), unless the authorization is terminated or revoked sooner. Negative results do not preclude 2019-nCoV infection and should not be used as the sole basis for treatment or other patient management decisions. Negative results must be combined with clinical observations, patient history, and epidemiological information. Testing was performed using the mustapha SARS-CoV-2 assay ([employer] on the Mustapha 6800 System Performing Lab Mustapha [address] [facility] 01/20/2021 11:16 EST [facility] Swab 01/18/2021 16:0 0 EST 01/19/2021 17:06 EST us Provider Outr Resulting Lab MICROBIOLOGY - GENER AL ORDERABLES Final Result [facility] [address] [place] [address] documented in this encounter Visit Diagnoses Not on filedocumented in this encounter
--- OUTSIDE RECORDS SUMMARY | 2023-12-26 22:57 | XMS_ITS | Encounter Summary ---
Author Organization [facility] Address [facility] [place] [place] [address] Care Team Providers Care Supervisor Transferring And Boxing Name Role Phone Sruthi Zurita APRN Primary Care Provider [phone] Reason for Visit * Reason Comments Routine Visit Encounter Details Date Type Department Care Team (Late st Contact Info) Description 11/28/2022 10:00 AM EDT Routine Obstetrics [place] [address] Keena Mendes MD [facility] OBSTETRICS [place] [address] GA: 37w4d Social History Tobacco Use Types Packs/Day Years [...] Sign Reading Time Taken Comments Blood Pressure 102/58 11/28/2022 10:09 AM EDT Pulse - - Temperature - - Respiratory Rate - - Oxygen Saturation - - Inhaled Oxygen Concentration - - Weight 60.4 kg (133 lb 3.2 oz) 11/28/2022 10:09 AM EDT Height - - Body Mass Index 24.36 11/02/2022 10:30 AM EDT documented in this encounter Progress Notes * Keena Mendes MD - 11/28/2022 10:00 AM EDT 37w4d Normal at 33w6d with likely transient carpal tunnel syndrome.Normal at 33w6d with likely transient carpal tunnel syndrome. She denies bleeding, leaking of fluid, pain or regular contractions. She notes good movement. Got RSV vaccine at [facility] Patient Vitals for the past 24 hrs: BP 11/28/22 1009 102/58 FH36 Cephalic engaged No edema - uncomplicated other than carpal tunnel syndrome - rtc 1 week ERB documented in this encounter Plan of Treatment Not on file documented as of this encounter Visit Diagnoses Diagnosis care in third trimester documented in this encounter Care Teams Supervisor Transferring And Boxing Relationship Specialty Start Date End Date Sruthi Zurita APRN [facility] [address] PCP - General Family Medicine 07/30/22 documented as of this encounter
--- OUTSIDE RECORDS SUMMARY | 2023-12-26 22:57 | XMS_ITS | Encounter Summary ---
Author Organization [facility] Address [facility] [place] [address] Care Team Providers Care Child Care Sitter Name Role Phone Sruthi Zurita APRN Primary Care Provider [phone] Reason for Visit * Consultation (Routine) - Closed Specialty Diagnoses / Procedures Referred By Lane t Referred To Contact Obstetrics and Gynecology Diagnoses Maternal care for benign neoplasm of corpus uteri, antepartum Uterine leiomyoma, unspecified location Family history of other congenital malformations, deformations and chromosomal abnormalities Encounter for suprvsn of normal , unsp trimester Lorena Nielson, [address] [place] [address] [facility] [place] [address] Referral ID Status Reason Start Date Expiration Date V isits Requested Visits Authorized [id number] Closed Consult, Test & Treat PCP Updated and/or Approved 05/29/2022 05/29/2023 6 6 Encounter Details Date Type Department Care Team (Late st Contact Info) Description 07/30/2022 12:00 PM EDT Office Visit Obstetrics [place] [address] Jesús Freedman MD [facility] [address] OBSTETRICS [place] [address] History of uterine fibroid Social History Tobacco Use Types Packs/Day Years Used Date Smoking Tobacco: Never Assessed Comments Yes Sex and Gender Information Value Date Recorded Sex Assigned at Not on file Gender Identity Not on file Sexual Orientation Not on file documented as of this encounter Last Filed Vital Signs Vital Sign Reading Time Taken Comments Blood Pressure 102/58 07/30/2022 11:49 AM EDT Pulse 61 07/30/2022 11:49 AM EDT Temperature 36.3 ??C (97.3 ??F) 07/30/2022 1 1:49 AM EDT Respiratory Rate - - Oxygen Saturation 100% 07/30/2022 11: 49 AM EDT Inhaled Oxygen Concentration - - Weight 54.4 kg (119 lb 14.4 oz) 023 11:49 AM EDT Height - - Body Mass Index - - documented in this encounter Progress Notes * Jesús Freedman MD - 07/30/2022 12:00 PM EDT Maternal Medicine: Ultrasound Consultation Thao Garzon is a 32 y.o. year old female who is at 20w2d gestation. She is seen in consultation at the request of Lorena Nielson CNM for evaluation of anatomy due to 2cm fibroid noted on first trimester ultrasound. She was seen today for maternal- medicine consultation and u ltrasound evaluation. Review of Systems Constitutional:feels well Movement: normal Contractions: none Leaking: None Bleeding: None Patient Active Problem List Diagnosis Date Noted Raynaud's syndrome 03/04/2018 Chronic Dyspareunia in female 01/11/2017 Resolved Hospital Problems No resolved problems to display. Ultrasound Date: 07/30/2022 Growth appropriate for gestational age Amniotic fluid volume normal Presentation variable Placenta posterior anatomy appears normal. No fibroids noted during exam. Physical Exam BP 102/58 Pulse 61 Temp 36.3 ??C (97.3 ??F) Wt 54.4 kg (119 lb 14.4 oz) SpO2 100% General: alert, well appearing, in no apparent distress, oriented to person, place and time HEENT: normocephalic, atraumatic Abdomen: Gravid, soft, nontender Neurologic:alert, oriented, normal speech, no focal findings or movement disorder noted Psychiatric: Affect is Appropriate. Assessment and Recommendations: 32 y.o. year old female at 20w2d weeks gestation, with normal ultrasound. There is no evidence of fibroid. I appreciate the opportunity to be involved in this patients care, and am available if further questions should arise. Jesús FREEDMAN MD 07/30/2022 Cc: Lorena Nielson, with copy of ultrasound report documented in this encounter Plan of Treatment Scheduled Referrals Name Type Priority Associated Diagnoses Orde r Schedule Referral to Maternal Medicine Outpatient Referral Routine Maternal care for benign neoplasm of corpus uteri, antepartum Uterine leiomyoma, unspecified location Family history of other congenital malformations, deformations and chromosomal abnormalities Encounter for suprvsn of normal , unsp trimester Ordered: 05/29/2022 documented as of this encounter Visit Diagnoses Diagnosis History of uterine fibroid Personal history of other genital system and obstetric disorders documented in this encounter Care Teams Child Care Sitter Relationship Specialty Start Date End Date Sruthi Zurita, PRINTING PLATE CLERK [place] [address] [place] [address] PCP - General Family Medicine 07/30/22 documented as of this encounter
--- OUTSIDE RECORDS SUMMARY | 2023-12-26 22:57 | XMS_ITS | Encounter Summary ---
Author Organization [facility] Address [facility] [place] [address] Care Team Providers Care Electronics Hardware Design Engineer Name Role Phone Sruthi Zurita APRN Primary Care Provider [phone] Reason for Visit * Reason Comments Routine Visit Encounter Details Date Type Department Care Team (Late st Contact Info) Description 12/14/2022 1:30 PM EDT Routine Obstetrics [place] [address] Jesús Freedman MD [facility] [address] OBST[place] [address] GA: 39w6d Social History Tobacco Use Types Packs/Day Years [...] place to sleep or slept in a mcc (including now)? No 11/02/2022 Comments Yes Sex and Gender Information Value Date Recorded Sex Assigned at Not on file Gender Identity Not on file Sexual Orientation Not on file documented as of this encounter Last Filed Vital Signs Vital Sign Reading Time Taken Comments Blood Pressure 118/66 12/14/2022 1:39 PM EDT Pulse - - Temperature - - Respiratory Rate - - Oxygen Saturation - - Inhaled Oxygen Concentration - - Weight 62.3 kg (137 lb 4.8 oz) 12/14/2022 1:39 P M EDT Height - - Body Mass Index 25.11 11/02/2022 10:30 AM EDT documented in this encounter Progress Notes * Jesús Freedman MD - 12/14/2022 1:30 PM EDT 39w6d Patient Active Problem List Diagnosis Code Dyspareunia in female N94.10 Raynaud's syndrome I73.00 Encounter for supervision of other normal , third trimester Z34.83 GA: 39w6d, FH: , FHR: , Movement: Present, Presentation: Cephalic Vitals: BP 118/66 Wt 62.3 kg (137 lb 4.8 oz) BMI 25.11 kg/m?? VE: 4/80/-1/Soft/Anterior, Jimenez: 10 Good movement. No contractions/ leaking fluid / bleeding / pain. No headache, vision changes, RUQ pain. Will move IOL to Saturday12/16/22 due to advanced cervical dilation and distance from [facility]. Very muchwants to avoid delivery at [facility] where she works. Discussed the importance of not delivering on the side of [place], and that if she goes in to labor, delivery at [facility] is preferable Luis Enrique-[address]. documented in this encounter Plan of Treatment Not on file documented as of this encounter Visit Diagnoses Diagnosis Encounter for supervision of other normal , third trimester documented in this encounter Care Teams Electronics Hardware Design Engineer Relationship Specialty Start Date End Date Sruthi Zurita, CEMENTING BULK MATERIAL OPERATOR [address] [place] [address] PCP - General Family Medicine 07/30/22 documented as of this encounter
--- OUTSIDE RECORDS SUMMARY | 2023-12-26 22:57 | XMS_ITS | Encounter Summary ---
Author Organization [facility] Address [facility] [place] [address] Care Team Providers Care Utility Assembler Name Role Phone Sruthi Zurita APRN Primary Care Provider [phone] Reason for Visit * Reason Comments Routine Visit Encounter Details Date Type Department Care Team (Late st Contact Info) Description 12/07/2022 10:15 AM EDT Routine Obstetrics [place] [address] Mario Hayward MD [facility] OBSTETRICS [place] [address] GA: 38w6d Social History Tobacco Use Types Packs/Day Years [...] place to sleep or slept in a skilled nursing (including now)? No 11/02/2022 Comments Yes Sex and Gender Information Value Date Recorded Sex Assigned at Not on file Gender Identity Not on file Sexual Orientation Not on file documented as of this encounter Last Filed Vital Signs Vital Sign Reading Time Taken Comments Blood Pressure 102/64 12/07/2022 10:14 AM EDT Pulse - - Temperature - - Respiratory Rate - - Oxygen Saturation - - Inhaled Oxygen Concentration - - Weight 61.4 kg (135 lb 6.4 oz) 12/07/2022 10:14 AM EDT Height - - Body Mass Index 24.76 11/02/2022 10:30 AM EDT documented in this encounter Progress Notes * Mario Hayward MD - 12/07/2022 10:15 AM EDT 32 yo at 38w6d late transfer from [place], [place] Good activity. No bleeding or leaking fluid. Bedside US = +FH, + activity, Cephalic , Subjectively normal amniotic fluid volume. Carpal Tunnel Syndrome: Worst in the morning. Numb fingertips. Still able to work. GBS negative on 11/14/22 Flu/Covid/RSV/TDap are all up to date. RTO 1 week. Scheduled for IOL at 41w1d MD Floresita documented in this encounter Plan of Treatment Not on file documented as of this encounter Visit Diagnoses Diagnosis Encounter for supervision of other normal , third trimester documented in this encounter Care Teams Utility Assembler Relationship Specialty Start Date End Date Sruthi Zurita APRN [address] [place] [address] PCP - General Family Medicine 07/30/22 documented as of this encounter
--- OUTSIDE RECORDS SUMMARY | 2023-12-26 22:57 | XMS_ITS | Encounter Summary ---
Author Organization [facility] [place] [address] Care Team Providers Care Reflow Operator Name Role Phone Sruthi Zurita APRN Primary Care Provider [phone] Encounter Details Date Type Department Care Team (Late st Contact Info) Description 11/13/2022 Telephone Obstetrics and Gynecology at [facility] [place] [phone] Yesenia Marcus Social History Tobacco Use Types [...] on filedocumented in this encounter Care Teams Reflow Operator Relationship Specialty Start Date End Date Sruthi Zurita, CONRAD [facility] [place] [address] PCP - General Family Medicine 07/30/22 documented as of this encounter
--- OUTSIDE RECORDS SUMMARY | 2023-12-26 22:57 | XMS_ITS | Encounter Summary ---
Author Organization [facility] Address [address] [place] [address] Care Team Providers Care Thai Masseur Name Role Phone Unavailable Primary Care Provider Unavailabl e Encounter Details Date Type Department Care Team (Late st Contact Info) Description 05/29/2022 Lab Requisition [facility] Pathology & Laboratory Medicine - [facility] [address] [place] [address] Outr Resulting Lab, Provider Social History Tobacco [...] RNA BY PCR Routine 05/28/2022 15:50 EDT HEPATITIS B SURFACE ANTIGEN Routine 05/28/2022 15:50 EDT documented in this encounter Results * HEPATITIS B SURFACE ANTIGEN (05/28/2022 15:50 EDT) Hep B Surface Ag Negative Negative 05/29/2022 19:56 EDT [facility] Blood VENOUS BLOOD / Unknown 05/28/2022 15:50 EDT 05/29/2022 17:35 EDT us Provider Outr Resulting Lab CHEMISTRY & BLOOD GA S ORDERABLES Final Result [facility] [address] [place] [address] * HEPATITIS C AB W REFLEX TO HCV RNA BY PCR (05/28/2022 15:50 EDT) Hep C Antibody Negative Negative 05/29/2022 20:26 EDT [facility] Blood VENOUS BLOOD / Unknown 05/28/2022 15:50 EDT 05/29/2022 17:35 EDT us Provider Outr Resulting Lab CHEMISTRY & BLOOD GA S ORDERABLES Final Result [facility] [address] [place] [address] documented in this encounter Visit Diagnoses Not on filedocumented in this encounter
--- OUTSIDE RECORDS SUMMARY | 2023-12-26 22:57 | XMS_ITS | Encounter Summary ---
Author Organization [facility] Address [address] [place] [address] Care Team Providers Care Receiving Team Member Name Role Phone Unavailable Primary Care Provider Unavailabl e Encounter Details Date Type Department Care Team (Late st Contact Info) Description 05/29/2022 Lab Requisition [facility] Pathology & Laboratory Medicine - [facility] [address] [place] [address] Outr Resulting Lab, Provider Social History Tobacco [...] Procedure Name Priority Date/Time Associated Diagnosis Comments CHLAMYDIA/N. GONORRHOEAE AMPLIFIED NUCLEIC ACID Routine 05/28/2022 15:00 EDT documented in this encounter Results * CHLAMYDIA/N. GONORRHOEAE AMPLIFIED RNA (05/28/2022 15:00 EDT) Neisseria gonorrhoeae Result Negative Negative 05/30/2022 13:35 EDT [facility] Chlamydia trachomatis Result Negative Negative 05/30/2022 13:35 EDT [facility] Swab ENTIRE VAGINA / Unknown 05/28/2022 15:00 EDT 05/29/2022 19:45 EDT us Provider Outr Resulting Lab MICROBIOLOGY - GENER AL ORDERABLES Final Result [facility] [address] [place] [address] documented in this encounter Visit Diagnoses Not on filedocumented in this encounter
--- OUTSIDE RECORDS SUMMARY | 2023-12-26 22:57 | XMS_ITS | Encounter Summary ---
Author Organization [facility] Address [facility] [place] [address] Care Team Providers Care Network Architect Name Role Phone Sruthi Zurita APRN Primary Care Provider [phone] Encounter Details Date Type Department Care Team (Late st Contact Info) Description 11/19/2022 Orders Only Obstetrics [place] [address] Elly Ross MD [facility] [place] [address] Social History Tobacco Use Types Packs/Day Years [...] to sleep or slept in a senior care (including now)? No 11/02/2022 Comments Yes Sex and Gender Information Value Date Recorded Sex Assigned at Not on file Gender Identity Not on file Sexual Orientation Not on file documented as of this encounter Plan of Treatment Not on file documented as of this encounter Visit Diagnoses Not on filedocumented in this encounter Care Teams Network Architect Relationship Specialty Start Date End Date [place] [address] PCP - General Family Medicine 07/30/22 documented as of this encounter
--- OUTSIDE RECORDS SUMMARY | 2023-12-26 22:57 | XMS_ITS | Clinical Summary ---
Author Organization [facility] Address [address] [place] [address] Care Team Providers Care Water Rights Specialist Name Role Phone Unavailable Primary Care Provider Unavailabl e Social History Tobacco Use Types Packs/Day Years Used Date Smoking Tobacco: Never Assessed Comments Unknown Sex and Gender Information Value Date Recorded Sex Assigned at Not on file Legal Sex Female 15:26 EDT Gender Identity Not on file Sexual Orientation Not on file Plan of Treatment Health Maintenance Due Date Last Done Comments Hepatitis B Vaccine (1 of 3 - 19+ 3-dose series) 07/07 COVID-19 Vaccine ( season) 2023 Hepatitis C Screen Completed 05/28/2022 Procedures Procedure Name Priority Date/Time Associated Diagnosis Comments HEPATITIS C AB W REFLEX TO HCV RNA BY PCR Routine 05/28/2022 15:50 EDT from Last 3 Months or Most Recently Relevant to Health Maintenance Results * HEPATITIS C AB W REFLEX TO HCV RNA BY PCR (05/28/2022 15:50 EDT) Hep C Antibody Negative Negative 05/29/2022 20:26 EDT [facility] Blood VENOUS BLOOD / Unknown 05/28/2022 15:50 EDT 05/29/2022 17:35 EDT us Provider Outr Resulting Lab CHEMISTRY & BLOOD GA S ORDERABLES Final Result [facility] [address] [place] [address] from Last 3 Months or Most Recently Relevant to Health Maintenance
--- OUTSIDE RECORDS SUMMARY | 2023-12-26 22:57 | XMS_ITS | Encounter Summary ---
Author Organization [facility] [place] [address] Care Team Providers Care Corduroy Cutting Supervisor Name Role Phone Unavailable Primary Care Provider Unavailabl e Reason for Referral * Consultation (Routine) - Closed Specialty Diagnoses / Procedures Referred By Lane whitehead Referred To Contact Obstetrics and Gynecology Diagnoses Maternal care for benign neoplasm of corpus uteri, antepartum Uterine leiomyoma, unspecified location Family history of other congenital malformations, deformations and chromosomal abnormalities Encounter for suprvsn of normal , unsp trimester Lorena Nielson CNM [address] [place] [address] [address] [place] [address] [facility] [address] [address] Referral ID Status Reason Start Date Expiration Date V isits Requested Visits Authorized [id number] Closed Consult, Test & Treat PCP Updated and/or Approved 05/29/2022 05/29/2023 6 6 Encounter Details Date Type Department Care Team (Late st Contact Info) Description 05/29/2022 Transcribe Orders eDH Incoming Referrals [phone] Lorena Nielson CNM [address] [place] [address] [address] [place], [place] [id number] Maternal care for benign neoplasm of corpus uteri, antepartum; Uterine leiomyoma, unspecified location; Family history of other congenital malformations, deformations and chromosomal abnormalities; Encounter for suprvsn of normal , unsp trimester Social History Tobacco Use Types Packs/Day Years Used Date Smoking Tobacco: Never Assessed Sex and Gender Information Value Date Recorded [...] as of this encounter Visit Diagnoses Diagnosis Maternal care for benign neoplasm of corpus uteri, antepartum Uterine leiomyoma, unspecified location Family history of other congenital malformations, deformations and chromosomal abnormalities Encounter for suprvsn of normal , unsp trimester documented in this encounter
--- OUTSIDE RECORDS SUMMARY | 2023-12-26 22:57 | XMS_ITS | Encounter Summary ---
Author Organization [facility] Address [facility] [place] [address] Care Team Providers Care Investor Name Role Phone Sruthi Zurita APRN Primary Care Provider [phone] Reason for Visit * Reason Comments Routine Visit Encounter Details Date Type Department Care Team (Late st Contact Info) Description 11/14/2022 8:45 AM EDT Routine Obstetrics [place] [address] Marlene Kumar MD [facility] [address] OBSTETRICS [place] [address] GA: 35w4d Social History Tobacco Use Types Packs/Day Years [...] place to sleep or slept in a penitentiary (including now)? No 11/02/2022 Comments Yes Sex and Gender Information Value Date Recorded Sex Assigned at Not on file Gender Identity Not on file Sexual Orientation Not on file documented as of this encounter Last Filed Vital Signs Vital Sign Reading Time Taken Comments Blood Pressure 106/60 11/14/2022 8:45 AM EDT Pulse - - Temperature - - Respiratory Rate - - Oxygen Saturation - - Inhaled Oxygen Concentration - - Weight 59.4 kg (131 lb) 11/14/2022 8:45 AM EDT Height - - Body Mass Index 23.96 11/02/2022 10:30 AM EDT documented in this encounter Progress Notes * Marlene Kumar MD - 11/14/2022 8:45 AM EDT FM felt, no LOF, no bleeding or flori. C/o carpal tunnel symptoms. Wrist splints ordered. Reviewed prior labor. Was 4 cm for 4 weeks prior to delivery. Present to hospital and delivered 6 hoursafter arrival by vacuum for NRFWB. Friends are making her nervous about being 1 our away and her last fast labor. Reviewed labor symptoms. Reviewed option of elective induction after 39 weeks if cervix advanced dilation. She does not appear concerned. GBBS done today. Plans RSV vaccine from pharmacy. F/u 1 week documented in this encounter Plan of Treatment Not on file documented as of this encounter Procedures Procedure Name Priority Date/Time Associated Diagnosis Comments GROUP B STREPTOCOCCUS SCREEN Routine 11/14/2022 8:45 AM EDT GROUP B STREP CULTURE SCREEN Routine 11/14/2022 8:45 AM EDT , unspecified gestational age documented in this encounter Results * Group B Streptococcus Screen (11/14/2022 8:45 AM EDT) GBS Screen Neg [facility] Vaginal/Rectal 11/14/2022 8: 45 AM EDT 11/14/2022 2:25 PM EDT Comment:Penicillin Allergy?- >No Narrative Resulting Agency Comment Spec In Lab Marlene Kumar MD MICROBIOLOGY - GEN ERAL ORDERABLES Performing Organization Address City/[facility]/[place] [address] * Group B Strep Culture Screen (11/14/2022 8:45 AM EDT) Group B Streptococcus Culture No Group B Streptococci isolated [facility] Vaginal/Rectal 11/14/2022 8: 45 AM EDT 11/14/2022 2:25 PM EDT Comment:Penicillin Allergy?- >No Narrative Resulting Agency Comment Spec In Lab Marlene Kumar MD MICROBIOLOGY - GEN ERAL ORDERABLES Performing Organization Address City/[facility] [place] [address] documented in this encounter Visit Diagnoses Diagnosis , unspecified gestational age documented in this encounter Care Teams Investor Relationship Specialty Start Date End Date Sruthi Zurita [place] [address] PCP - General Family Medicine 07/30/22 documented as of this encounter
--- OUTSIDE RECORDS SUMMARY | 2023-12-26 22:57 | XMS_ITS | Encounter Summary ---
Author Organization [facility] [place] [address] Care Team Providers Care Merchandise Team Manager Name Role Phone Sruthi Zurita APRN Primary Care Provider [phone] Encounter Details Date Type Department Care Team (Late st Contact Info) Description 12/06/2022 Telephone Obstetrics and Gynecology at [facility] [place] [phone] Yesenia Marcus Social History Tobacco Use Types [...] a senior living (including now)? No 11/02/2022 Comments Yes Sex and Gender Information Value Date Recorded Sex Assigned at Not on file Gender Identity Not on file Sexual Orientation Not on file documented as of this encounter Plan of Treatment Not on file documented as of this encounter Visit Diagnoses Not on filedocumented in this encounter Care Teams Merchandise Team Manager Relationship Specialty Start Date End Date Sruthi Zurita, CONRAD [facility] [place] [address] PCP - General Family Medicine 07/30/22 documented as of this encounter
--- OUTSIDE RECORDS SUMMARY | 2023-12-26 22:57 | XMS_ITS | Encounter Summary ---
[place] [address] Care Team Providers Care Axle Polisher Name Role Phone Sruthi Zurita APRN Primary Care Provider [phone] Reason for Referral * Diagnostic Test (Routine) - Closed Specialty Diagnoses / Procedures Referred By Contac t Referred To Contact Radiology Diagnoses , unspecified gestational age Tumors of body of uterus, antepartum condition or complication Family history of congenital anomalies Anxiety hyperventilation Procedures US OB Detailed Morphology Dorita Etienne CNM [address] [place] [address] [address] [place] [address] [place] [address] Referral ID Status Reason Start Date Expiration Date V isits Requested Visits Authorized [id number] Closed Specialty Service Requested 05/29/2022 11/29/2023 1 1 Reason for Visit * Diagnostic Test (Routine) - Closed Specialty Diagnoses / Procedures Referred By Contac t Referred To Contact Radiology Diagnoses , unspecified gestational age Tumors of body of uterus, antepartum condition or complication Family history of congenital anomalies Anxiety hyperventilation Procedures US OB Detailed Morphology [facility] [address] [place] [address] [facility] [place] [address] Referral ID Status Reason Start Date Expiration Date V isits Requested Visits Authorized [id number] Closed Specialty Service Requested 05/29/2022 11/29/2023 1 1 Encounter Details Date Type Department Care Team (Latest Contact Info) Description 07/30/2022 10:46 AM EDT - 07/30/2022 11:59 PM EDT Hospital [place] [address] Dorita Etienne, [address] [place] [address] , unspecified gestational age; Tumors of body of uterus, antepartum condition or complication; Family history of congenital anomalies; Anxiety hyperventilation Discharge Disposition: Home Social History Tobacco Use [...] Procedure Name Priority Date/Time Associated Diagnosis Comments US OB DETAILED MORPHOLOGY Routine 07/30/2022 11:42 AM EDT , unspecified gestational age Tumors of body of uterus, antepartum condition or complication Family history of congenital anomalies Anxiety hyperventilation documented in this encounter Results * US OB Detailed Morphology (07/30/2022 11:42 AM EDT) Anatomical Region Laterality Modality Pelvis, Abdomen Ultrasound 07/30/2022 11:0 0 AM EDT Impressions 07/30/2022 11:50 AM EDT 2nd Trimester - Detailed Morphology - Summary Single intrauterine with a gestational age of 20w 2d based on LMP ??(03/10/22) Composite age based on the current ultrasound alone is 21w 0d. Current growth parameters are consistent with prior dating indicating normal growth. Amniotic fluid volume is Subjectively normal for gestational age Detailed anatomic evaluation was performed and no structural abnormalities are seen. Thank you for letting us participate in the care of this patient. If you are a health care provider and have any questions regarding this report, please contact the number above. For patients who have questions, please contact the health body care manager that requested your imaging first. ? Sylvia Freedman, Staff Physician Electronically Signed Final Report ?? 07/30/2022 11:49 am Narrative 07/30/2022 11:50 AM EDT OBSTETRICS REPORT ?(Signed Final 07/30/2022 11:49 am) PATIENT INFO: ID #: ? [id number] ?: ??[birth year] (32 yrs)(F) Name: ? THAO GARZON ? Visit Date: 07/30/2022 11:00 am PERFORMED BY: Performed By: ? Thao Carr RDMS Attending: ?Sylvia Freedman MD Referred By: ?DORITA ETIENNE Location: ? [place] SERVICE(S) PROVIDED: [facility] - Detailed Morphology - [id number] ? [id number] INDICATIONS: 20 weeks gestation of ?Z3A.20 TARGETED MORPHOLOGY; UTERINE FIBROID POST FUNDAL AFFECTING /HALF SISTER ??HAD PATENT DUCTUS. THIS PT IS CONSIDERING DELIVERY @ [facility] [place]. VITAL SIGNS: Weight (lb): 112.0 Height: ?5'2 ? BMI: ? 20.48 EVALUATION: Num Of Fetuses: ? 1 Heart Rate(bpm): ??134 Cardiac Activity: ? Observed, normal rhythm Presentation: ? Variable Placenta: ? Posterior P. Cord Insertion: ?Within Normal Limits Amniotic Fluid RY FV: ?Subjectively normal for gestational age --------- BIOMETRY: --------- BPD: ?49.0 ??mm ? G.Age: ?? 20w 6d OFD: ?66.6 ??mm HC: ?183.7 ??mm ? G.Age: ?? 20w 5d AC: ?176.2 ??mm ? G.Age: ?? 22w 4d FL: ? 31.4 ??mm ? G.Age: ?? 19w 5d HUM: ?30.6 ??mm ? G.Age: ?? 20w 1d CER: ?21.8 ??mm ? G.Age: ?? 20w 6d NFT: ?5.21 ??mm NB: ?6.2 ??mm LV: ?7.1 ??mm CM: ?4.8 ??mm CI: ?73.6 ??% ? 70 - 86 FL/HC: ? 17.1 ??% ? 16.8 - 19.8 HC/AC: ? 1.04 ?1.09 - 1.39 FL/BPD: ?64.1 ??% FL/AC: ? 17.8 ??% ? 20 - 24 Est. FW: ? 407 ??gm ?0 lb 14 oz OB HISTORY: : ?2 ? Term: ?? 1 GESTATIONAL AGE: LMP: ? 20w 2d ?Date: ??03/10/22 ? LARRY: ?? 12/15/22 U/S Today: ? 21w 0d ?LARRY: ?? 12/10/22 Best: ?20w 2d ?? Det. By: ??LMP ??(03/10/22) ?LARRY: ?? 12/15/22 TARGETED ANATOMY: Central Nervous System Calvarium/Cranial V.: ??Within Normal Limits Intracranial Celia: ? Within Normal Limits Cavum: ? Within Normal Limits Parenchyma: ?Within Normal Limits Lateral Ventricles: ?Within Normal Limits Choroid Plexus: ?Within Normal Limits Cereb./Vermis: ? Within Normal Limits Cisterna Magna: ?Within Normal Limits Midline Falx: ?Within Normal Limits Spine Cervical: ?Visualized Thoracic: ?Visualized Lumbar: ?Visualized Sacral: ?Visualized Shape/Curvature: ? Visualized Head/Neck Face: ?Within Normal Limits Lips: ?Within Normal Limits Neck: ?Within Normal Limits Nuchal Fold: ? Within Normal Limits Nasal Bone: ?Present Profile: ? Visualized Orbits/Eyes: ? Visualized Mandible: ?Visualized Maxilla: ? Visualized Thorax Thoracic Contour: ?Within Normal Limits Lungs: ? Visualized 4 Chamber View: ?Within Normal Limits Cardiac Activity: ?Normal Rhythm Rt Outflow Tract: ?Visualized Lt Outflow Tract: ?Visualized Aortic Arch: ? Visualized Ductal Arch: ? Visualized SVC: ? Visualized Cardiac [place]: ?Visualized Diaphragm: ? Visualized 3 Vessel View: ? Visualized 3 V Trachea View: ?Visualized IVC: ? Visualized Crossing: ?Visualized Abdomen Ventral Wall: ?Visualized Cord Insertion: ?Visualized Situs: ? Normal Stomach: ? Visualized Liver: ? Visualized Lt Kidney: ? Visualized Rt Kidney: ? Visualized Bladder: ? Visualized Bowel: ? Visualized Extremities Lt Humerus: ?Within Nomal Limits Rt Humerus: ?Within Normal Limits Lt Forearm: ?Within Normal Limits Rt Forearm: ?Within Normal Limits Lt Hand: ? Within Normal Limits Rt Hand: ? Within Normal Limits Lt Femur: ?Within Normal Limits Rt Femur: ?Within Normal Limits Lt Lower Leg: ?Within Normal Limits Rt Lower Leg: ?Within Normal Limits Lt Foot: ? Visualized Rt Foot: ? Visualized Other Umbilical Cord: ?3 vessel cord Genitalia: ? Male CERVIX UTERUS ADNEXA: Right Ovary Size(cm) ? 3.4 ??x ?? 2.6 ?x ??1.3 ? Vol(ml): 6.0 Visualized Left Ovary Size(cm) ? 2.7 ??x ?? 1.7 ?x ??1.4 ? Vol(ml): 3.4 Visualized Procedure Note Jesús Freedman MD - 07/30/2022 OBSTETRICS REPORT (Signed Final 07/30/2022 11:49 am) PATIENT INFO: ID #: [id number] : [birth year] (32 yrs)(F) Name: THAO GARZON Visit Date: 07/30/2022 11:00 am PERFORMED BY: Performed By: Thao Carr RDMS Attending: Sylvia Freedman MD Referred By: DORITA ETIENNE Location: [place] SERVICE(S) PROVIDED: [facility] - Detailed Morphology - [id number] INDICATIONS: 20 weeks gestation of Z3A.20 TARGETED MORPHOLOGY; UTERINE FIBROID POST FUNDAL AFFECTING /HALF SISTER HAD PATENT DUCTUS. THIS PT IS CONSIDERING DELIVERY @ [facility] [place]. VITAL SIGNS: Weight (lb): 112.0 Height: 5'2 BMI: 20.48 EVALUATION: Num Of Fetuses: 1 Heart Rate(bpm): 134 Cardiac Activity: Observed, normal rhythm Presentation: Variable Placenta: Posterior P. Cord Insertion: Within Normal Limits Amniotic Fluid RY FV: Subjectively normal for gestational age --------- BIOMETRY: --------- BPD: 49.0 mm G.Age: 20w 6d OFD: 66.6 mm HC: 183.7 mm G.Age: 20w 5d AC: 176.2 mm G.Age: 22w 4d FL: 31.4 mm G.Age: 19w 5d HUM: 30.6 mm G.Age: 20w 1d CER: 21.8 mm G.Age: 20w 6d NFT: 5.21 mm NB: 6.2 mm LV: 7.1 mm CM: 4.8 mm CI: 73.6 % 70 - 86 FL/HC: 17.1 % 16.8 - 19.8 HC/AC: 1.04 1.09 - 1.39 FL/BPD: 64.1 % FL/AC: 17.8 % 20 - 24 Est. FW: 407 gm 0 lb 14 oz OB HISTORY: : 2 Term: 1 GESTATIONAL AGE: LMP: 20w 2d Date: 03/10/22 LARRY: 12/15/22 U/S Today: 21w 0d LARRY: 12/10/22 Best: 20w 2d Det. By: LMP (03/10/22) LARRY: 12/15/22 TARGETED ANATOMY: Central Nervous System Calvarium/Cranial V.: Within Normal Limits Intracranial Celia: Within Normal Limits Cavum: Within Normal Limits Parenchyma: Within Normal Limits Lateral Ventricles: Within Normal Limits Choroid Plexus: Within Normal Limits Cereb./Vermis: Within Normal Limits Cisterna Magna: Within Normal Limits Midline Falx: Within Normal Limits Spine Cervical: Visualized Thoracic: Visualized Lumbar: Visualized Sacral: Visualized Shape/Curvature: Visualized Head/Neck Face: Within Normal Limits Lips: Within Normal Limits Neck: Within Normal Limits Nuchal Fold: Within Normal Limits Nasal Bone: Present Profile: Visualized Orbits/Eyes: Visualized Mandible: Visualized Maxilla: Visualized Thorax Thoracic Contour: Within Normal Limits Lungs: Visualized 4 Chamber View: Within Normal Limits Cardiac Activity: Normal Rhythm Rt Outflow Tract: Visualized Lt Outflow Tract: Visualized Aortic Arch: Visualized Ductal Arch: Visualized SVC: Visualized Cardiac [place]: Visualized Diaphragm: Visualized 3 Vessel View: Visualized 3 V Trachea View: Visualized IVC: Visualized Crossing: Visualized Abdomen Ventral Wall: Visualized Cord Insertion: Visualized Situs: Normal Stomach: Visualized Liver: Visualized Lt Kidney: Visualized Rt Kidney: Visualized Bladder: Visualized Bowel: Visualized Extremities Lt Humerus: Within Nomal Limits Rt Humerus: Within Normal Limits Lt Forearm: Within Normal Limits Rt Forearm: Within Normal Limits Lt Hand: Within Normal Limits Rt Hand: Within Normal Limits Lt Femur: Within Normal Limits Rt Femur: Within Normal Limits Lt Lower Leg: Within Normal Limits Rt Lower Leg: Within Normal Limits Lt Foot: Visualized Rt Foot: Visualized Other Umbilical Cord: 3 vessel cord Genitalia: Male CERVIX UTERUS ADNEXA: Right Ovary Size(cm) 3.4 x 2.6 x 1.3 Vol(ml): 6.0 Visualized Left Ovary Size(cm) 2.7 x 1.7 x 1.4 Vol(ml): 3.4 Visualized IMPRESSION 2nd Trimester - Detailed Morphology - Summary Single intrauterine with a gestational age of 20w 2d based on LMP (03/10/22) Composite age based on the current ultrasound alone is 21w 0d. Current growth parameters are consistent with prior dating indicating normal growth. Amniotic fluid volume is Subjectively normal for gestational age Detailed anatomic evaluation was performed and no structural abnormalities are seen. Thank you for letting us participate in the care of this patient. If you are a health care provider and have any questions regarding this report, please contact the number above. For patients who have questions, please contact the health body care manager that requested your imaging first. Sylvia Freedman, Staff Physician Electronically Signed Final Report 07/30/2022 11:49 am Dorita Etienne CNM IMG US OB ORDERABLE S documented in this encounter Visit Diagnoses Diagnosis , unspecified gestational age Tumors of body of uterus, antepartum condition or complication Family history of congenital anomalies Anxiety hyperventilation Respiratory malfunction arising from mental factors documented in this encounter Care Teams Axle Polisher Relationship Specialty Start Date End Date Sruthi Zurita, [employer]IVATE WE[employer] ADVISOR [address] [facility] [place] [address] PCP - General Family Medicine 07/30/22 documented as of this encounter
--- OUTSIDE RECORDS SUMMARY | 2023-12-26 22:57 | XMS_ITS | Encounter Summary ---
Author Organization [facility] Address [facility] [place] [address] Care Team Providers Care Tank Officer Name Role Phone Sruthi Zurita APRN Primary Care Provider [phone] Encounter Details Date Type Department Care Team (Latest Contact Info) Description 11/14/2022 Travel Social History Tobacco Use Types Packs/Day [...] on filedocumented in this encounter Care Teams Tank Officer Relationship Specialty Start Date End Date Sruthi Zurita, [place] [address] [place] [address] PCP - General Family Medicine 07/30/22 documented as of this encounter
[2023-12-30 00:19] LABS: Anaplasma phagocytophilum Negative (Negative); B. miyamotoi PCR Negative (Negative); Babesia divergens/MO-1 Negative (Negative); Babesia duncani Negative (Negative); Babesia microti Negative (Negative); Ehrlichia chaffeensis Negative (Negative); Ehrlichia ewingii/canis Negative (Negative); Ehrlichia muris eauclairensis Negative (Negative)
== END 2023-12-26 22:56 | disposition home or self-care (01) ==
LOC: NCHCN 22:55
PROVIDERS: Visit Provider Nurse Practitioner Family
DX: M25.572 Pain in left ankle and joints of left foot (principal)
CPT/HCPCS: 80053; 85652; 87798; 84443; 85025; 86140

== ENCOUNTER 2024-03-03 02:27 | Outpatient (CLI) | payer OTHER, SELFPAY ==
[2024-03-03 10:44] LABS: Panorama Kit Sent via Fed Ex
[2024-03-03 10:55] LABS: Abs Immature Grans 0.02 10^3/uL (0.0-0.06); Absolute Basophil Count 0.05 10^3/uL (0.0-0.2); Absolute Eosinophil Count 0.18 10^3/uL (0.0-0.7); Absolute Lymphocyte Count 1.92 10^3/uL (1.2-3.4); Absolute Monocyte Count 0.37 10^3/uL (0.1-0.8); Basophils % 0.7 %; Eosinophils % 2.4 %; HGB 12.8 g/dL (11.2-15.7); Immature Grans % 0.3 %; Lymphocytes % 25.8 %; MCH 28.9 pg (27.0-33.0); MCHC 34.6 % (32.0-36.0); MCV 84 fL (80-95); Neutrophils % 65.8 %; Platelet Count 241 10^3/uL (130-400); RBC 4.43 10^6/uL (3.93-5.22); RDW 12.3 % (11.7-14.6); RDW-SD 37.2 fL; WBC 7.44 10^3/uL (4.4-10.8)
[2024-03-03 18:29] LABS: Hepatitis B Surface Ag Negative (Negative)
[2024-03-03 19:00] LABS: HIV-1/2 Ag & Ab Screen Negative (Negative)
[2024-03-03 19:03] LABS: Hepatitis C Ab w Rflx HCV PCR Negative (Negative)
[2024-03-04 10:15] LABS: Rubella IgG Ab (UVM) Positive (See Note); Varicella IgG Antibody Positive (See Note)
[2024-03-05 15:32] LABS: Syphilis IgG w/Reflex Nonreactive (Nonreactive)
== END 2024-03-03 02:28 | disposition home or self-care (01) ==
PROVIDERS: Visit Provider Advanced Practice Midwife
DX: Z34.91 Encounter for supervision of normal pregnancy, unspecified, first trimester (principal)
CPT/HCPCS: 36415; 86787; 86803; 86850; 86900; 86901; 87340; 87389; 85025; 86762; 86780

== ENCOUNTER 2024-03-03 10:46 | Outpatient (REF) | payer OTHER, SELFPAY ==
--- NOTE | 2024-03-03 09:50 | PAPFT_PTH ---
PATIENT: Thao Garzon LOC: [facility] U#:[id number] AGE/SX: 33/F ROOM: RE03/03/[address]: Lorena Peters : 1990 BED: DIS: 03/03/2024 SPEC #: [id number] RECD: 03/03/24 12:57 STATUS: ZAC REPadma #: [id number] RASENIO: 03/03/24 09:[address]: Lorena Peters DEPT: [facility] Cytology RECD BY: Ambreen Ratliff ENTERED: 03/03/24 12:57 SP TYPE: PAPFT OT DR: Unknown,Unknown Tissues: 1 - CX/ENDOCX FOR PAP SMEARS Procedures: PAP THIN PREP/[facility] Screening HPV DNA PROBE Comments: [id number] (HPV 16 & 18/45) (CHLAMYDIA/GC)
[2024-03-03 16:30] LABS: *AMPHETAMINES SCREEN URINE Negative (Negative); *BARBITURATES SCREEN URINE Negative (Negative); *BENZODIAZEPINES SCREEN URINE Negative (Negative); Cannabinoids THC Negative (Negative); Cocaine Screen,Urine Negative (Negative); METHADONE URINE SCREEN Negative (Negative); OPIATES URINE SCREEN Negative (Negative)
[2024-03-03 16:37] LABS: Tricyclic Antidepressants Negative (Negative)
[2024-03-03 17:17] LABS: Lab Add On Test DONE
[2024-03-04 11:20] LABS: Fentanyl Scr w/Rfx Confirm Negative ng/mL (<1)
[2024-03-04 12:26] LABS: Chlamydia Result Negative (Negative); GC Result Negative (Negative)
[2024-03-06 09:27] LABS: Buprenorphine Negative ng/mL (Cutoff: 5.0); Norbuprenorphine Negative ng/mL (Cutoff: 2.5)
== END 2024-03-03 10:47 | disposition home or self-care (01) ==
LOC: LBN 10:46
PROVIDERS: Visit Provider Advanced Practice Midwife
DX: Z34.81 Encounter for supervision of other normal pregnancy, first trimester (principal); Z3A.11 11 weeks gestation of pregnancy
CPT/HCPCS: 80307; 80348; 87491; 87591; 88142; 87086; 87624

== ENCOUNTER 2024-06-02 13:40 | Outpatient (CLI) | payer OTHER, SELFPAY ==
[2024-06-02 13:36] LABS: MCH 28.9 pg (27.0-33.0); MCHC 33.3 % (32.0-36.0); MCV 87 fL (80-95); MPV 8.7 fL (8.0-11.0); Platelet Count 240 10^3/uL (130-400); RDW 12.8 % (11.7-14.6); RDW-SD 40.4 fL; WBC 7.04 10^3/uL (4.4-10.8)
[2024-06-02 14:20] LABS: ALT 35 U/L (14-59); AST 20 U/L (15-37); Albumin 2.5 g/dL (3.4-5.0); Alkaline Phosphatase 144 U/L (46-116); Anion Gap 5.3 mmol/L (3-11); BUN 11 mg/dL (7-18); Bilirubin, Total 0.3 mg/dL (0.2-1.0); CO2 28.7 mmol/L (21.0-32.0); CREATININE 0.6 mg/dL (0.55-1.02); Calcium 8.9 mg/dL (8.5-10.1); Chloride 104 mmol/L (98-107); Estimated GFR 119.97 (mL/min/1.73m2); Ferritin 26 ng/mL (8-252); Glucose 77 mg/dL (74-106); Potassium 3.8 mmol/L (3.5-5.1); Sodium 138 mmol/L (136-145); Total Protein 6.8 g/dL (6.4-8.2)
== END 2024-06-02 13:41 | disposition home or self-care (01) ==
LOC: LBO 13:41
PROVIDERS: PCP Nurse Practitioner Family; Visit Provider Advanced Practice Midwife
DX: Z34.92 Encounter for supervision of normal pregnancy, unspecified, second trimester
CPT/HCPCS: 36415; 80053; 85027; 82728

== ENCOUNTER 2024-06-23 03:58 | Outpatient (CLI) | payer OTHER, SELFPAY ==
[2024-06-23 11:29] LABS: HGB 11.4 g/dL (11.2-15.7); MCH 29.2 pg (27.0-33.0); MCHC 34.5 % (32.0-36.0); MCV 84 fL (80-95); MPV 9.1 fL (8.0-11.0); Platelet Count 218 10^3/uL (130-400); RBC 3.91 10^6/uL (3.93-5.22); RDW 13.6 % (11.7-14.6); RDW-SD 41.7 fL; WBC 6.77 10^3/uL (4.4-10.8)
[2024-06-23 11:57] LABS: Glucose,1 Hr (Glucola) 127 mg/dL (80-140)
== END 2024-06-23 03:59 | disposition home or self-care (01) ==
LOC: LBO 03:59
PROVIDERS: Advanced Practice Midwife; PCP Nurse Practitioner Family; Visit Provider Advanced Practice Midwife
DX: Z34.91 Encounter for supervision of normal pregnancy, unspecified, first trimester
CPT/HCPCS: 36415; 82950; 85027

== ENCOUNTER 2024-10-13 15:57 | Outpatient (REF) | payer OTHER, SELFPAY ==
[2024-10-13 19:25] LABS: Anion Gap 8.1 mmol/L (3-11); BUN 16 mg/dL (7-18); CO2 29.9 mmol/L (21.0-32.0); Calcium 9.3 mg/dL (8.5-10.1); Calculated LDL 150 mg/dL (<100); Chloride 103 mmol/L (98-107); Cholesterol 225 mg/dL (<200); Estimated GFR 119.23 (mL/min/1.73m2); Glucose 80 mg/dL (74-106); HDL Cholesterol 64 mg/dL (>or=50); Potassium 4.2 mmol/L (3.5-5.1); Sodium 141 mmol/L (136-145); Triglyceride 59 mg/dL (<150)
== END 2024-10-13 15:58 | disposition home or self-care (01) ==
LOC: NCHCN 15:57
PROVIDERS: PCP Student in an Organized Health Care Education/Training Program; Visit Provider Student in an Organized Health Care Education/Training Program
DX: Z13.1 Encounter for screening for diabetes mellitus (principal); Z13.220 Encounter for screening for lipoid disorders
CPT/HCPCS: 80048; 80061